=== PATIENT | male | born 1965 | race Caucasian/White ===

== ENCOUNTER → 2017-04-24 | Outpatient (CLI) | payer OTHER ==
--- NOTE | 2017-04-24 09:08 | XR ---
EXAMINATION TYPE: XR KUB DATE OF EXAM: 04/24/2017 9:03 AM CLINICAL HISTORY: History of kidney stone with right-sided pain. TECHNIQUE: 2 supine KUB images of the abdomen are obtained. COMPARISON: Prior abdominal x-ray June 05, 2016. CT abdomen and pelvis January 24, 2012. FINDINGS: There is marked interval improvement in right-sided calcific burden with 2 calculi measurin g up to 8 mm in size identified on current study. No definite left-sided nephrolithiasis. Coils from ventral wall hernia repair surgery are redemonstrated over the midline of the lower abdome n. Vascular calcification and pelvis is again seen. Osseous structures are intact. IMPRESSION: Two right-sided calculi measuring up to 8 mm on current study significantly improved from prior x-ray study.
== END | disposition home or self-care (01) ==
LOC: RADXRMAIN 08:41
PROVIDERS: ATTEND Urology
DX: N20.0 Calculus of kidney (principal)
CPT/HCPCS: 74000

== ENCOUNTER → 2018-01-27 | Outpatient (CLI) | payer OTHER ==
--- NOTE | 2018-01-27 09:56 | XR ---
EXAMINATION TYPE: XR KUB DATE OF EXAM: 01/27/2018 9:42 AM CLINICAL HISTORY: Right-sided kidney stones with increasing right-sided pain. TECHNIQUE: Two supine KUB images of the abdomen are obtained. COMPARISON: Abdominal x-ray April 24, 2017 FINDINGS: There is nonvisualization of 2 right-sided renal calculi measuring up to 6 mm long axis pro jecting over right 12th rib. The previously visualized larger calculus measuring 12 mm on current shanice dy is redemonstrated medial to these calculi but persists at level of L2 vertebra and likely is withi n collecting system at [facility]. No definite left-sided nephrolithiasis. Calcification of vas deferens mildred pected in the bilateral pelvis similar to prior. Lower central calcific foci may reflect tiny phlebol iths and are stable just above pubic symphysis. There is some multilevel spurring in the spine. There is overall nonobstructive bowel gas pattern. Th ere is mild to moderate degenerative change in both hips. IMPRESSION: Persistent right-sided nephrolithiasis, dominant calculus measures 12 mm on current study and is felt to be in collecting system or at [facility].
== END | disposition home or self-care (01) ==
LOC: RADXRMAIN 09:17
PROVIDERS: ATTEND Urology
DX: N20.0 Calculus of kidney (principal)
CPT/HCPCS: 74018

== ENCOUNTER → 2018-03-18 | Outpatient (CLI) | payer OTHER ==
--- NOTE | 2018-03-18 09:38 | XR ---
EXAMINATION TYPE: XR KUB DATE OF EXAM: 03/18/2018 HISTORY: Pain Comparison: None.Single KUB is submitted for interpretation. Findings: Right renal calculi: 7.1 mm mid pole right renal calculus. Right ureteral calculi: 9.1 mm calculus overlies the right renal pelvis. Left renal calculi: None Visualized. Left ureteral calculi: None Visualized. Pelvic calcifications: None Visualized. Bowel gas pattern is unremarkable. No free air. No mass effects. IMPRESSION: 1. 9.1 mm calculus overlies the right renal pelvis. 2. Right renal calculus.
== END | disposition home or self-care (01) ==
LOC: RADXRMAIN 08:48
PROVIDERS: ATTEND Urology
DX: N20.0 Calculus of kidney (principal)
CPT/HCPCS: 74018

== ENCOUNTER → 2018-04-16 | Outpatient (CLI) | payer OTHER ==
--- NOTE | 2018-04-16 10:47 | XR ---
EXAMINATION TYPE: XR abdomen 1V DATE OF EXAM: 04/16/2018 CLINICAL DATA: 52 year-old male right renal calculus, [facility] COMPARISON: 03/18/2018 FINDINGS: Cholecystectomy clips. Nonobstructive bowel gas pattern. Scattered mild stool on the right. There are 2 calculi in the right mid abdomen measuring 9 mm and 7 mm, somewhat medially located to th e right renal shadow. Coils in the mid abdomen from prior mesh repair. Vascular calcifications in the pelvis. Mild degenerative changes of hips. IMPRESSION: 2 calculi on the right measuring 9 mm and 7 mm. These is somewhat medially located relative to the ri ght renal shadow, possibly within the collecting system.
== END | disposition home or self-care (01) ==
LOC: RADXRMAIN 09:01
PROVIDERS: ATTEND Urology
DX: N20.0 Calculus of kidney (principal)
CPT/HCPCS: 74018

== ENCOUNTER 2019-09-12 19:36 | Inpatient (IN) | payer MEDICARE, OTHER ==
[2019-09-12] MEDS ORDERED: ONDANSETRON 4 MG/2 ML VIAL IVP STA (20:08)
[2019-09-12] MEDS ORDERED: SODIUM CHLORIDE 0.9% 1,000 ML IV STA ×2 (20:08)
[2019-09-12] MEDS ORDERED: MORPHINE SULFATE 4 MG/ML SYRINGE IVP STA (20:09)
[2019-09-12] MEDS ORDERED: LABETALOL 5 MG/ML VIAL MDV IVP STA (20:09)
--- NOTE | 2019-09-12 20:51 | ED ---
Back Pain HPI <David Mayen - Last Filed: 09/12/19 20:58> - General Source: patient, EMS, RN notes reviewed, old records reviewed Limitations: no limitations <Natasha Geller - Last Filed: 09/12/19 21:09> - General Chief Complaint: Back Pain/Injury Stated Complaint: Urogenital Time Seen by Provider: 09/12/19 19:50 - History of Present Illness Initial Comments: This patient's 53-year-old male, who presents emergency Department today from transfer form and come down so. That time he was diagnosed with dysuria, and a 4 mm right ureteral stone. Patient's urologist is Dr. Nolan. He reports that he has had some polyuria for the past day and complaining of right flank pain starting last night. Patient also complained of a significant headache with an elevated blood pressure at the emergency room. He had a CAT scan of his head which showed no acute changes. He also recommends emergency department quite hypertensive, with blood pressures of 190/111. He did have his blood pressure medications today as scheduled. Patient was transferred here for concerns for urinary tract infection associated with obstructing right ureteral stone. (Natasha Geller) - Related Data Home Medications Medication Instructions Recorded Confirmed Levothyroxine Sodium [Synthroid] 112 mcg PO DAILY 03/19/16 06/05/16 Lisinopril-Hctz 20-25 mg 2 tab PO QAM 03/19/16 06/05/16 [Zestoretic 20-25] Hydrocodone/Acetaminophen [[place] 1 tab PO Q4H PRN 04/01/16 06/05/16 10-325] Previous Rx's Medication Instructions Recorded Hydrocodone/Acetaminophen [[place] 1 each PO Q4HR PRN #30 tab 06/06/16 7.5-325] Allergies Allergy/AdvReac Type Severity Reaction Status Date / Time sulfamethoxazole Allergy Intermediate Rash/Hives Verified 09/12/19 19:50 [From Bactrim] trimethoprim [From Bactrim] Allergy Intermediate Rash/Hives Verified 09/12/19 19:50 Review of Systems ROS Other: All systems not noted in ROS Statement are negative. <David Mayen - Last Filed: 09/12/19 20:58> ROS Other: All systems not noted in ROS Statement are negative. <Natasha Geller - Last Filed: 09/12/19 21:09> ROS Statement: Those systems with pertinent positive or pertinent negative responses have been documented in the HPI. Past Medical History Past Medical History: Hypertension, Renal Disease Additional Past Medical History / Comment(s): Kidney stones, gout, UTI. History of Any Multi-Drug Resistant Organisms: None Reported Past Surgical History: Adenoidectomy, Ear Surgery, Hernia Repair, Orthopedic Surgery Additional Past Surgical History / Comment(s): lithotripsy, gall bladder removed. Past Anesthesia/Blood Transfusion Reactions: No Reported Reaction, Motion Sickness Past Psychological History: No Psychological Hx Reported Smoking Status: Never smoker Past Alcohol Use History: Rare Past Drug Use History: None Reported - Past Family History Father Family Medical History: Diabetes Mellitus Additional Family Medical History / Comment(s): LIVER &COLON CANCER. KIDNEY STONES Mother History Unknown: Yes Additional Family Medical History / Comment(s): MOM IS HEALTHY SHE STATES NO MEDICAL PROBLEMS <Tori Gellerily - Last Filed: 09/12/19 21:09> General Exam Limitations: no limitations General appearance: alert, in no apparent distress Head exam: Present: atraumatic, normocephalic, normal inspection Eye exam: Present: normal appearance, PERRL, EOMI. Absent: scleral icterus, conjunctival injection, periorbital swelling ENT exam: Present: normal exam, mucous membranes moist Neck exam: Present: normal inspection. Absent: tenderness, meningismus, lymphadenopathy Respiratory exam: Present: normal lung sounds bilaterally. Absent: respiratory distress, wheezes, rales, rhonchi, stridor Cardiovascular Exam: Present: regular rate, normal rhythm, normal heart sounds. Absent: systolic murmur, diastolic murmur, rubs, gallop, clicks GI/Abdominal exam: Present: soft, tenderness (Right-sided lower abdominal tenderness and right CVA tenderness.), normal bowel sounds. Absent: distended, guarding, rebound, rigid Extremities exam: Present: normal inspection, full ROM, normal capillary refill. Absent: tenderness, pedal edema, joint swelling, calf tenderness Back exam: Present: normal inspection Neurological exam: Present: alert, oriented X3, CN II-XII intact Psychiatric exam: Present: normal affect, normal mood <Tori Gellerily - Last Filed: 09/12/19 21:09> - General Exam Comments Initial Comments: 53-year-old male. Patient appears in moderate discomfort. (Natasha Geller) Course <David Mayen - Last Filed: 09/12/19 20:58> Vital Signs 09/12/19 19:42 Temperature 99.6 F Pulse Rate 90 Respiratory 18 Rate Blood Pressure 192/111 O2 Sat by Pulse 96 Oximetry - Reevaluation(s) Reevaluation #1: 09/12/19 20:53 PA supervision: I personally did evaluate the patient he did present with complaints of right flank pain is started around 11 AM today he did present to [facility] he complains worse than usual right flank pain it fevers chills sweats shakes he's been having intermittent episodes of hematuria. He also was noted have a markedly elevated blood pressure he did also have a headache that started in the back was head radiating around to the front. He did have a CAT scan done at the other facility which was negative. He presents here with evidence of hydroureter with a 4 mm stone at the [facility] on that side. He also demonstrates evidence of pyelonephritis. 09/12/19 20:58 The case was discussed with Dr. Phelps. Will be nothing by mouth after midnight. His blood pressure has improved. Due to blood pressure issues and other medical issues patient be admitted to Dr. Kenyon service (David Mayen) Medical Decision Making - Lab Data Result diagrams: 09/12/19 20:40 - Radiology Data Radiology results: report reviewed <YimiNatasha - Last Filed: 09/12/19 21:09> - Medical Decision Making [id number] male presents today for transfer for [facility] for concern for right sided 4 mm uteropelvic junction stone with associated urinary tract infection. Urine culture was completed there. He was given 1 g of Rocephin prior to arrival. He wants emergency Department hypertensive, was given pain medication and blood pressure had went down on its own. Patient at this time did have EKG performed another lab testing was completed. We discussed the case with medicine Dr. scott with a consult to Dr. Neil Quintana, the urologist she is adult education professional. Patient will be remaining nothing by mouth at midnight if a procedure such as stenting would need to be done. will receive 1 g of Rocephin every 24-hour hours at this time. Given 1 dose of Flomax and pain medicine and is much improved. (Natasha Geller) - Lab Data Lab Results 09/12/19 Range/Units 20:40 WBC 13.8 H (3.8-10.6) k/uL RBC 4.33 (4.30-5.90) m/uL Hgb 13.5 (13.0-17.5) gm/dL Hct 39.5 (39.0-53.0) % MCV 91.1 (80.0-100.0) fL MCH 31.1 (25.0-35.0) pg MCHC 34.1 (31.0-37.0) g/dL RDW 15.6 H (11.5-15.5) % Plt Count 185 (150-450) k/uL Neutrophils % 91 % Lymphocytes % 5 % Monocytes % 3 % Eosinophils % 1 % Basophils % 0 % Neutrophils # 12.5 H (1.3-7.7) k/uL Lymphocytes # 0.7 L (1.0-4.8) k/uL Monocytes # 0.4 (0-1.0) k/uL Eosinophils # 0.1 (0-0.7) k/uL Basophils # 0.0 (0-0.2) k/uL 09/12/19 21:05 EKG performed and 2019 shows normal sinus rhythm and axis. A complete right bundle branch block. Possible inferior infarct age undetermined. Ventricular rate of 88 beats were minute period. Intervals 158 ms. QR restriction is 160 no seconds. QT QTc is 36/460 70 seconds. (Natasha Geller) - Radiology Data CT of abdomen and pelvis shows obstructing Tikosyn the right uteropelvic junction with moderate right-sided hydronephrosis and. Effort edema. Numerous right renal colliculi. Stable left renal monitor to calculus. CT of the brain was negative for any acute abdomen or maladies, slight matter hypodensity sugge sted chronic small vessel ischemia. (Natasha Geller) Disposition <David Mayen - Last Filed: 09/12/19 20:58> Is patient prescribed a controlled substance at d/c from ED?: No Time of Disposition: 21:08 <Natasha Geller - Last Filed: 09/12/19 21:09> Clinical Impression: Right ureteral stone, Hypertension, UTI (urinary tract infection) Disposition: ADMITTED IP TO THIS HOSP Condition: Stable Referrals: Torrey Hand MD [Primary Care Provider] - 1-2 days
[2019-09-12 21:00] LABS: Basophils % (A) 0 %; Eosinophils # (A) 0.1 k/uL (0-0.7); Eosinophils % (A) 1 %; HCT 39.5 % (39.0-53.0); HGB 13.5 gm/dL (13.0-17.5); Lymphocytes # (A) 0.7 k/uL (1.0-4.8); Lymphocytes % (A) 5 %; MCH 31.1 pg (25.0-35.0); MCHC 34.1 g/dL (31.0-37.0); MCV 91.1 fL (80.0-100.0); Mean Platelet Volume 5.8; Monocytes # (A) 0.4 k/uL (0-1.0); Monocytes % (A) 3 %; Neutrophils # (A) 12.5 k/uL (1.3-7.7); Neutrophils % (A) 91 %; Platelet Count 185 k/uL (150-450); RBC 4.33 m/uL (4.30-5.90); RDW 15.6 % (11.5-15.5); WBC 13.8 k/uL (3.8-10.6)
[2019-09-12] MEDS ORDERED: TAMSULOSIN 0.4 MG CAP.ER.24H PO STA (21:03)
--- NOTE | 2019-09-12 21:06 | XR ---
EXAMINATION TYPE: XR chest 2V DATE OF EXAM: 09/12/2019 COMPARISON: NONE HISTORY: Hypertension. TECHNIQUE: Frontal and lateral views of the chest are obtained. FINDINGS: Heart and mediastinum are normal. Lungs are clear of infiltrate. There is no pleural effus ion. There are no hilar masses. IMPRESSION: No active cardiopulmonary disease.
[2019-09-12] MEDS ORDERED: ONDANSETRON 4 MG/2 ML VIAL IVP PRN (21:09)
[2019-09-12] MEDS ORDERED: KETOROLAC 30 MG/ML 1 ML VIAL IVP PRN (21:09)
[2019-09-12] MEDS ORDERED: IBUPROFEN 400 MG TAB PO PRN (21:09)
[2019-09-12] MEDS ORDERED: NALOXONE 0.4 MG/ML 1 ML VIAL IV PRN (21:09)
[2019-09-12] MEDS ORDERED: ACETAMINOPHEN TAB 325 MG TAB PO PRN (21:09)
[2019-09-12 21:17] LABS: Albumin 3.6 g/dL (3.5-5.0); Calcium 9.2 mg/dL (8.4-10.2); Magnesium 1.7 mg/dL (1.6-2.3); Potassium 3.6 mmol/L (3.5-5.1); Total Bilirubin 0.9 mg/dL (0.2-1.3); Total Protein 6.7 g/dL (6.3-8.2)
[2019-09-12] MEDS: SODIUM CHLORIDE 0.9% 1,000 ML IV SCH (22:33)
[2019-09-13 03:04] LABS: Appearance,Urine Cloudy (Clear); Bacteria,Urine Rare /hpf; Bilirubin,Urine Negative (Negative); Blood,Urine Small (Negative); Color,Urine Yellow; Glucose,Urine (UA) Negative (Negative); Hyaline Casts,Urine 4 /lpf (0-2); Ketones,Urine Negative (Negative); Leukocyte Esterase,Urine Large (Negative); Mucus,Urine Few /hpf; Nitrite,Urine Negative (Negative); PH, Urine 6.5 (5.0-8.0); Protein,Urine 2+ (Negative); RBC,Urine 19 /hpf (0-5); Specific Gravity,Urine 1.017 (1.001-1.035); Squamous Epithelial Cell,Urine 2 /hpf (0-4); Urobilinogen,Urine <2.0 mg/dL (<2.0)
[2019-09-13] MEDS: MORPHINE SULFATE 4 MG/ML SYRINGE IV PRN ×3 (04:32→23:53)
[2019-09-13] MEDS ORDERED: LEVOTHYROXINE 112 MCG TAB PO SCH (06:30)
[2019-09-13] MEDS: SODIUM CHLORIDE 0.9% 1,000 ML IV SCH ×3 (08:05→16:49)
[2019-09-13] MEDS ORDERED: PANTOPRAZOLE 40 MG/10 ML VIAL IV SCH (09:00)
[2019-09-13] MEDS ORDERED: LISINOPRIL-HCTZ 20-25 MG 1 EACH TAB PO SCH (09:00)
[2019-09-13] MEDS ORDERED: CYCLOBENZAPRINE 5 MG TAB PO PRN (11:06)
[2019-09-13] MEDS: ENOXAPARIN 40 MG/0.4 ML SYRINGE SQ SCH (11:14)
--- NOTE | 2019-09-13 13:47 | P.GSCN ---
History of Present Illness Consult date: 09/13/19 Reason for Consult: right ureteral calculi History of present illness: Mr. Mason is a 53-year-old male, who was transfered from an outside hospital for ureteral stone and UTI. He presented with dysuria, flank pain and a 4 mm right ureteral stone and was subsquently transfered to [facility] for managment of his UTI and stone. He has seen Dr Koroma in the past and he underwent PCNL in 2016. He has hx of recurrent stones, multiple surgeries before. He did complains of chills and subjective fever, but he was afebrile on presentation to the ED. This am he indicates he still has pain in right flank Review of Systems - Constitutional Reports chills, Reports fatigue - EENT Ears, nose, mouth and throat: Reports headache, Denies dysphagia - Cardiovascular Denies chest pain, Denies dyspnea on exertion - Respiratory Denies cough, Denies dyspnea - Gastrointestinal Reports nausea - Genitourinary Reports dysuria, Reports flank pain, Reports kidney stones - Neurological Denies confusion, Denies weakness Past Medical History Past Medical History: Hypertension, Renal Disease, Thyroid Disorder Additional Past Medical History / Comment(s): Kidney stones, gout, UTI. History of Any Multi-Drug Resistant Organisms: None Reported Past Surgical History: Adenoidectomy, Ear Surgery, Hernia Repair, Orthopedic S urgery Additional Past Surgical History / Comment(s): lithotripsy, gall bladder removed. Past Anesthesia/Blood Transfusion Reactions: No Reported Reaction, Motion Sickness Past Psychological History: No Psychological Hx Reported Smoking Status: Never smoker Past Alcohol Use History: Rare Past Drug Use History: None Reported - Past Family History Father Family Medical History: Diabetes Mellitus Additional Family Medical History / Comment(s): LIVER &COLON CANCER. KIDNEY STONES Mother History Unknown: Yes Additional Family Medical History / Comment(s): MOM IS HEALTHY SHE STATES NO MEDICAL PROBLEMS Medications and Allergies Home Medications Medication Instructions Recorded Confirmed Type Lisinopril-Hctz 20-25 mg 2 tab PO QAM PRN 03/19/16 09/13/19 History [Zestoretic 20-25] Cyclobenzaprine [Flexeril] 5 mg PO TID PRN 09/13/19 09/13/19 History Ibuprofen 800 mg PO Q6H PRN 09/13/19 09/13/19 History Levothyroxine Sodium [Synthroid] 75 mcg PO DAILY 09/13/19 09/13/19 History Lisinopril-Hctz 20-25 mg 1 tab PO BID PRN 09/13/19 09/13/19 History [Zestoretic 20-25] Allergies Allergy/AdvReac Type Severity Reaction Status Date / Time sulfamethoxazole Allergy Intermediate Rash/Hives Verified 09/13/19 11:37 [From Bactrim] trimethoprim [From Bactrim] Allergy Intermediate Rash/Hives Verified 09/13/19 11:37 Surgical - Exam Vital Signs Temp Pulse Resp BP Pulse Ox 99.6 F 90 18 192/111 96 09/12/19 19:42 09/12/19 19:42 09/12/19 19:42 09/12/19 19:42 09/12/19 19:42 - General well developed, well nourished, no distress - Eyes normal ocular movement, no pale - ENT normal mucosa, no hearing loss - Respiratory normal expansion, normal respiratory effort - Abdomen Abdomen: soft, non tender, no distended - Psychiatric oriented to time, oriented to person, oriented to place, speech is normal Results - Labs 09/12/19 20:40 09/12/19 20:40 Abnormal Lab Results - Last 24 Hours (Table) 09/12/19 09/12/19 Range/Units 20:40 20:40 WBC 13.8 H (3.8-10.6) k/uL RDW 15.6 H (11.5-15.5) % Neutrophils # 12.5 H (1.3-7.7) k/uL Lymphocytes # 0.7 L (1.0-4.8) k/uL Creatinine 1.80 H (0.66-1.25) mg/dL Glucose 125 H (74-99) mg/dL Diabetes panel 09/12/19 Range/Units 20:40 Sodium 139 (137-145) mmol/L Potassium 3.6 (3.5-5.1) mmol/L Chloride 103 (98-107) mmol/L Carbon Dioxide 28 (22-30) mmol/L BUN 19 (9-20) mg/dL Creatinine 1.80 H (0.66-1.25) mg/dL Glucose 125 H (74-99) mg/dL Calcium 9.2 (8.4-10.2) mg/dL AST 34 (17-59) U/L ALT 59 (21-72) U/L Alkaline Phosphatase 55 (38-126) U/L Total Protein 6.7 (6.3-8.2) g/dL Albumin 3.6 (3.5-5.0) g/dL Calcium panel 09/12/19 Range/Units 20:40 Calcium 9.2 (8.4-10.2) mg/dL Albumin 3.6 (3.5-5.0) g/dL Pituitary panel 09/12/19 Range/Units 20:40 Sodium 139 (137-145) mmol/L Potassium 3.6 (3.5-5.1) mmol/L Chloride 103 (98-107) mmol/L Carbon Dioxide 28 (22-30) mmol/L BUN 19 (9-20) mg/dL Creatinine 1.80 H (0.66-1.25) mg/dL Glucose 125 H (74-99) mg/dL Calcium 9.2 (8.4-10.2) mg/dL Adrenal panel 09/12/19 Range/Units 20:40 Sodium 139 (137-145) mmol/L Potassium 3.6 (3.5-5.1) mmol/L Chloride 103 (98-107) mmol/L Carbon Dioxide 28 (22-30) mmol/L BUN 19 (9-20) mg/dL Creatinine 1.80 H (0.66-1.25) mg/dL Glucose 125 H (74-99) mg/dL Calcium 9.2 (8.4-10.2) mg/dL Total Bilirubin 0.9 (0.2-1.3) mg/dL AST 34 (17-59) U/L ALT 59 (21-72) U/L Alkaline Phosphatase 55 (38-126) U/L Total Protein 6.7 (6.3-8.2) g/dL Albumin 3.6 (3.5-5.0) g/dL Assessment and Plan Assessment: 53 yo male with hx of 4 mm right distal ureteral stone and UTI. He has hx of recurrent stone. He was complaining of subjective fever and chills, of note he was afebrile on presentation Plan: -UA/Urine culture -Continue abx -OR for cysto and right ureteral stent placemnt
[2019-09-13] MEDS ORDERED: IV FLUID CONTINUATION 300 ML IV ONE (14:13)
[2019-09-13] MEDS ORDERED: MIDAZOLAM 2 MG/2 ML VIAL ONE (15:09)
[2019-09-13] MEDS ORDERED: PROPOFOL 10 MG/ML 20 ML VIAL IV ONE (15:09)
[2019-09-13] MEDS ORDERED: SUCCINYLCHOLINE CHLORIDE VIAL 200 MG/10 ML VIAL IV ONE (15:09)
[2019-09-13] MEDS ORDERED: LIDOCAINE 1% INJ 10MG/ML (20 ML MDV) ONE (15:09)
[2019-09-13] MEDS ORDERED: LABETALOL 5 MG/ML VIAL MDV ONE (15:09)
[2019-09-13] MEDS ORDERED: fentaNYL (PF) 50 MCG/ML 2 ML AMP ONE (15:09)
--- NOTE | 2019-09-13 15:48 | P.OP ---
Date of Procedure: 09/13/19 Preoperative Diagnosis: Right ureteral stone with obstruction, urinary tract infection Postoperative Diagnosis: Same Procedure(s) Performed: Cystoscopy, placement of double-J catheter right Anesthesia: JORGEA Surgeon: Raymundo Koroma Estimated Blood Loss (ml): 0 Pathology: none sent Condition: stable Disposition: PACU Indications for Procedure: The patient is a 53-year-old gentleman well known to me for recurrent urolithiasis. He presented recently after weeks history of right-sided flank pain. Seen in [place] and identified to have a 4-5 mm [facility] stone on the right causing obstruction. His urine was also infected. He is transferred to [facility] where he has been evaluated and admitted. He comes for cystoscopy stent replacement because of the urine infection
--- NOTE | 2019-09-13 15:59 | FL ---
EXAMINATION TYPE: FL guidance operating room DATE OF EXAM: 09/13/2019 CLINICAL HISTORY: Right kidney stone. TECHNIQUE: Fluoroscopy. COMPARISON: None. FINDINGS: Fluoroscopic guidance was provided during right ureter stent insertion procedure performed by Dr. Koroma. A total of 37 seconds of fluoroscopic time was utilized during the procedure and 1 sp ot fluoroscopic image is acquired. Single image acquired shows partial visualization of proximal righ t ureter stent. IMPRESSION: As Above.
[2019-09-13] MEDS ORDERED: amLODIPine 5 MG TAB PO SCH (19:45)
--- NOTE | 2019-09-13 19:46 | P.HPIM ---
History of Present Illness H&P Date: 09/13/19 Chief Complaint: Right flank pain History of presenting complaint: This is a pleasant 53-year-old patient of Dr. Hand. Chronic stable medical conditions include hypertension, hypothyroid and obesity. This is of multiple kidney stones in a different procedures done. He follows with Dr. Nolan from neurology. He believes he has calcium oxalate stones. On this occasion been having increasing pain on the right flank last 2 days. No nausea vomiting. Has had some chills. He was seen up at the outside hospital. Found to have a stone at the right UV junction. Sent down here. Has infected appearing urine. Started on IV ceftriaxone. Patient will resume itself. Saw the patient this morning. This outpatient patient's supposed to go down for a right-sided double-J stent catheter placement. Review of systems: GEN.: Chills, tired EYES: None HEENT: None NECK: None RESPIRATORY: None CARDIOVASCULAR: None GASTROINTESTINAL: As above GENITOURINARY: None MUSCULOSKELETAL: None LYMPHATICS: None HEMATOLOGICAL: None PSYCHIATRY: None NEUROLOGICAL: None Past medical history: Hypertension, chronic kidney disease, hypothyroid, kidney stones, history of gout Social history: Does not smoke. Alcohol occasionally. 16-year-old son lives with him. 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 Otherwise is on disability. Physical examination: VITAL SIGNS: 99.6, 18, 90, 166/98, 96% room air] GENERAL: BMI 42.8, laying in bed, awake. EYES: Pupils equal. Conjunctiva normal. HEENT: External appearance of nose and ears normal, oral cavity grossly normal. NECK: JVD not raised; masses not palpable. HEART: First and second heart sounds are normal; no edema. LUNGS: Respiratory rate normal; clear to auscultation. ABDOMEN: Soft, right flank tenderness, no guarding or rigidity, liver spleen not palpable, no masses palpable. PSYCH: Alert and oriented x3; mood and affect normal. NEUROLOGICAL: Cranial nerves grossly intact; no facial asymmetry, power and sensation grossly intact. LYMPHATICS: No lymph nodes palpable in the axilla and neck INVESTIGATIONS, reviewed in the clinical context: White count 10.8 hemoglobin 13.5 platelets 185 potassium 3.6 creatinine 1.0 UA protein 2+ leukoesterase positive WBC positive WBC close posterior Computed tomography scan of the outside hospital showed right UV junction stone Assessment: -Obstructive ureteral stones at the right UV junction causing some hydronephrosis -Acute pyelonephritis secondary to kidney stone -Chronic kidney disease stage III, patient is on an TESS inhibitor with diuretics and also takes Motrin -Morbid obesity BMI 42.8 -Hypothyroid -Essential hypertension, with chronic kidney disease Plan: -Patient is on IV ceftriaxone. Increase IV fluids. Will stop patient's combination pill of TESS inhibitor and hydrochlorothiazide, we'll also stop Motrin. Patient is this afternoon due to good a double-J stent catheter placement. For blood pressure. The patient on amlodipine. Lovenox for DVT prophylaxis. Care was discussed with the patient and the mother question were answered. Past Medical History Past Medical History: Hypertension, Renal Disease, Thyroid Disorder Additional Past Medical History / Comment(s): Kidney stones, gout, UTI. History of Any Multi-Drug Resistant Organisms: None Reported Past Surgical History: Adenoidectomy, Ear Surgery, Hernia Repair, Orthopedic Surgery Additional Past Surgical History / Comment(s): lithotripsy, gall bladder removed. Past Anesthesia/Blood Transfusion Reactions: No Reported Reaction, Motion Sickness Past Psychological History: No Psychological Hx Reported Smoking Status: Never smoker Past Alcohol Use History: Rare Past Drug Use History: None Reported - Past Family History Father Family Medical History: Diabetes Mellitus Additional Family Medical History / Comment(s): LIVER &COLON CANCER. KIDNEY STONES Mother History Unknown: Yes Additional Family Medical History / Comment(s): MOM IS HEALTHY SHE STATES NO MEDICAL PROBLEMS Medications and Allergies Home Medications Medication Instructions Recorded Confirmed Type Lisinopril-Hctz 20-25 mg 2 tab PO QAM PRN 03/19/16 09/13/19 History [Zestoretic 20-25] Cyclobenzaprine [Flexeril] 5 mg PO TID PRN 09/13/19 09/13/19 History Ibuprofen 800 mg PO Q6H PRN 09/13/19 09/13/19 History Levothyroxine Sodium [Synthroid] 75 mcg PO DAILY 09/13/19 09/13/19 History Lisinopril-Hctz 20-25 mg 1 tab PO BID PRN 09/13/19 09/13/19 History [Zestoretic 20-25] Allergies Allergy/AdvReac Type Severity Reaction Status Date / Time sulfamethoxazole Allergy Intermediate Rash/Hives Verified 09/13/19 14:04 [From Bactrim] trimethoprim [From Bactrim] Allergy Intermediate Rash/Hives Verified 09/13/19 14:04 Physical Exam Vitals: Vital Signs Temp Pulse Pulse Pulse Resp BP BP 09/13/19 06:00 99 193/100 09/13/19 04:25 98.2 F 95 18 182/98 09/13/19 00:30 168/98 09/12/19 23:11 87 169/84 09/12/19 23:00 98.0 F 93 22 181/127 09/12/19 22:00 120/86 09/12/19 21:30 166/98 09/12/19 21:00 166/98 09/12/19 20:48 166/98 09/12/19 19:42 99.6 F 90 18 192/111 Pulse Ox 09/13/19 06:00 09/13/19 04:25 95 09/13/19 00:30 09/12/19 23:11 09/12/19 23:00 99 09/12/19 22:00 91 L 09/12/19 21:30 91 L 09/12/19 21:00 09/12/19 20:48 94 L 09/12/19 19:42 96 Intake and Output 09/12/19 09/13/19 09/13/19 22:59 06:59 14:59 Other: Voiding Method Toilet Toilet Urinal Urinal # Voids 2 Weight 131.542 kg Results CBC & Chem 7: 09/12/19 20:40 09/12/19 20:40 Labs: Abnormal Lab Results - Last 24 Hours (Table) 09/12/19 09/12/19 09/13/19 Range/Units 20:40 20:40 02:33 WBC 13.8 H (3.8-10.6) k/uL RDW 15.6 H (11.5-15.5) % Neutrophils # 12.5 H (1.3-7.7) k/uL Lymphocytes # 0.7 L (1.0-4.8) k/uL Creatinine 1.80 H (0.66-1.25) mg/dL Glucose 125 H (74-99) mg/dL Urine Protein 2+ H (Negative) Urine Blood Small H (Negative) Ur Leukocyte Esterase Large H (Negative) Urine RBC 19 H (0-5) /hpf Urine WBC 87 H (0-5) /hpf Urine WBC Clumps Few H (None) /hpf Urine Bacteria Rare H (None) /hpf Hyaline Casts 4 H (0-2) /lpf Urine Mucus Few H (None) /hpf Thrombosis Risk Factor Assmnt - Choose All That Apply Each Factor Represents 1 point: Age 41-60 years Thrombosis Risk Factor Assessment Total Risk Factor Score: 1 Thrombosis Risk Factor Assessment Level: Low Risk
[2019-09-13] MEDS ORDERED: amLODIPine 5 MG TAB PO ONE (23:45)
[2019-09-14] MEDS: SODIUM CHLORIDE 0.9% 1,000 ML IV SCH ×4 (04:35→22:31)
[2019-09-14] MEDS: LEVOTHYROXINE 75 MCG TAB PO SCH (05:46)
[2019-09-14] MEDS: MORPHINE SULFATE 4 MG/ML SYRINGE IV PRN ×2 (05:46→19:58)
[2019-09-14] MEDS: amLODIPine 10 MG TAB PO SCH (05:46)
[2019-09-14] MEDS: ENOXAPARIN 40 MG/0.4 ML SYRINGE SQ SCH (08:54)
[2019-09-14 09:32] LABS: Calcium 8.4 mg/dL (8.4-10.2); Potassium 3.4 mmol/L (3.5-5.1)
[2019-09-14] MEDS: cloNIDine HCL 0.1 MG TAB PO SCH ×3 (09:35→22:29)
[2019-09-14] MEDS ORDERED: POTASSIUM CHLORIDE ER 20 MEQ TAB.ER PO STA (10:02)
--- NOTE | 2019-09-14 14:41 | P.PN ---
Subjective Progress Note Date: 09/14/19 The patient underwent cystoscopy with stent placement for an obstructing right ureteral stone and a urine infection yesterday. He feels better. His blood pressure is better. His vital signs are better. The urine culture was negative. From a urologic standpoint he can be sent home on Bactrim or Cipro twice a day for 10 days. I will set him up for surgical procedure in the near future. Objective - Vital Signs Vital signs: Vital Signs Temp 98.7 F 09/14/19 12:06 Pulse 90 09/14/19 12:06 Resp 20 09/14/19 12:06 BP 135/87 09/14/19 12:06 Pulse Ox 92 L 09/14/19 12:06 Intake & Output 09/13/19 09/14/19 09/14/19 18:59 06:59 18:59 Intake Total 560 Output Total 150 1425 750 Balance 410 -1425 -750 Intake: IV 320 Oral 240 Output: Urine 150 1425 750 Estimated Blood Loss 0 Other: Voiding Method Toilet Toilet Toilet Urinal Urinal Urinal # Voids 3 2 # Bowel Movements 0 - Labs CBC & Chem 7: 09/12/19 20:40 09/14/19 08:39 Labs: Abnormal Lab Results - Last 24 Hours (Table) 09/14/19 Range/Units 08:39 Potassium 3.4 L (3.5-5.1) mmol/L Creatinine 1.57 H (0.66-1.25) mg/dL Glucose 119 H (74-99) mg/dL Microbiology - Last 24 Hours (Table) 09/13/19 02:33 Urine Culture - Final Urine,Voided
--- NOTE | 2019-09-15 00:15 | P.PN ---
Progress Note - Text Progress Note Date: 09/14/19 Chief Complaint: Right flank pain History of presenting complaint: This is a pleasant 53-year-old patient of Dr. Hand. Chronic stable medical conditions include hypertension, hypothyroid and obesity. History of multiple kidney stones, different procedures done. He follows with Dr. Nolan from urology, He believes he has calcium oxalate stones. On this occasion been having increasing pain on the right flank last 2 days. No nausea vomiting. Has had some chills. He was seen up at the outside hospital. Found to have a stone at the right UV junction. Sent down here. Has infected appearing urine. Started on IV ceftriaxone. Right-sided double-J stent catheter replaced. Patient also felt to have chronic kidney disease. TESS inhibitor and Motrin were discontinued. IV fluids given. Blood pressures were running high. Medication being adjusted Today-. Was discussed with the patient. Questions were answered. No abdominal pain. Blood pressure medication being adjusted. IV fluids were restarted. Active Medications Acetaminophen (Tylenol Tab) 650 mg PO Q6HR PRN PRN Reason: Mild Pain or Fever > 100.5 Last Admin: 09/12/19 23:06 Dose: 650 mg Documented by: Amlodipine Besylate (Norvasc) 10 mg PO DAILY [facility] Last Admin: 09/14/19 05:46 Dose: 10 mg Documented by: Clonidine (Catapres) 0.1 mg PO TID [facility] Last Admin: 09/14/19 22:29 Dose: 0.1 mg Documented by: Cyclobenzaprine HCl (Flexeril) 5 mg PO TID PRN PRN Reason: MUSCLE SPASMS Enoxaparin Sodium (Lovenox) 40 mg SQ DAILY [facility] Last Admin: 09/14/19 08:54 Dose: 40 mg Documented by: Ceftriaxone Sodium 1 gm/ (Sodium Chloride) 50 mls @ 100 mls/hr IVPB Q24HR [facility] Last Admin: 09/14/19 08:54 Dose: 100 mls/hr Documented by: Sodium Chloride (Saline 0.9%) 1,000 mls @ 100 mls/hr IV .Q10H [facility] Last Admin: 09/14/19 22:31 Dose: 100 mls/hr Documented by: Levothyroxine Sodium (Synthroid) 75 mcg PO 0630 [facility] Last Admin: 09/14/19 05:46 Dose: 75 mcg Documented by: Morphine Sulfate (Morphine Sulfate (Inj)) 4 mg IV Q4HR PRN PRN Reason: Severe Pain Last Admin: 09/14/19 19:58 Dose: 4 mg Documented by: Naloxone HCl (Narcan) 0.2 mg IV Q2M PRN PRN Reason: Opioid Reversal Ondansetron HCl (Zofran) 4 mg IVP Q8HR PRN PRN Reason: Nausea And Vomiting Physical examination: VITAL SIGNS: 98.7, 90, 20, 1 81/97 GENERAL: Laying in bed, awake. EYES: Pupils equal. Conjunctiva normal. HEENT: External appearance of nose and ears normal, oral cavity grossly normal. NECK: JVD not raised; masses not palpable. HEART: First and second heart sounds are normal; no edema. LUNGS: Respiratory rate normal; clear to auscultation. ABDOMEN: Soft, right flank tenderness, no guarding or rigidity, liver spleen not palpable, no masses palpable. PSYCH: Alert and oriented x3; mood and affect normal. INVESTIGATIONS, reviewed in the clinical context: Creatinine 1.57 Urine culture negative Previous testing White count 10.8 hemoglobin 13.5 platelets 185 potassium 3.6 creatinine 1.8 UA protein 2+ leukoesterase positive WBC positive WBC close posterior Computed tomography scan of the outside hospital showed right UV junction stone Assessment: -Obstructive ureteral stones at the right UV junction causing some hydronephrosis -Acute pyelonephritis secondary to kidney stone -Chronic kidney disease stage III, patient is on an TESS inhibitor with diuretics and also takes Motrin -Morbid obesity BMI 42.8 -Hypothyroid -Essential hypertension, with chronic kidney disease, with urgency Plan: Continue with 24 hours of ceftriaxone. Amlodipine was added and Catapres was added. IV fluids resumed. Care discussed with the patient. Repeat labs in the morning. Hopefully can be discharged tomorrow.
[2019-09-15] MEDS: LEVOTHYROXINE 75 MCG TAB PO SCH (05:58)
[2019-09-15] MEDS: amLODIPine 10 MG TAB PO SCH (05:58)
[2019-09-15] MEDS: ENOXAPARIN 40 MG/0.4 ML SYRINGE SQ SCH (07:35)
[2019-09-15] MEDS: cloNIDine HCL 0.1 MG TAB PO SCH (07:38)
[2019-09-15 12:11] LABS: Calcium 8.6 mg/dL (8.4-10.2); Potassium 3.5 mmol/L (3.5-5.1)
[2019-09-15 13:29] VITALS: RESP 18; TEMP 99.2
[2019-09-15 14:17] VITALS: BP 142/85; PULSE 90
--- NOTE | 2019-09-17 12:40 | P.DS ---
Providers Date of admission: 09/12/19 20:48 Expected date of discharge: 09/15/19 Attending physician: Mukesh Kenyon Consults: 09/12/19 21:09 Consult Physician Stat Consulting Provider: Altaf Phelps Consult Reason/Comments: Right flank pain, 4mm upj stone Do you want consulting provider notified?: Yes Primary care physician: [facility] Course: Chief Complaint: Right flank pain History of presenting complaint: This is a pleasant 53-year-old patient of Dr. Hand. Chronic stable medical conditions include hypertension, hypothyroid and obesity. History of multiple kidney stones, different procedures done. He follows with Dr. Nolan from urology, He believes he has calcium oxalate stones. On this occasion been having increasing pain on the right flank last 2 days. No nausea vomiting. Has had some chills. He was seen up at the outside hospital. Found to have a stone at the right UV junction. Sent down here. Has infected appearing urine. Started on IV ceftriaxone. Right-sided double-J stent catheter placed. Patient also felt to have chronic kidney disease. TESS inhibitor and Motrin were discontinued-discuss with the patient. IV fluids given. Blood pressures were running high. Medication being adjusted. Creatinine on admission was 1.8 did come down to 1.48. Blood pressure better controlled down to 142/85. Today-. Care was discussed with the patient detail. Medications were discussed. Told not to have NSAIDs and he'll follow up with nephrology. Discussion and discharge planning more than 35 minutes Consultation: Dr. Nolan from urology Physical examination: VITAL SIGNS: 99.2, 88, 18, 142/85, 96% room air GENERAL: Laying in bed, comfortable EYES: Pupils equal. Conjunctiva normal. HEENT: External appearance of nose and ears normal, oral cavity grossly normal. NECK: JVD not raised; masses not palpable. HEART: First and second heart sounds are normal; no edema. LUNGS: Respiratory rate normal; clear to auscultation. ABDOMEN: Soft, right flank tenderness, no guarding or rigidity, liver spleen not palpable, no masses palpable. PSYCH: Alert and oriented x3; mood and affect normal. INVESTIGATIONS, reviewed in the clinical context: Creatinine 1.48 Urine culture negative Previous testing White count 10.8 hemoglobin 13.5 platelets 185 potassium 3.6 creatinine 1.8 UA protein 2+ leukoesterase positive WBC positive WBC close posterior Computed tomography scan of the outside hospital showed right UV junction stone Assessment: -Obstructive ureteral stones at the right UV junction causing some hydronephrosis, POA -Acute pyelonephritis secondary to kidney stone, POA -Chronic kidney disease stage III, patient is on an TESS inhibitor with diuretics and also takes Motrin -Morbid obesity BMI 42.8 -Hypothyroid -Essential hypertension, with chronic kidney disease, with urgency Disposition: Home Patient Condition at Discharge: Stable Plan - Discharge Summary Discharge Rx Participant: No New Discharge Prescriptions: New cloNIDine HCL [Catapres] 0.1 mg PO TID #90 tab Cefuroxime Axetil [Ceftin] 500 mg PO BID #10 tab amLODIPine [Norvasc] 10 mg PO DAILY #30 tab Acetaminophen Tab [Tylenol] 650 mg PO Q6HR PRN tab PRN Reason: Mild Pain Or Fever > 100.5 Continue Levothyroxine Sodium [Synthroid] 75 mcg PO DAILY Cyclobenzaprine [Flexeril] 5 mg PO TID PRN PRN Reason: MUSCLE SPASMS Discontinued Lisinopril-Hctz 20-25 mg [Zestoretic 20-25] 2 tab PO QAM PRN PRN Reason: Blood Pressure Lisinopril-Hctz 20-25 mg [Zestoretic 20-25] 1 tab PO BID PRN PRN Reason: Blood Pressure Ibuprofen 800 mg PO Q6H PRN PRN Reason: Pain Discharge Medication List Cyclobenzaprine [Flexeril] 5 mg PO TID PRN 09/13/19 [History] Levothyroxine Sodium [Synthroid] 75 mcg PO DAILY 09/13/19 [History] Acetaminophen Tab [Tylenol] 650 mg PO Q6HR PRN tab 09/15/19 [Rx] Cefuroxime Axetil [Ceftin] 500 mg PO BID #10 tab 09/15/19 [Rx] amLODIPine [Norvasc] 10 mg PO DAILY #30 tab 09/15/19 [Rx] cloNIDine HCL [Catapres] 0.1 mg PO TID #90 tab 09/15/19 [Rx] Follow up Appointment(s)/Referral(s): Torrey Hand MD [Primary Care Provider] - 09/22/19 11:00 am Raymundo Koroma MD [STAFF PHYSICIAN] - 09/20/19 11:20 am Activity/Diet/Wound Care/Special Instructions: appointment is with DAWSON Rapp at Dr. Hand office. Dr. Hand is out of town.
== END 2019-09-15 16:05 | disposition home or self-care (01) | DRG 660 ==
LOC: EC 19:36 → 4MS4W 20:48
PROVIDERS: ADMIT Hospitalist; ATTEND Hospitalist
PROC: 0T768DZ Dilation of Right Ureter with Intraluminal Device, Via Natural or Artificial Opening Endoscopic (ICD-10-PCS; principal; 2019-09-13 08:45)
DX: N13.2 Hydronephrosis with renal and ureteral calculous obstruction (principal); Z68.41 Body mass index [BMI] 40.0-44.9, adult; E03.9 Hypothyroidism, unspecified; E66.01 Morbid (severe) obesity due to excess calories; I12.9 Hypertensive chronic kidney disease with stage 1 through stage 4 chronic kidney disease, or unspecified chronic kidney disease; N18.3 Chronic kidney disease, stage 3 (moderate); Z79.890 Hormone replacement therapy; Z79.899 Other long term (current) drug therapy; Z83.3 Family history of diabetes mellitus; Z87.442 Personal history of urinary calculi; Z79.891 Long term (current) use of opiate analgesic
CPT/HCPCS: 36415; 71046; 80048; 80053; 81001; 82150; 83690; 83735; 84484; 85025; 87086; 93005; 96361; 96374; 96375; 99285

== ENCOUNTER 2019-09-24 12:39 | Day surgery (SDC) | payer MEDICARE ==
[2019-09-23 08:53] VITALS: BMI 43.7
--- NOTE | 2019-09-23 20:01 | P.GSHP ---
History of Present Illness H&P Date: 09/23/19 53 yo male with a history of stones He presented recently with an obstructing ureteral stone on the right with a urinary tract infection He was given ab and a double j catheter on the right He now comes for right ureteroscopy with laser lithotripsy - Constitutional Constitutional: Denies chills, Denies fever - EENT Eyes: denies blurred vision, denies pain Ears, nose, mouth and throat: Denies headache, Denies sore throat - Cardiovascular Cardiovascular: Denies chest pain, Denies shortness of breath - Respiratory Respiratory: Denies cough, Denies 7 - Gastrointestinal Gastrointestinal: Denies abdominal pain, Denies diarrhea, Denies nausea, Denies vomiting - Genitourinary (Female) Genitourinary: Denies dysuria, Denies hematuria - Genitourinary (Male) Genitourinary: Denies dysuria, Denies hematuria - Musculoskeletal Musculoskeletal: Denies myalgias - Integumentary Integumentary: Denies pruritus, Denies rash - Neurological Neurological: Denies numbness, Denies weakness - Psychiatric Psychiatric: Denies anxiety, Denies depression - Endocrine Endocrine: Denies fatigue, Denies weight change Past Medical History Past Medical History: Hypertension, Renal Disease, Thyroid Disorder Additional Past Medical History / Comment(s): Kidney stones, gout, UTI. History of Any Multi-Drug Resistant Organisms: None Reported Past Surgical History: Adenoidectomy, Ear Surgery, Hernia Repair, Orthopedic Surgery Additional Past Surgical History / Comment(s): lithotripsy,. recent cystoscopy with rt double j tube placement . BILAT LEG SURGERY CHILD AND STRETCHING OF ACHILLES TENDONS X 3 Past Anesthesia/Blood Transfusion Reactions: Motion Sickness Smoking Status: Never smoker - Past Family History Father Family Medical History: Cancer, Diabetes Mellitus Additional Family Medical History / Comment(s): LIVER &COLON CANCER. KIDNEY STONES Mother History Unknown: Yes Family Medical History: No Reported History Additional Family Medical History / Comment(s): MOM IS HEALTHY SHE STATES NO MEDICAL PROBLEMS Medications and Allergies Home Medications Medication Instructions Recorded Confirmed Type Cyclobenzaprine [Flexeril] 5 mg PO TID PRN 09/13/19 09/23/19 History Levothyroxine Sodium [Synthroid] 75 mcg PO DAILY 09/13/19 09/23/19 History Acetaminophen Tab [Tylenol] 650 mg PO Q6HR PRN tab 09/15/19 09/23/19 Rx amLODIPine [Norvasc] 10 mg PO DAILY #30 tab 09/15/19 09/23/19 Rx cloNIDine HCL [Catapres] 0.2 mg PO TID 09/23/19 09/23/19 History Allergies Allergy/AdvReac Type Severity Reaction Status Date / Time sulfamethoxazole Allergy Intermediate Rash/Hives Verified 09/23/19 08:42 [From Bactrim] trimethoprim [From Bactrim] Allergy Intermediate Rash/Hives Verified 09/23/19 08:42 Surgical - Exam - General well developed, well nourished, obese - Eyes PERRL - ENT no hearing loss - Neck trachea midline - Respiratory normal expansion, normal respiratory effort - Cardiovascular Rhythm: regular - Abdomen Abdomen: soft, non tender - Genitourinary normal penis with no external lesions, testicles present - Integumentary no rash, no growths - Neurologic normal coordination, normal sensation - Musculoskeletal normal gait, normal posture - Psychiatric oriented to time, oriented to person, oriented to place, speech is normal, memory intact Results - Imaging Abdominal x-ray: report reviewed, image reviewed CT scan - abdomen: report reviewed, image reviewed CT scan - pelvis: report reviewed, image reviewed Assessment and Plan Assessment: Impression: RIght ureteral calculous with stent Plan: RIght ureteroscopy with laser lithotripsy
[~2019-09-24 12:39] MED LIST: AMPICILLIN 1,000 MG in SODIUM CHLORIDE 0.9% 50 ML IVPB ONE; DEXAMETHASONE SOD PHOSPHATE 10 MG/ML 1 ML VIAL IV ONE; GENTAMICIN 140 MG in SODIUM CHLORIDE 0.9% 100 ML IVPB ONE; LACTATED RINGERS 1,000 ML IV SCH; LIDOCAINE 1% 20 ML VIAL (10MG/ML) FOR IV START INTRADERMA PRN; METOCLOPRAMIDE 5 MG/ML 2 ML VIAL IVP PRN
[2019-09-24] MEDS ORDERED: ePHEDrine SULFATE/0.9% NACL/PF 50 MG/5 ML SYRINGE IV ONE (13:56)
[2019-09-24] MEDS ORDERED: LIDOCAINE 1% INJ 10MG/ML (20 ML MDV) ONE (13:56)
[2019-09-24] MEDS ORDERED: fentaNYL (PF) 50 MCG/ML 2 ML AMP ONE (13:56)
[2019-09-24] MEDS ORDERED: SUCCINYLCHOLINE CHLORIDE 100 MG/5 ML SYR IV ONE (13:56)
[2019-09-24] MEDS ORDERED: PROPOFOL 10 MG/ML 20 ML VIAL IV ONE (13:56)
[2019-09-24] MEDS ORDERED: PHENYLEPHRINE-0.9% NACL SYG 1 MG/10 ML SYRINGE ONE (13:56)
[2019-09-24] MEDS ORDERED: MIDAZOLAM 2 MG/2 ML VIAL ONE (13:56)
--- NOTE | 2019-09-24 15:07 | XR ---
EXAMINATION TYPE: XR KUB DATE OF EXAM: 09/24/2019 COMPARISON: 03/18/2018 INDICATION: Kidney stones TECHNIQUE: Single view abdomen upright view. Images slightly overpenetrated. FINDINGS: There is a catheter present on the right. Adjacent renal stones likely present at the proximal porti on of the right measuring 0.4 cm. Additional calcification within the right mid kidney measuring 0.6 cm is present. There may be some motion artifact present on the second image. There is a normal bowel gas pattern. Psoas margins are normal. No organomegaly is present. IMPRESSION: 1. Right-sided renal stones and right renal pelvis stone adjacent to the proximal double pigtail uret eral stent present on the right.
--- NOTE | 2019-09-24 15:10 | P.OP ---
Date of Procedure: 09/24/19 Preoperative Diagnosis: Right ureteral renal stone Postoperative Diagnosis: Same Procedure(s) Performed: Cystoscopy, removal double-J catheter right, placement of reentry ureteral sheath, flexible ureteroscopy laser lithotripsy, replacement of 6 x 26 double-J catheter Anesthesia: AVI Surgeon: Raymundo Koroma Estimated Blood Loss (ml): 10 Pathology: none sent Condition: stable Disposition: PACU Indications for Procedure: The patient is 53. He has active urolithiasis. He recently had 6-7 mm proximal ureteral stone on the right than lodged in the UPJ. A double-J catheter was placed because of infection. He now comes for stone removal. Description of Procedure: The patient is brought to the operating suite. He is given a successful general endotracheal anesthesia. He's placed lithotomy position with sterile prep and drape. Cystoscopy Foroblique lens and 22-Greenlandic sheath identifies a high riding bladder neck. The bladder is entered. The right double-J catheters identified and pulled the urethral meatus with grasping forceps. Through the double-J catheter no 35 wires passed up into the renal pelvis. Over the wire is then passed a 57-43-Ujllob reentry sheath. The inner sheath is removed. I passed the flexible ureteroscope. 2 stones are seen one about 5 mm and about 8 mm. With the 200 laser probe the stone was fractured into tiny pieces. The fragments are too small to grasp. A look around the collecting system see no remaining stone. I this reintroduced the wire into the renal pelvis. The rigid sheath is removed. The wires then backloaded onto the cystoscope. Over the wires passed a 6 x 26 double-J catheter. This will remain until next week in which case I'll remove in the office. Impression successful ureteroscopy and laser lithotripsy
[2019-09-24 15:16] VITALS: TEMP 97.6
--- NOTE | 2019-09-24 15:41 | FL ---
EXAMINATION TYPE: FL guidance operating room DATE OF EXAM: 09/24/2019 CLINICAL HISTORY: Ureteral stent placement and stone removal. Fluoroscopy documentation. TECHNIQUE: Fluoroscopy. COMPARISON: None. FINDINGS: Fluoroscopic guidance was provided during pain relief procedure performed by Dr. Koroma. A total of 26 seconds of fluoroscopic time was utilized during the procedure and 1 spot image was acqu ired. Images acquired demonstrates a ureteral stent. IMPRESSION: As Above.
[2019-09-24] MEDS: HYDROmorphone 0.5 MG/0.5 ML SYRINGE IVP PRN ×2 (15:43→15:48)
[2019-09-24 16:10] VITALS: PULSE 88
[2019-09-24 16:27] VITALS: BP 135/88; RESP 18
== END 2019-09-24 16:57 | disposition home or self-care (01) ==
LOC: OR 12:39
PROVIDERS: ATTEND Urology
DX: N20.1 Calculus of ureter (principal); I10 Essential (primary) hypertension; E07.9 Disorder of thyroid, unspecified; N28.9 Disorder of kidney and ureter, unspecified; M10.9 Gout, unspecified; K08.89 Other specified disorders of teeth and supporting structures; E66.01 Morbid (severe) obesity due to excess calories; Z68.41 Body mass index [BMI] 40.0-44.9, adult; Z87.442 Personal history of urinary calculi; Z87.440 Personal history of urinary (tract) infections; Z90.89 Acquired absence of other organs; Z98.890 Other specified postprocedural states; Z87.898 Personal history of other specified conditions; Z79.899 Other long term (current) drug therapy; Z79.890 Hormone replacement therapy; Z88.2 Allergy status to sulfonamides; Z96.0 Presence of urogenital implants; Z97.2 Presence of dental prosthetic device (complete) (partial); Z83.3 Family history of diabetes mellitus; Z80.0 Family history of malignant neoplasm of digestive organs; Z84.1 Family history of disorders of kidney and ureter
CPT/HCPCS: 74018; 52356; C2625; C1769; J2250; J2001; J3010; J1580; J0290; J2370; J0330; J2704; J1170

== ENCOUNTER 2020-02-11 17:31 | Emergency (ER) | payer MEDICARE ==
[2020-02-11] MEDS ORDERED: SODIUM CHLORIDE 0.9% 1,000 ML IV STA (18:04)
[2020-02-11] MEDS ORDERED: KETOROLAC 30 MG/ML 1 ML VIAL IVP STA (18:04)
--- NOTE | 2020-02-11 18:26 | ED ---
General Adult HPI - General Chief complaint: Back Pain/Injury Stated complaint: LOWER BACK PAIN Time Seen by Provider: 02/11/20 17:44 Source: patient Mode of arrival: wheelchair Limitations: no limitations - History of Present Illness Initial comments: Patient is a 54-year-old male presenting to emergency Department with complaints of right-sided low back, flank pain that started suddenly today. Patient does see Dr. Koroma for frequent kidney stones, UTIs. Patient states he was diagnosed with a UTI yesterday and was started on Macrobid. Patient comes today he's been having sudden right-sided pain that has been intermittent. He also admits marshall nued dysuria, increase in frequency. Patient denies any falls or trauma to cause this pain. He denies any fever, chills, nausea, vomiting. He did not denies any urinary or bowel incontinence. Denies any numbness and tingling into his legs. He has no other complaints at this time. - Related Data Home Medications Medication Instructions Recorded Confirmed Cyclobenzaprine [Flexeril] 5 mg PO TID PRN 09/13/19 11/17/19 Levothyroxine Sodium [Synthroid] 75 mcg PO DAILY 09/13/19 11/17/19 cloNIDine HCL [Catapres] 0.2 mg PO TID 09/23/19 11/17/19 Metoprolol Tartrate 25 mg PO BID 11/12/19 11/17/19 Previous Rx's Medication Instructions Recorded Acetaminophen Tab [Tylenol] 650 mg PO Q6HR PRN tab 09/15/19 amLODIPine [Norvasc] 10 mg PO DAILY #30 tab 09/15/19 HYDROcodone/APAP 5-325MG [[place] 1 tab PO Q4HR PRN #10 tab 09/24/19 5-325] Ketorolac [Toradol] 10 mg PO Q8HR #10 tab 02/11/20 Allergies Allergy/AdvReac Type Severity Reaction Status Date / Time sulfamethoxazole Allergy Intermediate Rash/Hives Verified 02/11/20 17:43 [From Bactrim] trimethoprim [From Bactrim] Allergy Intermediate Rash/Hives Verified 02/11/20 17:43 ciprofloxacin [From Cipro] Allergy Unknown Verified 02/11/20 17:43 Review of Systems ROS Statement: Those systems with pertinent positive or pertinent negative responses have been documented in the HPI. ROS Other: All systems not noted in ROS Statement are negative. Past Medical History Past Medical History: Hypertension, Renal Disease, Thyroid Disorder Additional Past Medical History / Comment(s): Kidney stones, gout, UTI. History of Any Multi-Drug Resistant Organisms: ESBL Date of last positivie culture/infection: 11/02/19 MDRO Source:: Urine ESBL Past Surgical History: Adenoidectomy, Ear Surgery, Hernia Repair, Orthopedic Surgery Additional Past Surgical History / Comment(s): lithotripsy,. recent cystoscopy with rt double j tube placement . BILAT LEG SURGERY CHILD AND STRETCHING OF ACHILLES TENDONS X 3 Past Anesthesia/Blood Transfusion Reactions: Motion Sickness Past Psychological History: No Psychological Hx Reported Smoking Status: Never smoker Past Alcohol Use History: None Reported Past Drug Use History: None Reported - Past Family History Father Family Medical History: Cancer, Diabetes Mellitus Additional Family Medical History / Comment(s): LIVER &COLON CANCER. KIDNEY STONES Mother History Unknown: Yes Family Medical History: No Reported History Additional Family Medical History / Comment(s): MOM IS HEALTHY SHE STATES NO MEDICAL PROBLEMS General Exam - General Exam Comments Initial Comments: GENERAL: Well-appearing, well-nourished and in no acute distress. HEAD: Atraumatic, normocephalic. EYES: Pupils equal round and reactive to light, extraocular movements intact, sclera anicteric, conjunctiva are normal. ENT: TMs normal, nares patent, oropharynx clear without exudates. Moist mucous membranes. NECK: Normal range of motion, supple without lymphadenopathy or JVD. LUNGS: Breath sounds clear to auscultation bilaterally and equal. No wheezes rales or rhonchi. HEART: Regular rate and rhythm without murmurs, rubs or gallops. ABDOMEN: Mild right sided flank pain, right lower back. Increased pain with percussion. No abdominal pain Soft, normoactive bowel sounds. No guarding, no rebound. No masses appreciated. : Deferred EXTREMITIES: Normal range of motion, no pitting or edema. No clubbing or cyanosis. NEUROLOGICAL: Normal speech, normal gait. PSYCH: Normal mood, normal affect. SKIN: Warm, Dry, normal turgor, no rashes or lesions noted. Limitations: no limitations Course Vital Signs 02/11/20 02/11/20 17:40 20:10 Temperature 98.0 F 98 F Pulse Rate 86 82 Respiratory 20 17 Rate Blood Pressure 174/103 149/103 O2 Sat by Pulse 97 97 Oximetry Medical Decision Making - Medical Decision Making Patient 54-year-old male presenting with right-sided flank pain started suddenly this morning. He does see Dr. Koroma for frequent kidney stones and UTI. Is currently on Macrobid for UTI. Patient is afebrile, lab work is stable. Urine does show signs of a UTI, culture is pending. CT of the abdomen shows a cluster of stones and the dilated right renal pelvis region from size 1.1 cm down to 4 mm. These do not appear to be obstructed at this time. There is some urethral thickening of the right renal pelvis, correlate for cystitis. Patient was given fluids, pain control. He has been sleeping in the exam room during stay. I discussed with patient the findings. Patient will be given 1 g Rocephin in the ER. He is stable for discharge. He will follow up with Dr. Koroma. Patient is in agreement with this plan of care. He will be discharged with Toradol for pain control. Return parameters were discussed with the patient he verbalizes understanding. Case discussed with Dr. Dobson. - Lab Data Result diagrams: 02/11/20 18:25 02/11/20 18:25 Lab Results 02/11/20 02/11/20 02/11/20 Range/Units 18:25 18:25 18:25 WBC 9.8 (3.8-10.6) k/uL RBC 5.08 (4.30-5.90) m/uL Hgb 15.1 (13.0-17.5) gm/dL Hct 45.3 (39.0-53.0) % MCV 89.2 (80.0-100.0) fL MCH 29.7 (25.0-35.0) pg MCHC 33.3 (31.0-37.0) g/dL RDW 15.4 (11.5-15.5) % Plt Count 193 (150-450) k/uL Neutrophils % 82 % Lymphocytes % 11 % Monocytes % 3 % Eosinophils % 3 % Basophils % 0 % Neutrophils # 8.1 H (1.3-7.7) k/uL Lymphocytes # 1.1 (1.0-4.8) k/uL Monocytes # 0.3 (0-1.0) k/uL Eosinophils # 0.3 (0-0.7) k/uL Basophils # 0.0 (0-0.2) k/uL Sodium 138 (137-145) mmol/L Potassium 3.8 (3.5-5.1) mmol/L Chloride 100 (98-107) mmol/L Carbon Dioxide 30 (22-30) mmol/L Anion Gap 8 mmol/L BUN 13 (9-20) mg/dL Creatinine 1.35 H (0.66-1.25) mg/dL Est GFR (CKD-EPI)AfAm 69 (>60 ml/min/1.73 sqM) Est GFR (CKD-EPI)NonAf 60 (>60 ml/min/1.73 sqM) Glucose 118 H (74-99) mg/dL Calcium 8.8 (8.4-10.2) mg/dL Total Bilirubin 0.6 (0.2-1.3) mg/dL AST 33 (17-59) U/L ALT 49 (4-49) U/L Alkaline Phosphatase 68 (38-126) U/L Total Protein 7.4 (6.3-8.2) g/dL Albumin 4.1 (3.5-5.0) g/dL Urine Color Yellow Urine Appearance Cloudy (Clear) Urine pH 5.5 (5.0-8.0) Ur Specific [place] 1.018 (1.001-1.035) Urine Protein 1+ H (Negative) Urine Glucose (UA) Negative (Negative) Urine Ketones Negative (Negative) Urine Blood Negative (Negative) Urine Nitrite Negative (Negative) Urine Bilirubin Negative (Negative) Urine Urobilinogen <2.0 (<2.0) mg/dL Ur Leukocyte Esterase Large H (Negative) Urine RBC 29 H (0-5) /hpf Urine WBC 180 H (0-5) /hpf Urine WBC Clumps Few H (None) /hpf Ur Squamous Epith Cells 1 (0-4) /hpf Urine Bacteria Occasional H (None) /hpf Urine Mucus Occasional H (None) /hpf Disposition Clinical Impression: Right flank pain, UTI (urinary tract infection), Renal calculus, right Disposition: HOME SELF-CARE Condition: Stable Instructions (If sedation given, give patient instructions): Urinary Tract Infection in Men (ED) Additional Instructions: Please return to the Emergency Department if symptoms worsen or any other concerns. Continue with already prescribed Macrobid. Follow up with Dr. Koroma as discussed. Prescriptions: Ketorolac [Toradol] 10 mg PO Q8HR #10 tab Is patient prescribed a controlled substance at d/c from ED?: No Referrals: Torrey Hand MD [Primary Care Provider] - 1-2 days Raymundo Koroma MD [STAFF PHYSICIAN] - 1-2 days
[2020-02-11 18:40] LABS: Basophils % (A) 0 %; Eosinophils # (A) 0.3 k/uL (0-0.7); Eosinophils % (A) 3 %; HCT 45.3 % (39.0-53.0); HGB 15.1 gm/dL (13.0-17.5); Lymphocytes # (A) 1.1 k/uL (1.0-4.8); Lymphocytes % (A) 11 %; MCH 29.7 pg (25.0-35.0); MCHC 33.3 g/dL (31.0-37.0); MCV 89.2 fL (80.0-100.0); Mean Platelet Volume 7.7; Monocytes # (A) 0.3 k/uL (0-1.0); Monocytes % (A) 3 %; Neutrophils # (A) 8.1 k/uL (1.3-7.7); Neutrophils % (A) 82 %; Platelet Count 193 k/uL (150-450); RBC 5.08 m/uL (4.30-5.90); RDW 15.4 % (11.5-15.5); WBC 9.8 k/uL (3.8-10.6)
[2020-02-11 18:47] LABS: Appearance,Urine Cloudy (Clear); Bacteria,Urine Occasional /hpf; Bilirubin,Urine Negative (Negative); Blood,Urine Negative (Negative); Color,Urine Yellow; Glucose,Urine (UA) Negative (Negative); Ketones,Urine Negative (Negative); Leukocyte Esterase,Urine Large (Negative); Mucus,Urine Occasional /hpf; Nitrite,Urine Negative (Negative); PH, Urine 5.5 (5.0-8.0); Protein,Urine 1+ (Negative); RBC,Urine 29 /hpf (0-5); Specific Gravity,Urine 1.018 (1.001-1.035); Squamous Epithelial Cell,Urine 1 /hpf (0-4); Urobilinogen,Urine <2.0 mg/dL (<2.0); WBC,Urine 180 /hpf (0-5)
[2020-02-11 18:56] LABS: Albumin 4.1 g/dL (3.5-5.0); Calcium 8.8 mg/dL (8.4-10.2); Potassium 3.8 mmol/L (3.5-5.1); Total Bilirubin 0.6 mg/dL (0.2-1.3); Total Protein 7.4 g/dL (6.3-8.2)
--- NOTE | 2020-02-11 19:07 | CT ---
EXAMINATION TYPE: CT abdomen pelvis wo con DATE OF EXAM: 02/11/2020 COMPARISON: None HISTORY: . 4 year-old male right flank pain, hx of stones CT DLP: 2034 mGycm. Automated exposure control for dose reduction was used. TECHNIQUE: Contiguous axial scanning of the abdomen and pelvis without IV contrast. Coronal and sagit cam reconstructions performed. FINDINGS: LUNG BASES: No significant abnormality is appreciated. LIVER/GB: Mild hepatomegaly of 18.7 cm with marked low attenuation. Some geographic fatty sparing kye ng the anterior aspect of the liver. Gallbladder surgically absent. PANCREAS: No significant abnormality is seen by noncontrast CT. SPLEEN: No significant abnormality is seen by noncontrast CT. ADRENALS: No significant abnormality is seen by noncontrast CT. KIDNEYS: Right-sided pelviectasis/extrarenal pelvis. There seems to be a reticular thickening here an d for clustered calcifications ranging in size from 1.1 cm down to 4 mm. Additional nonobstructive 5 mm right renal calculus. There is a 1.4 cm hypodensity at the upper pole of the right kidney, too small for accurate CT characterization, probable cyst. 6 mm nonobstructive left lower pole renal calculus. BOWEL: No dilated small bowel, free fluid, or free air. Normal appendix. Mild burden. No pericolonic inflammatory change. LYMPH NODES: No mesenteric or retroperitoneal lymphadenopathy. Prior ventral abdominal wall mesh rep air. PELVIS: Moderate circumferential bladder wall thickening. Some central prostatic calcifications with the prostate gland measuring 4.4 cm wide. No abnormal fluid collection in the pelvis. Prominent exter nal iliac chain lymph nodes measuring up to 9 mm, probably reactive/post inflammatory. BONES: Advanced degenerative disc disease L5-S1. Also, advanced degenerative disc disease visualized lower thoracic spine. IMPRESSION: 1. Cluster of 4 calculi within a dilated right renal pelvis ranging in size from 1.1 cm down to 4 mm . These do not appear to be clearly obstructive at this time but could easily pass into the ureter. 2. However, there is urothelial thickening of the right renal pelvis. Given additional moderate circ umferential bladder wall thickening, correlate for possible cystitis and ascending urinary tract infe ction. 3. Additional nonobstructive renal calculus, one on each side measuring up to 6 cm. 4. Mild hepatomegaly (18.7 cm) with severe hepatic steatosis.
[2020-02-11] MEDS ORDERED: cefTRIAXone IN SWFI 1,000 MG/10 ML SYRINGE IVP STA (19:49)
[2020-02-11 20:10] VITALS: BP 149/103; PULSE 82; RESP 17; TEMP 98
== END 2020-02-11 20:16 | disposition home or self-care (01) ==
LOC: EC 17:31
DX: N20.0 Calculus of kidney (principal); N39.0 Urinary tract infection, site not specified; I10 Essential (primary) hypertension; E07.9 Disorder of thyroid, unspecified; Z79.890 Hormone replacement therapy; Z88.2 Allergy status to sulfonamides; Z88.1 Allergy status to other antibiotic agents; Z79.899 Other long term (current) drug therapy; Z98.890 Other specified postprocedural states
CPT/HCPCS: 99284; 96374; 96375; 96361 ×2; 36415; 80053; 85025; 81001; 87086; 87077; 87186; 74176; J0696; J1885

== ENCOUNTER 2020-02-14 00:02 | Inpatient (IN) | payer MEDICARE ==
[2020-02-14] MEDS ORDERED: PIPERACILLIN-TAZOBACTAM 3.375 GM in SODIUM CHLORIDE 0.9% 100 ML IVPB STA (00:35)
[2020-02-14] MEDS ORDERED: LISINOPRIL 10 MG TAB PO STA (00:55)
[2020-02-14 01:24] LABS: Basophils # (A) 0.1 k/uL (0-0.2); Basophils % (A) 1 %; Eosinophils # (A) 0.4 k/uL (0-0.7); Eosinophils % (A) 5 %; HGB 15.7 gm/dL (13.0-17.5); Lymphocytes # (A) 1.4 k/uL (1.0-4.8); Lymphocytes % (A) 18 %; MCH 29.6 pg (25.0-35.0); MCHC 33.3 g/dL (31.0-37.0); MCV 88.9 fL (80.0-100.0); Mean Platelet Volume 7.7; Monocytes # (A) 0.3 k/uL (0-1.0); Monocytes % (A) 4 %; Neutrophils # (A) 5.5 k/uL (1.3-7.7); Neutrophils % (A) 71 %; Platelet Count 192 k/uL (150-450); RBC 5.29 m/uL (4.30-5.90); RDW 15.3 % (11.5-15.5); WBC 7.7 k/uL (3.8-10.6)
[2020-02-14 01:31] LABS: Appearance,Urine Clear (Clear); Bilirubin,Urine Negative (Negative); Blood,Urine Moderate (Negative); Color,Urine Yellow; Glucose,Urine (UA) Negative (Negative); Ketones,Urine Negative (Negative); Leukocyte Esterase,Urine Large (Negative); Mucus,Urine Occasional /hpf; Nitrite,Urine Negative (Negative); Protein,Urine 1+ (Negative); RBC,Urine 38 /hpf (0-5); Specific Gravity,Urine 1.016 (1.001-1.035); Squamous Epithelial Cell,Urine <1 /hpf (0-4); Urobilinogen,Urine <2.0 mg/dL (<2.0); WBC,Urine 99 /hpf (0-5)
[2020-02-14 01:33] LABS: Albumin 4.4 g/dL (3.5-5.0); Calcium 9.1 mg/dL (8.4-10.2); Potassium 3.3 mmol/L (3.5-5.1); Total Bilirubin 0.6 mg/dL (0.2-1.3); Total Protein 7.9 g/dL (6.3-8.2)
[2020-02-14] MEDS ORDERED: NALOXONE 0.4 MG/ML 1 ML VIAL IV PRN (01:54)
[2020-02-14] MEDS ORDERED: ACETAMINOPHEN TAB 325 MG TAB PO PRN (01:54)
[2020-02-14] MEDS ORDERED: HYDROcodone/APAP 5-325MG 1 EACH TAB PO PRN (01:56)
[2020-02-14] MEDS ORDERED: LABETALOL 5 MG/ML VIAL MDV IVP STA (01:57)
[2020-02-14] MEDS ORDERED: SODIUM CHLORIDE 0.9% 1,000 ML IV SCH (02:00)
--- NOTE | 2020-02-14 02:08 | ED ---
General Adult HPI - General Chief complaint: Recheck/Abnormal Lab/Rx Stated complaint: Abnormal labs Time Seen by Provider: 02/14/20 00:23 Source: patient Mode of arrival: ambulatory Limitations: no limitations - History of Present Illness Initial comments: This patient is a 54-year-old man with history of frequent kidney stones and history of urinary tract infections. The patient comes back to the emergency department tonight after he was called regarding a urine culture that showed resistance to the antibiotic he was taking. The patient's symptoms started last week with right flank and lower abdominal pain as well as frequent urination and some hematuria. He had gone to see Dr. Koroma in the clinic and had been started on Macrobid. He was seen here the following day, February 10 for pain, he had computed tomography scan and also urine culture which subsequently showed resistance to medication. The patient states he is continuing to have frequent irregular urination and a little bit of low abdominal pain. He has not had fever or chills. -: days(s) Location: abdomen Radiation: non-radiation Quality: dull Consistency: intermittent Improves with: none Associated Symptoms: denies other symptoms - Related Data Home Medications Medication Instructions Recorded Confirmed Cyclobenzaprine [Flexeril] 5 mg PO TID PRN 09/13/19 11/17/19 Levothyroxine Sodium [Synthroid] 75 mcg PO DAILY 09/13/19 11/17/19 cloNIDine HCL [Catapres] 0.2 mg PO TID 09/23/19 11/17/19 Metoprolol Tartrate 25 mg PO BID 11/12/19 11/17/19 Previous Rx's Medication Instructions Recorded Acetaminophen Tab [Tylenol] 650 mg PO Q6HR PRN tab 09/15/19 amLODIPine [Norvasc] 10 mg PO DAILY #30 tab 09/15/19 HYDROcodone/APAP 5-325MG [[place] 1 tab PO Q4HR PRN #10 tab 09/24/19 5-325] Ketorolac [Toradol] 10 mg PO Q8HR #10 tab 02/11/20 Allergies Allergy/AdvReac Type Severity Reaction Status Date / Time sulfamethoxazole Allergy Intermediate Rash/Hives Verified 02/11/20 17:43 [From Bactrim] trimethoprim [From Bactrim] Allergy Intermediate Rash/Hives Verified 02/11/20 17:43 ciprofloxacin [From Cipro] Allergy Unknown Verified 02/11/20 17:43 Review of Systems ROS Statement: Those systems with pertinent positive or pertinent negative responses have been documented in the HPI. ROS Other: All systems not noted in ROS Statement are negative. Constitutional: Denies: fever, chills Respiratory: Denies: cough, dyspnea Cardiovascular: Denies: chest pain, palpitations, edema Gastrointestinal: Reports: as per HPI, abdominal pain. Denies: nausea, vomiting, diarrhea, constipation Genitourinary: Reports: dysuria, frequency, hematuria. Denies: discharge, testicular pain, testicular mass Musculoskeletal: Denies: back pain Skin: Denies: rash Neurological: Denies: headache, weakness, numbness Past Medical History Past Medical History: Hypertension, Renal Disease, Thyroid Disorder Additional Past Medical History / Comment(s): Kidney stones, gout, UTI. History of Any Multi-Drug Resistant Organisms: ESBL Date of last positivie culture/infection: 11/02/19 MDRO Source:: Urine ESBL Past Surgical History: Adenoidectomy, Ear Surgery, Hernia Repair, Orthopedic Surgery Additional Past Surgical History / Comment(s): lithotripsy,. recent cystoscopy with rt double j tube placement . BILAT LEG SURGERY CHILD AND S TRETCHING OF ACHILLES TENDONS X 3 Past Anesthesia/Blood Transfusion Reactions: Motion Sickness Past Psychological History: No Psychological Hx Reported Smoking Status: Never smoker Past Alcohol Use History: None Reported Past Drug Use History: None Reported - Past Family History Father Family Medical History: Cancer, Diabetes Mellitus Additional Family Medical History / Comment(s): LIVER &COLON CANCER. KIDNEY STONES Mother History Unknown: Yes Family Medical History: No Reported History Additional Family Medical History / Comment(s): MOM IS HEALTHY SHE STATES NO MEDICAL PROBLEMS General Exam Limitations: no limitations General appearance: alert, in no apparent distress Head exam: Present: atraumatic, normocephalic Eye exam: Present: normal appearance. Absent: scleral icterus, conjunctival injection ENT exam: Present: normal oropharynx Respiratory exam: Present: normal lung sounds bilaterally. Absent: respiratory distress, wheezes, rales, rhonchi, stridor Cardiovascular Exam: Present: regular rate, normal rhythm, normal heart sounds. Absent: systolic murmur, diastolic murmur, rubs, gallop GI/Abdominal exam: Present: soft. Absent: distended, tenderness, guarding, rebound, rigid, mass Extremities exam: Present: normal inspection Back exam: Absent: CVA tenderness (R), CVA tenderness (L) Neurological exam: Present: alert Skin exam: Present: warm, dry, intact, normal color. Absent: rash Course Vital Signs 02/14/20 02/14/20 02/14/20 00:15 01:10 01:45 Temperature 98.3 F Pulse Rate 88 Respiratory 18 Rate Blood Pressure 188/114 204/146 176/140 O2 Sat by Pulse 98 Oximetry Medical Decision Making - Medical Decision Making Patient's 54-year-old man with urinary tract infection who is found to have resistance to multiple medications. Based on the sensitivities it appears he will require IV medication, we will start this with possible PICC line placement to continue as outpatient. - Lab Data Result diagrams: 02/14/20 01:10 02/14/20 01:10 Lab Results 02/14/20 02/14/20 02/14/20 Range/Units 01:00 01:10 01:10 WBC 7.7 (3.8-10.6) k/uL RBC 5.29 (4.30-5.90) m/uL Hgb 15.7 (13.0-17.5) gm/dL Hct 47.0 (39.0-53.0) % MCV 88.9 (80.0-100.0) fL MCH 29.6 (25.0-35.0) pg MCHC 33.3 (31.0-37.0) g/dL RDW 15.3 (11.5-15.5) % Plt Count 192 (150-450) k/uL Neutrophils % 71 % Lymphocytes % 18 % Monocytes % 4 % Eosinophils % 5 % Basophils % 1 % Neutrophils # 5.5 (1.3-7.7) k/uL Lymphocytes # 1.4 (1.0-4.8) k/uL Monocytes # 0.3 (0-1.0) k/uL Eosinophils # 0.4 (0-0.7) k/uL Basophils # 0.1 (0-0.2) k/uL Sodium 138 (137-145) mmol/L Potassium 3.3 L (3.5-5.1) mmol/L Chloride 102 (98-107) mmol/L Carbon Dioxide 27 (22-30) mmol/L Anion Gap 9 mmol/L BUN 12 (9-20) mg/dL Creatinine 1.29 H (0.66-1.25) mg/dL Est GFR (CKD-EPI)AfAm 73 (>60 ml/min/1.73 sqM) Est GFR (CKD-EPI)NonAf 63 (>60 ml/min/1.73 sqM) Glucose 122 H (74-99) mg/dL Calcium 9.1 (8.4-10.2) mg/dL Total Bilirubin 0.6 (0.2-1.3) mg/dL AST 32 (17-59) U/L ALT 47 (4-49) U/L Alkaline Phosphatase 78 (38-126) U/L Total Protein 7.9 (6.3-8.2) g/dL Albumin 4.4 (3.5-5.0) g/dL Urine Color Yellow Urine Appearance Clear (Clear) Urine pH 6.0 (5.0-8.0) Ur Specific [place] 1.016 (1.001-1.035) Urine Protein 1+ H (Negative) Urine Glucose (UA) Negative (Negative) Urine Ketones Negative (Negative) Urine Blood Moderate H (Negative) Urine Nitrite Negative (Negative) Urine Bilirubin Negative (Negative) Urine Urobilinogen <2.0 (<2.0) mg/dL Ur Leukocyte Esterase Large H (Negative) Urine RBC 38 H (0-5) /hpf Urine WBC 99 H (0-5) /hpf Ur Squamous Epith Cells <1 (0-4) /hpf Urine Mucus Occasional H (None) /hpf Disposition Clinical Impression: UTI (urinary tract infection), Hypertension Disposition: ADMITTED IP TO THIS HOSP Condition: Good Referrals: Torrey Hand MD [Primary Care Provider] - 1-2 days
[2020-02-14] MEDS ORDERED: cloNIDine HCL 0.1 MG TAB PO STA (03:22)
[2020-02-14] MEDS ORDERED: LORazepam 2 MG/ML INJ IV STA (03:22)
[2020-02-14] MEDS ORDERED: LEVOTHYROXINE 75 MCG TAB PO SCH (06:30)
[2020-02-14] MEDS: ETODOLAC 300 MG CAPSULE PO SCH ×2 (07:23→17:28)
[2020-02-14] MEDS: cloNIDine HCL 0.2 MG TAB PO SCH ×2 (07:23→17:28)
[2020-02-14] MEDS: LEVOTHYROXINE 137 MCG TAB PO SCH (07:24)
[2020-02-14] MEDS: PIPERACILLIN-TAZOBACTAM 3.375 GM in SODIUM CHLORIDE 0.9% 100 ML IVPB SCH ×2 (07:24→17:30)
[2020-02-14] MEDS: amLODIPine 10 MG TAB PO SCH (07:24)
[2020-02-14] MEDS: METOPROLOL TARTRATE 25 MG TAB PO SCH ×2 (07:24→21:05)
[2020-02-14] MEDS ORDERED: CYCLOBENZAPRINE 5 MG TAB PO PRN (09:00)
--- NOTE | 2020-02-14 11:12 | P.GSCN ---
History of Present Illness Consult date: 02/14/20 History of present illness: This is a 54-year-old gentleman known to me for recurrent kidney stone disease, active urolithiasis as well as recurrent prostatitis. He recently was in the office late last week with symptoms of urine infection and infected looking urine. He grew an E. coli that was moderately resistant to. Apparently he had another urine culture done in the emergency room on 51 that showed the same E. coli but much more resistant. He is brought in the hospital for IV antibiotics and probable PICC line placement. I I cannot explain the difference and cultures 48 hours apart. He is feeling better at this point in time. He had a computed tomography scan that did not show any obstructing stones. He has bilateral small renal calculi. Review of Systems All systems: negative - Constitutional Denies fever, Denies weight loss - EENT Eyes: denies blurred vision Ears, nose, mouth and throat: Denies dysphagia - Cardiovascular Denies chest pain, Denies shortness of breath - Respiratory Denies cough, Denies 7 - Gastrointestinal Reports as per HPI - Genitourinary Denies dysuria, Denies hematuria - Integumentary Denies rash, Denies unusual bruising - Neurological Denies headaches, Denies syncope - Hematologic/Lymphatic Denies easy bleeding, Denies easy bruising Past Medical History Past Medical History: Hypertension, Renal Disease, Thyroid Disorder Additional Past Medical History / Comment(s): Kidney stones, gout, UTI. History of Any Multi-Drug Resistant Organisms: ESBL Year Discovered:: 11/02/19 MDRO Source:: Urine ESBL Past Surgical History: Adenoidectomy, Ear Surgery, Hernia Repair, Orthopedic Surgery Additional Past Surgical History / Comment(s): lithotripsy,. recent cystoscopy with rt double j tube placement . BILAT LEG SURGERY CHILD AND STRETCHING OF ACHILLES TENDONS X 3 Past Anesthesia/Blood Transfusion Reactions: Motion Sickness Past Psychological History: No Psychological Hx Reported Smoking Status: Never smoker Past Alcohol Use History: None Reported Past Drug Use History: None Reported - Past Family History Father Family Medical History: Cancer, Diabetes Mellitus Additional Family Medical History / Comment(s): LIVER &COLON CANCER. KIDNEY STONES Mother History Unknown: Yes Family Medical History: No Reported History Additional Family Medical History / Comment(s): MOM IS HEALTHY SHE STATES NO MEDICAL PROBLEMS Medications and Allergies Home Medications Medication Instructions Recorded Confirmed Type amLODIPine [Norvasc] 10 mg PO DAILY #30 tab 09/15/19 02/14/20 Rx Metoprolol Tartrate 25 mg PO BID 11/12/19 02/14/20 History HYDROcodone/APAP 5-325MG [[place] 1 - 2 tab PO Q4HR PRN 02/14/20 02/14/20 History 5-325] Levothyroxine Sodium 137 mcg PO DAILY 02/14/20 02/14/20 History Lisinopril [Zestril] 10 mg PO HS 02/14/20 02/14/20 History Nitrofurantoin Monohyd/M-Cryst 100 mg PO BID 02/14/20 02/14/20 History [Macrobid] Potassium Citrate [Urocit-K] 15 meq PO BID 02/14/20 02/14/20 History cloNIDine HCL [Catapres] 0.1 mg PO TID 02/14/20 02/14/20 History Allergies Allergy/AdvReac Type Severity Reaction Status Date / Time sulfamethoxazole Allergy Intermediate Rash/Hives Verified 02/14/20 07:54 [From Bactrim] trimethoprim [From Bactrim] Allergy Intermediate Rash/Hives Verified 02/14/20 07:54 ciprofloxacin [From Cipro] Allergy Unknown Verified 02/14/20 07:54 Surgical - Exam Vital Signs Temp Pulse Resp BP Pulse Ox 98.3 F 88 18 188/114 98 02/14/20 00:15 02/14/20 00:15 02/14/20 00:15 02/14/20 00:15 02/14/20 00:15 - General well developed, well nourished, obese - Eyes PERRL - ENT no hearing loss - Respiratory normal expansion, normal respiratory effort - Abdomen Abdomen: non tender - Neurologic normal coordination, normal sensation - Musculoskeletal normal posture - Psychiatric oriented to time, oriented to person, oriented to place, speech is normal, memory intact Results - Labs 02/14/20 01:10 02/14/20 01:10 Abnormal Lab Results - Last 24 Hours (Table) 02/14/20 02/14/20 Range/Units 01:00 01:10 Potassium 3.3 L (3.5-5.1) mmol/L Creatinine 1.29 H (0.66-1.25) mg/dL Glucose 122 H (74-99) mg/dL Urine Protein 1+ H (Negative) Urine Blood Moderate H (Negative) Ur Leukocyte Esterase Large H (Negative) Urine RBC 38 H (0-5) /hpf Urine WBC 99 H (0-5) /hpf Urine Mucus Occasional H (None) /hpf Diabetes panel 02/14/20 Range/Units 01:10 Sodium 138 (137-145) mmol/L Potassium 3.3 L (3.5-5.1) mmol/L Chloride 102 (98-107) mmol/L Carbon Dioxide 27 (22-30) mmol/L BUN 12 (9-20) mg/dL Creatinine 1.29 H (0.66-1.25) mg/dL Glucose 122 H (74-99) mg/dL Calcium 9.1 (8.4-10.2) mg/dL AST 32 (17-59) U/L ALT 47 (4-49) U/L Alkaline Phosphatase 78 (38-126) U/L Total Protein 7.9 (6.3-8.2) g/dL Albumin 4.4 (3.5-5.0) g/dL Calcium panel 02/14/20 Range/Units 01:10 Calcium 9.1 (8.4-10.2) mg/dL Albumin 4.4 (3.5-5.0) g/dL Pituitary panel 02/14/20 Range/Units 01:10 Sodium 138 (137-145) mmol/L Potassium 3.3 L (3.5-5.1) mmol/L Chloride 102 (98-107) mmol/L Carbon Dioxide 27 (22-30) mmol/L BUN 12 (9-20) mg/dL Creatinine 1.29 H (0.66-1.25) mg/dL Glucose 122 H (74-99) mg/dL Calcium 9.1 (8.4-10.2) mg/dL Adrenal panel 02/14/20 Range/Units 01:10 Sodium 138 (137-145) mmol/L Potassium 3.3 L (3.5-5.1) mmol/L Chloride 102 (98-107) mmol/L Carbon Dioxide 27 (22-30) mmol/L BUN 12 (9-20) mg/dL Creatinine 1.29 H (0.66-1.25) mg/dL Glucose 122 H (74-99) mg/dL Calcium 9.1 (8.4-10.2) mg/dL Total Bilirubin 0.6 (0.2-1.3) mg/dL AST 32 (17-59) U/L ALT 47 (4-49) U/L Alkaline Phosphatase 78 (38-126) U/L Total Protein 7.9 (6.3-8.2) g/dL Albumin 4.4 (3.5-5.0) g/dL - Imaging CT scan - abdomen: report reviewed, image reviewed CT scan - pelvis: report reviewed, image reviewed Assessment and Plan Assessment: Impression: Urinary tract infection, E. coli, resistant. Kidney stone disease. Multiple medical issues. Recommendations: Antibiotics as you are given. Nothing further urologic needs to be done at this point in time.
[2020-02-14] MEDS: SODIUM CHLORIDE 0.9% 1,000 ML IV SCH ×2 (12:09→17:30)
--- NOTE | 2020-02-14 17:39 | P.HPIM ---
History of Present Illness H&P Date: 02/14/20 Chief Complaint: Right flank pain History of presenting complaint: This is a pleasant 54-year-old patient of Dr. Hand. Chronic stable medical conditions include hypertension, hypothyroid and obesity, chronic kidney disease. Also multiple kidney stones-different procedures done. He follows with Dr. Koroma from urology. He believes he has calcium oxalate stones. Patient was here in the hospital in September 2019. The stone in the right UV junction. Also it infected appearing urine Court IV ceftriaxone. Right-sided double-J stent catheter was placed. Patient about a week ago was found to be infected appearing urine. Seen by Dr. Nolan from urology. Started on Macrobid 5 days ago. She's been having right flank pain. Urine cultures came back showing organisms that was not sensitive to Macrobid. Denies any fever and chills. Having Flank pain. Started on IV Z osyn in the ER. Flank pain does not radiate to the groin area. No nausea vomiting. Able to tolerate his diet. Review of systems: GEN.:, tired EYES: None HEENT: None NECK: None RESPIRATORY: None CARDIOVASCULAR: None GASTROINTESTINAL: As above GENITOURINARY: None MUSCULOSKELETAL: None LYMPHATICS: None HEMATOLOGICAL: None PSYCHIATRY: None NEUROLOGICAL: None Past medical history: Hypertension, chronic kidney disease, hypothyroid, kidney stones, history of gout Social history: Does not smoke. Alcohol occasionally. 16-year-old son lives with him. 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 Physical examination: VITAL SIGNS:] 97.6, 74, 18, 173/120, 96% on room air GENERAL: BMI 48.5, sitting up, not in distress EYES: Pupils equal. Conjunctiva normal. HEENT: External appearance of nose and ears normal, oral cavity grossly normal. NECK: JVD not raised; masses not palpable. HEART: First and second heart sounds are normal; no edema. LUNGS: Respiratory rate normal; clear to auscultation. ABDOMEN: Soft, slight right flank tenderness, no guarding or rigidity, liver spleen not palpable, no masses palpable. PSYCH: Alert and oriented x3; mood and affect normal. NEUROLOGICAL: Cranial nerves grossly intact; no facial asymmetry, power and sensation grossly intact. LYMPHATICS: No lymph nodes palpable in the axilla and neck INVESTIGATIONS, reviewed in the clinical context: White count 7.7 hemoglobin 15.7 platelets 192 potassium 3.3 creatinine 1.29 Patient's creatinine was 1.48 on September 15 UA positive for blood, leukoesterase, WBC Urine culture from February 10 shows E. coli/ESBL Computed tomography scan of the abdomen and pelvis--reticular thickening with clustered calcifications of variable size, including right renal calculi and left renal calculi, severe hepatic steatosis Assessment: -Acute pyelonephritis secondary to kidney stones recurrent with cultures positive for E. coli/ESBL, having failed outpatient treatment -Bilateral nephrolithiasis -Chronic kidney disease stage III, patient is on an TESS inhibitor with diuretics and also takes Motrin and from kidney stones -Morbid obesity BMI 48.5 -Hypothyroid -Essential hypertension, with chronic kidney disease-accelerated -Nonalcoholic fatty liver disease Plan: Patient be started on IV fluids. Auditory and IV Zosyn. Home medications resumed. We will DC patient's Lodine and Zestril.. Repeat labs in the morning. Past Medical History Past Medical History: Hypertension, Renal Disease, Thyroid Disorder Additional Past Medical History / Comment(s): Kidney stones, gout, UTI. History of Any Multi-Drug Resistant Organisms: ESBL Date of last positivie culture/infection: 11/02/19 MDRO Source:: Urine ESBL Past Surgical History: Adenoidectomy, Ear Surgery, Hernia Repair, Orthopedic Surgery Additional Past Surgical History / Comment(s): lithotripsy,. recent cystoscopy with rt double j tube placement . BILAT LEG SURGERY CHILD AND STRETCHING OF ACHILLES TENDONS X 3 Past Anesthesia/Blood Transfusion Reactions: Motion Sickness Past Psychological History: No Psychological Hx Reported Smoking Status: Never smoker Past Alcohol Use History: None Reported Past Drug Use History: None Reported - Past Family History Father Family Medical History: Cancer, Diabetes Mellitus Additional Family Medical History / Comment(s): LIVER &COLON CANCER. KIDNEY STONES Mother History Unknown: Yes Family Medical History: No Reported History Additional Family Medical History / Comment(s): MOM IS HEALTHY SHE STATES NO MEDICAL PROBLEMS Medications and Allergies Home Medications Medication Instructions Recorded Confirmed Type amLODIPine [Norvasc] 10 mg PO DAILY #30 tab 09/15/19 02/14/20 Rx Metoprolol Tartrate 25 mg PO BID 11/12/19 02/14/20 History HYDROcodone/APAP 5-325MG [[place] 1 - 2 tab PO Q4HR PRN 02/14/20 02/14/20 History 5-325] Levothyroxine Sodium 137 mcg PO DAILY 02/14/20 02/14/20 History Lisinopril [Zestril] 10 mg PO HS 02/14/20 02/14/20 History Nitrofurantoin Monohyd/M-Cryst 100 mg PO BID 02/14/20 02/14/20 History [Macrobid] Potassium Citrate [Urocit-K] 15 meq PO BID 02/14/20 02/14/20 History cloNIDine HCL [Catapres] 0.1 mg PO TID 02/14/20 02/14/20 History Allergies Allergy/AdvReac Type Severity Reaction Status Date / Time sulfamethoxazole Allergy Intermediate Rash/Hives Verified 02/14/20 07:54 [From Bactrim] trimethoprim [From Bactrim] Allergy Intermediate Rash/Hives Verified 02/14/20 07:54 ciprofloxacin [From Cipro] Allergy Unknown Verified 02/14/20 07:54 Physical Exam Vitals: Vital Signs Temp Pulse Pulse Resp BP BP Pulse Ox 02/14/20 07:00 97.9 F 66 20 166/101 95 02/14/20 04:17 97.9 F 69 20 141/96 95 02/14/20 03:48 72 14 168/125 94 L 02/14/20 03:32 176/121 02/14/20 03:26 97.6 F 74 18 173/146 96 02/14/20 03:05 170/120 02/14/20 02:23 87 18 202/149 97 02/14/20 01:45 176/140 02/14/20 01:10 204/146 02/14/20 00:15 98.3 F 88 18 188/114 98 Intake and Output 02/13/20 02/14/20 02/14/20 22:59 06:59 14:59 Intake Total 100 680 Balance 100 680 Intake: Intake, IV Titration 100 Amount Piperacillin-Tazobactam 3 100 .375 gm In Sodium Chloride 0.9% 100 ml @ 25 mls/hr IVPB Q8H [facility] Rx#: [id number] Oral 100 580 Other: Voiding Method Toilet # Voids 2 Weight 149 kg Results CBC & Chem 7: 02/14/20 01:10 02/14/20 01:10 Labs: Abnormal Lab Results - Last 24 Hours (Table) 02/14/20 02/14/20 Range/Units 01:00 01:10 Potassium 3.3 L (3.5-5.1) mmol/L Creatinine 1.29 H (0.66-1.25) mg/dL Glucose 122 H (74-99) mg/dL Urine Protein 1+ H (Negative) Urine Blood Moderate H (Negative) Ur Leukocyte Esterase Large H (Negative) Urine RBC 38 H (0-5) /hpf Urine WBC 99 H (0-5) /hpf Urine Mucus Occasional H (None) /hpf Thrombosis Risk Factor Assmnt - Choose All That Apply Any of the Below Risk Factors Present?: Yes Each Factor Represents 1 point: Age 41-60 years, Obesity (BMI >25) Other Risk Factors: No Other congenital or acquired thrombophilia - If yes, enter type in comment: No Thrombosis Risk Factor Assessment Total Risk Factor Score: 2 Thrombosis Risk Factor Assessment Level: Low Risk
[2020-02-14] MEDS: cloNIDine HCL 0.1 MG TAB PO SCH (21:05)
[2020-02-15] MEDS: PIPERACILLIN-TAZOBACTAM 3.375 GM in SODIUM CHLORIDE 0.9% 100 ML IVPB SCH ×2 (00:54→09:11)
[2020-02-15] MEDS: SODIUM CHLORIDE 0.9% 1,000 ML IV SCH ×3 (04:21→20:17)
[2020-02-15] MEDS: LEVOTHYROXINE 137 MCG TAB PO SCH (05:33)
[2020-02-15] MEDS: METOPROLOL TARTRATE 25 MG TAB PO SCH ×2 (09:12→20:16)
[2020-02-15] MEDS: amLODIPine 10 MG TAB PO SCH (09:12)
[2020-02-15] MEDS: cloNIDine HCL 0.1 MG TAB PO SCH ×3 (09:12→20:15)
[2020-02-15 13:18] LABS: Potassium 4.1 mmol/L (3.5-5.1)
[2020-02-15] MEDS: ERTAPENEM 1 GM in SODIUM CHLORIDE 0.9% 50 ML IVPB SCH (14:33)
--- NOTE | 2020-02-15 21:34 | P.PN ---
Progress Note - Text Progress Note Date: 02/15/20 Chief Complaint: Right flank pain History of presenting complaint: This is a pleasant 54-year-old patient of Dr. Hand. Chronic stable medical conditions include hypertension, hypothyroid and obesity, chronic kidney disease. Also multiple kidney stones-different procedures done. He follows with Dr. Koroma from urology. He believes he has calcium oxalate stones. Patient was here in the hospital in September 2019. The stone in the right UV junction. Also it infected appearing urine Court IV ceftriaxone. Right-sided double-J stent catheter was placed. Patient about a week ago was found to be infected appearing urine. Seen by Dr. Nolan from urology. Started on Macrobid 5 days ago. She's been having right flank pain. Urine cultures came back showing organisms that was not sensitive to Macrobid. Denies any fever and chills. Having Flank pain. Started on IV Zosyn in the ER. Flank pain does not radiate to the groin area. No nausea vomiting. Able to tolerate his diet. Admitted with acute pyelonephritis secondary to kidney stones with cultures positive for E. coli/ESBL. Today-feeling better. Very minimal pain. Eating better. No fever. Getting IV antibiotics and IV fluids. Review of systems: Was done for constitutional, cardiovascular, GI, pulmonary. relevant finding as above Active Medications Acetaminophen (Tylenol Tab) 650 mg PO Q6HR PRN PRN Reason: Mild Pain or Fever > 100.5 Hydrocodone Bitart/Acetaminophen ([place] 5-325) 1 each PO Q4HR PRN PRN Reason: Pain Amlodipine Besylate (Norvasc) 10 mg PO DAILY [facility] Last Admin: 02/15/20 09:12 Dose: 10 mg Documented by: Clonidine (Catapres) 0.1 mg PO TID [facility] Last Admin: 02/15/20 20:15 Dose: 0.1 mg Documented by: Cyclobenzaprine HCl (Flexeril) 5 mg PO TID PRN PRN Reason: MUSCLE SPASMS Sodium Chloride (Saline 0.9%) 1,000 mls @ 130 mls/hr IV .Q7H42M [facility] Last Admin: 02/15/20 20:17 Dose: 130 mls/hr Documented by: Ertapenem 1 gm/ Sodium (Chloride) 50 mls @ 100 mls/hr IVPB DAILY [facility]; Protocol Last Admin: 02/15/20 14:33 Dose: 100 mls/hr Documented by: Levothyroxine Sodium (Synthroid) 137 mcg PO DAILY@0630 [facility] Last Admin: 02/15/20 05:33 Dose: 137 mcg Documented by: Metoprolol Tartrate (Lopressor) 25 mg PO BID [facility] Last Admin: 02/15/20 20:16 Dose: 25 mg Documented by: Naloxone HCl (Narcan) 0.2 mg IV Q2M PRN PRN Reason: Opioid Reversal Physical examination: VITAL SIGNS: 98, 62, 16, 147/98, 97% on room air GENERAL: BMI 48.5, sitting up, comfortable EYES: Pupils equal. Conjunctiva normal. HEENT: External appearance of nose and ears normal, oral cavity grossly normal. NECK: JVD not raised; masses not palpable. HEART: First and second heart sounds are normal; no edema. LUNGS: Respiratory rate normal; clear to auscultation. ABDOMEN: Soft, no right flank tenderness, no guarding or rigidity, liver spleen not palpable, no masses palpable. PSYCH: Alert and oriented x3; mood and affect normal. INVESTIGATIONS, reviewed in the clinical context: Creatinine 1.40 Previous testing White count 7.7 hemoglobin 15.7 platelets 192 potassium 3.3 creatinine 1.29 Patient's creatinine was 1.48 on September 15 UA positive for blood, leukoesterase, WBC Urine culture from February 10 shows E. coli/ESBL Computed tomography scan of the abdomen and pelvis--reticular thickening with clustered calcifications of variable size, including right renal calculi and left renal calculi, severe hepatic steatosis Assessment: -Acute pyelonephritis secondary to kidney stones recurrent with cultures positive for E. coli/ESBL, having failed outpatient treatment -Bilateral nephrolithiasis -Chronic kidney disease stage III, patient is on an TESS inhibitor with diuretics and also takes Motrin and from kidney stones -Morbid obesity BMI 48.5 -Hypothyroid -Essential hypertension, with chronic kidney disease-accelerated -Nonalcoholic fatty liver disease Plan: Patient be started on IV fluids. On IV ertapenem.. Repeat labs in the morning. ID consulted. Discussed with the patient.
--- NOTE | 2020-02-15 23:23 | CONS ---
CONSULTATION DATE OF SERVICE: 02/15/2020 REASON FOR CONSULTATION: ESBL E coli urinary tract infection. HISTORY OF PRESENT ILLNESS: The patient is a 54-year-old male with a past medical history significant for recurrent kidney stones and UTI. The patient apparently started having symptoms of urinary burning and right flank pain last week. The patient describes the pain to the right flank to be dull aching at times sharp almost 5 to 6 out of 10 and no radiation with associated burning of urine. The patient said he went to see his urologist who did a UA which was positive. The patient was started on Macrobid. The patient said he felt better taking Macrobid for about 2 days however the patient started having more pain to the right flank area and subsequently presented to [facility] ER on 02/11/2020. The patient at that time was evaluated. He did have a CT of the abdomen and pelvis which did show right renal pelvis stones but no evidence of any hydronephrosis and the stone may pass easily. The patient did have urine cultures obtained on 02/11/2020, which came back positive the ESBL E coli. Subsequently the patient was advised to come back to the hospital. Cultures on 02/08 done by Urology was also ESBL E coli. The patient presented to the hospital early yesterday morning. The patient was evaluated by the ER physician and was started on Zosyn. I was asked to see the patient today for further management of antibiotic therapy. REVIEW OF SYSTEMS: Positive points have been mentioned in HPI. Rest of systems are negative. PAST MEDICAL HISTORY: Hypertension, recurrent urinary stone, recurrent UTIs, hypothyroidism, and gout. Previous history of ESBL infection. PAST SURGICAL HISTORY: Adenoidectomy, hernia repair, lithotripsy, cystoscopy, right double-J catheter placement, bilateral leg surgery. SOCIAL HISTORY: Denies smoking, drinking or drug use. FAMILY HISTORY: Father with history of diabetes, liver and colon cancer. ALLERGIES: Allergies to BACTRIM and CIPRO. MEDICATIONS: Medications include the patient is currently on Tylenol, [place], Norvasc, Catapres, Flexeril, Zosyn, Synthroid, Lopressor, Narcan, and IV fluid. PHYSICAL EXAMINATION: On examination, blood pressure 135/89 with a pulse of 70, temperature 98.5. He is 97% on room air. General description is a middle-aged male lying in bed in no distress. No tachypnea or accessory muscle of respiration use. HEENT: Examination shows no pallor or scleral icterus. Oral mucous membrane is dry. No pharyngeal erythema or thrush. NECK: Trachea central. No thyromegaly. LUNGS: Unlabored breathing, clear to auscultation anteriorly. No wheeze or crackle. HEART: S1, S2. Regular rate and rhythm. No added sound. ABDOMEN: Soft, no tenderness. No guarding or rigidity. EXTREMITIES: No edema of the feet. SKIN EXAMINATION: No rash or mass palpable. NEUROLOGICAL: Patient is awake, alert, oriented x3. Mood and affect normal. LABS: Hemoglobin is 15.7, white count 7.7, BUN of 16, creatinine 1.40. Electrolytes have been normal. UA did show moderate blood, large leukocyte esterase and 99 WBCs. Marcelo PCR was negative. Urine culture from 02/08 and 02/10 has been ESBL E. Coli. A CT of abdomen and pelvis on 02/10 report as mentioned above. DIAGNOSTIC IMPRESSION AND PLAN: Patient admitted to hospital with complicated urinary tract infection and this patient's urine has been positive for ESBL Escherichia coli on two different occasions in this patient who did have right-sided renal stones with concern for possible complicated urinary tract infection, but patient does not have any signs of sepsis. PLAN: 1. Discontinue Zosyn. 2. Start patient Ertapenem 1 gram daily. 3. We will obtain a Midline for outpatient IV antibiotic therapy. Thank you for this consultation. Will follow this patient along with you. MMODL / IJN: [id number] /
[2020-02-16] MEDS: SODIUM CHLORIDE 0.9% 1,000 ML IV SCH ×2 (03:36→10:14)
[2020-02-16] MEDS: LEVOTHYROXINE 137 MCG TAB PO SCH (05:41)
[2020-02-16 07:22] LABS: Calcium 8.4 mg/dL (8.4-10.2); Potassium 3.7 mmol/L (3.5-5.1)
[2020-02-16 07:44] VITALS: TEMP 97.6
[2020-02-16] MEDS: ERTAPENEM 1 GM in SODIUM CHLORIDE 0.9% 50 ML IVPB SCH (08:32)
[2020-02-16] MEDS: cloNIDine HCL 0.1 MG TAB PO SCH (08:32)
[2020-02-16] MEDS: amLODIPine 10 MG TAB PO SCH (08:32)
[2020-02-16] MEDS: METOPROLOL TARTRATE 25 MG TAB PO SCH (08:33)
[2020-02-16 14:15] VITALS: BP 168/102; PULSE 68; RESP 17
--- NOTE | 2020-02-16 15:25 | PN ---
PROGRESS NOTE DATE OF SERVICE: 02/16/2020 REASON FOR FOLLOWUP: ESBL E coli urinary tract infection. INTERVAL HISTORY: The patient is currently afebrile. The patient is feeling better. The patient's pain in the right leg has improved. No chest pain or cough. No abdominal pain or diarrhea. PHYSICAL EXAMINATION: Blood pressure 136/90 with a pulse of 57, temperature 97.6, 94% on room air. General description is a middle-aged male lying in bed in no distress respiratory system: Unlabored breathing clear to auscultation anteriorly heart S1, S2. Regular rate and rhythm no tenderness. LABS: BUN of 13, creatinine 1.06. Blood culture has been negative. DIAGNOSTIC IMPRESSION AND PLAN: Patient with complicated urinary tract infection and this patient did have a fall finalized with ESBL E coli. The patient on Invanz, received about 2 doses. We will get a midline to continue with Invanz for another 12 days to finish a 2-week course and monitor clinical course closely. MMODL / IJN: [id number] /
--- NOTE | 2020-02-17 21:37 | P.DS ---
Providers Date of admission: 02/14/20 01:56 Expected date of discharge: 02/17/20 Attending physician: Mukesh Kenyon Consults: 02/14/20 01:55 Consult Physician Routine Consulting Provider: Raymundo Koroma Consult Reason/Comments: Patient known to you. Urinary tract infection. Do you want consulting provider notified?: Yes 02/15/20 11:47 Consult Physician Routine Consulting Provider: César Austin Consult Reason/Comments: esbl/e.coli Do you want consulting provider notified?: Yes Primary care physician: [facility] Course: Chief Complaint: Right flank pain History of presenting complaint: This is a pleasant 54-year-old patient of Dr. Hand. Chronic stable medical conditions include hypertension, hypothyroid and obesity, chronic kidney disease. Also multiple kidney stones-different procedures done. He follows with Dr. Koroma from urology. He believes he has calcium oxalate stones. Patient was here in the hospital in September 2019. The stone in the right UV junction. Also it infected appearing urine Court IV ceftriaxone. Right-sided double-J stent catheter was placed. Patient about a week ago was found to be infected appearing urine. Seen by Dr. Nolan from urology. Started on Macrobid 5 days ago. She's been having right flank pain. Urine cultures came back showing organisms that was not sensitive to Macrobid. Denies any fever and chills. Having Flank pain. Started on IV Zosyn in the ER. Flank pain does not radiate to the groin area. No nausea vomiting. Able to tolerate his diet. Admitted with acute pyelonephritis secondary to kidney stones with cultures positive for E. coli/ESBL. Started on IV ertapenem. Today-patient can of midline. Cleared by ID. Discussed with the patient. Feeling well. Because of renal function patient's Zestril was discontinued. Patient also not to take any NSAIDs. Patient get Invanz for another 12 days Discussion discharge planning more than 35 minutes Consultation: Dr. Dougherty from ID Dr. Nolan from urology Physical examination: VITAL SIGNS: 97.6, 68, 17, 160-102, 98% room air GENERAL: Sitting up, comfortable EYES: Pupils equal. Conjunctiva normal. HEENT: External appearance of nose and ears normal, oral cavity grossly normal. NECK: JVD not raised; masses not palpable. HEART: First and second heart sounds are normal; no edema. LUNGS: Respiratory rate normal; clear to auscultation. ABDOMEN: Soft, no right flank tenderness, no guarding or rigidity, liver spleen not palpable, no masses palpable. PSYCH: Alert and oriented x3; mood and affect normal. INVESTIGATIONS, reviewed in the clinical context: Creatinine 1.26 Previous testing White count 7.7 hemoglobin 15.7 platelets 192 potassium 3.3 creatinine 1.29 Patient's creatinine was 1.48 on September 15 UA positive for blood, leukoesterase, WBC Urine culture from February 10 shows E. coli/ESBL Computed tomography scan of the abdomen and pelvis--reticular thickening with clustered calcifications of variable size, including right renal calculi and left renal calculi, severe hepatic steatosis Assessment: -Acute pyelonephritis secondary to kidney stones recurrent with cultures positive for E. coli/ESBL, having failed outpatient treatment -Bilateral nephrolithiasis -Chronic kidney disease stage III, patient is on an TESS inhibitor with diuretics and also takes Motrin and from kidney stones -Morbid obesity BMI 48.5 -Hypothyroid -Essential hypertension, with chronic kidney disease-accelerated -Nonalcoholic fatty liver disease Disposition: Home. Patient Condition at Discharge: Stable Plan - Discharge Summary Discharge Rx Participant: Yes New Discharge Prescriptions: New Ertapenem [INVanz] 1 gm IVPB DAILY vial Acetaminophen Tab [Tylenol] 650 mg PO Q6HR PRN tab PRN Reason: Mild Pain Or Fever > 100.5 Ertapenem [INVanz] 1 gm IVPB Q24H 12 Days bag Continue amLODIPine [Norvasc] 10 mg PO DAILY #30 tab Metoprolol Tartrate 25 mg PO BID Levothyroxine Sodium 137 mcg PO DAILY cloNIDine HCL [Catapres] 0.1 mg PO TID HYDROcodone/APAP 5-325MG [[place] 5-325] 1 - 2 tab PO Q4HR PRN PRN Reason: Pain Discontinued Lisinopril [Zestril] 10 mg PO HS Nitrofurantoin Monohyd/M-Cryst [Macrobid] 100 mg PO BID Potassium Citrate [Urocit-K] 15 meq PO BID Discharge Medication List amLODIPine [Norvasc] 10 mg PO DAILY #30 tab 09/15/19 [Rx] Metoprolol Tartrate 25 mg PO BID 11/12/19 [History] HYDROcodone/APAP 5-325MG [[place] 5-325] 1 - 2 tab PO Q4HR PRN 02/14/20 [History] Levothyroxine Sodium 137 mcg PO DAILY 02/14/20 [History] cloNIDine HCL [Catapres] 0.1 mg PO TID 02/14/20 [History] Acetaminophen Tab [Tylenol] 650 mg PO Q6HR PRN tab 02/16/20 [Rx] Ertapenem [INVanz] 1 gm IVPB DAILY vial 02/16/20 [Rx] Ertapenem [INVanz] 1 gm IVPB Q24H 12 Days bag 02/16/20 [Rx] Follow up Appointment(s)/Referral(s): Torrey Hand MD [Primary Care Provider] - 1-2 days [facility], [NON-STAFF] - [facility], [REFERRING] - César Austin MD [STAFF PHYSICIAN] - 2 Weeks Patient Instructions/Handouts: Urinary Tract Infection in Men (DC), Extended Spectrum Beta Lactamase (GEN) Activity/Diet/Wound Care/Special Instructions: no NSAIDS
== END 2020-02-16 15:18 | disposition home health service (06) | DRG 690 ==
LOC: EC 00:02 → 4SSUR 01:56
PROVIDERS: ADMIT Hospitalist; ATTEND Hospitalist
PROC: 05HD33Z Insertion of Infusion Device into Right Cephalic Vein, Percutaneous Approach (ICD-10-PCS; principal; 2020-02-16 10:00)
DX: N10 Acute pyelonephritis (principal); Z16.12 Extended spectrum beta lactamase (ESBL) resistance; Z68.42 Body mass index [BMI] 45.0-49.9, adult; B96.20 Unspecified Escherichia coli [E. coli] as the cause of diseases classified elsewhere; E03.9 Hypothyroidism, unspecified; E66.01 Morbid (severe) obesity due to excess calories; I12.9 Hypertensive chronic kidney disease with stage 1 through stage 4 chronic kidney disease, or unspecified chronic kidney disease; K76.0 Fatty (change of) liver, not elsewhere classified; N18.3 Chronic kidney disease, stage 3 (moderate); N20.0 Calculus of kidney; N41.9 Inflammatory disease of prostate, unspecified; Z79.890 Hormone replacement therapy; Z79.899 Other long term (current) drug therapy; Z80.0 Family history of malignant neoplasm of digestive organs; Z83.3 Family history of diabetes mellitus; Z86.19 Personal history of other infectious and parasitic diseases; Z87.440 Personal history of urinary (tract) infections; Z87.442 Personal history of urinary calculi; Z88.1 Allergy status to other antibiotic agents; Z88.2 Allergy status to sulfonamides; Z11.59 Encounter for screening for other viral diseases
CPT/HCPCS: 36410; 36415; 74176; 76937; 80048; 80053; 81001; 85025; 87040; 87077; 87086; 87186; 87635; 96361; 96365; 96374; 96375; 99284

== ENCOUNTER → 2020-08-03 | Outpatient (CLI) | payer MEDICARE ==
--- NOTE | 2020-08-03 16:02 | CONS ---
CONSULTATION DATE OF SERVICE: 08/03/2020 This is a 54-year-old gentleman who has been evaluated in the sleep center for possible obstructive sleep apnea-hypopnea syndrome. HISTORY OF PRESENT ILLNESS/SLEEP-WAKE EVALUATION: Patient's usual sleep schedule is from 10 p.m. until about 7 a.m. He does have problems with falling asleep. He has a TV set in the bedroom. He sleeps in different positions. He snores and wakes up from sleep 4 times with nocturia. During the day he feels sleepy. He may take 2 naps in the morning and afternoon. [place] Sleepiness Scale is significantly increased to 15. He has problems with concentration and irritability. No history of hypnagogic hallucinations, sleep paralysis or cataplexy. PAST MEDICAL HISTORY: Positive for hypertension, gout, hypothyroidism, multiple kidney stones with multiple episodes of lithotripsy on both sides. PAST SURGICAL HISTORY: Cholecystectomy, umbilical hernia, leg surgeries x3. MEDICATIONS: 1. Catapres 2 mg twice a day. 2. Allopurinol 10 mg once a day. 3. Synthroid 175 mcg once a day. 4. Metoprolol 10 mg once a day. 5. Potassium citrate ER 15 mEq twice a day. 6. Amlodipine 10 mg once a day. SOCIAL HISTORY: Negative for smoking or using alcohol. FAMILY HISTORY: Positive for hypertension, snoring, cancer, thyroid problems. REVIEW OF SYSTEMS: Multiple awakenings from sleep, sleepiness during the day. PHYSICAL EXAMINATION: GENERAL: A pleasant gentleman without distress. VITAL SIGNS: BP on the right hand 216/132, on the left 206/122. Respiratory rate 16, height 5 feet 10 inches, weight 328, body mass index 47.0. Oxygen saturation at room air 98%. HEENT: PERRLA, EOMI. Evaluation of oropharynx showed tongue protrudes midline. Wide pillars. Big uvula. Soft palate: Mallampati II to III. NECK: Supple. No JVD. Thyroid is not palpable. Wide neck measuring 19-1/2 inches in circumference. LUNGS: Clear to percussion and to auscultation. Good air exchange. No wheezing or rhonchi. HEART: S1, S2 regular. No murmurs, gallops or rubs. ABDOMEN: Obese. EXTREMITIES: No clubbing or cyanosis. RESEARCH AFFILIATE: Awake, alert, and oriented X3. Cranial nerves 2 to 7 intact. There is no fasciculation or atrophy. noted. No focal deficits observed. IMPRESSION: 1. Snoring, multiple awakenings from sleep with nocturia, small oropharyngeal air space, big neck, sleepiness, [place] Sleepiness Scale 15; obstructive sleep apnea- hypopnea syndrome. 2. Morbid obesity. BMI 47.0. 3. Hypertension. High blood pressure in the office. The patient forgot to take his medications today in the morning. No chest pain, headache or shortness of breath. 4. Hypothyroidism. 5. Gout. 6. History of multiple kidney stones, treated with lithotripsy. 7. Status post cholecystectomy. 8. Umbilical hernia. 9. Status post leg surgery multiple times. PLAN: 1. The patient should take his medications as soon as possible. 2. If any symptoms of headache, shortness of breath or chest pain, patient is recommended to go to emergency room. 3. Polysomnography for evaluation of patient's breathing during sleep. 4. CPAP/BiPAP titration if sleep study confirms obstructive sleep apnea-hypopnea syndrome. 5. Preferable position during sleep on the side. 6. No driving if patient feels any sleepiness. 7. I will see patient for follow up visit to explain results of testing and following plan. 8. Consider using hydrochlorothiazide, which may decrease concentration of calcium in the urine in some patients and could be useful for prevention of kidney stones. Thank you very much for referring this patient for consultation. Sincerely, Jordi Campa MD, PhD, FAASM Diplomat of [employer] Carbonation Tester of [facility] [place] MMODL / ESTELLAN: [id number] /
== END | disposition home or self-care (01) ==
LOC: SLEEP 14:44
PROVIDERS: ATTEND Internal Medicine
DX: G47.33 Obstructive sleep apnea (adult) (pediatric) (principal); E66.01 Morbid (severe) obesity due to excess calories; Z68.42 Body mass index [BMI] 45.0-49.9, adult; I10 Essential (primary) hypertension; E03.9 Hypothyroidism, unspecified; M10.9 Gout, unspecified; K42.9 Umbilical hernia without obstruction or gangrene; Z90.49 Acquired absence of other specified parts of digestive tract; Z87.448 Personal history of other diseases of urinary system; Z98.890 Other specified postprocedural states; Z79.899 Other long term (current) drug therapy; Z87.442 Personal history of urinary calculi
CPT/HCPCS: 99211

== ENCOUNTER → 2020-12-06 | Outpatient (CLI) | payer MEDICARE, OTHER ==
--- NOTE | 2020-12-06 17:39 | SFUN ---
SLEEP CENTER FOLLOW UP NOTE DATE OF SERVICE: 12/06/2020 This is a 55-year-old gentleman who has been followed in Sleep Center for treatment of obstructive sleep apnea-hypopnea syndrome. Recently the patient had sleep studies, and I discussed with him results of sleep studies in detail. He has extremely severe sleep apnea with apnea-hypopnea index of 93 and significant oxygen desaturation, which was normalized with CPAP. Today is his first visit while he is on treatment with CPAP. He feels better with the CPAP. He sleeps better and feels better during the day. [place] Sleepiness Scale today is 12. I checked his CPAP unit. Usage is 27/30 nights for more than 4 hours with average usage 5.5 hours per night. CPAP pressure is 13 cm of water. Apnea-hypopnea index is only 2.1, which is totally normal, but it looks like possibly the patient has some leak from his mask. MEDICATIONS: Catapres, allopurinol, Synthroid, metoprolol, amlodipine. PHYSICAL EXAMINATION: GENERAL: A pleasant patient in no distress. VITAL SIGNS: BP 178/110, HR 89, RR 18, weight 342 pounds, temperature 96.8, oxygen saturation at room air 97%. HEENT: PERRLA, EOMI. Evaluation of oropharynx showed tongue protrudes midline. Low position of soft palate. NECK: Supple. No JVD. Thyroid is not palpable. LUNGS: Clear to percussion and to auscultation. Good air exchange. No wheezing or rhonchi. HEART: S1, S2 regular. No murmurs, gallops or rubs. ABDOMEN: Obese. EXTREMITIES: No clubbing or cyanosis. GOLD PROSPECTOR: Awake, alert, and oriented X3. Cranial nerves 2 to 7 intact. There is no fasciculation or atrophy. noted. No focal deficits observed. IMPRESSION: 1. Extremely severe obstructive sleep apnea-hypopnea syndrome; apnea-hypopnea index 93, under full control with CPAP. The patient demonstrated good compliance with treatment, benefitting from treatment. 2. Obesity. 3. Hypertension. 4. Hypothyroidism. 5. Gout. 6. History of kidney stone. 7. Status post cholecystectomy. 8. Status post umbilical hernia. 9. Status post several leg surgeries. PLAN: 1. Patient will continue to use PAP equipment every night for the whole night. 2. Sleep hygiene with regular time in bed for at least 7-1/2 to 8 hours. 3. Precautions related to driving. No driving if feeling sleepiness. 4. I will maintain all necessary prescription for PAP supplies including mask, tube, filters. 5. Watching weight. 6. No driving if feeling sleepiness. 7. Follow-up visit in 6 months or earlier if patient has any problems. Thank you very much for allowing me to participate in the management of your patient. Sincerely, Jordi Campa MD, PhD, FAASM Diplomat of [place] [employer] Computer Systems Security Analyst of [facility] [place] MMODL / IJN: [id number] /
== END | disposition home or self-care (01) ==
LOC: SLEEP 09:55
PROVIDERS: ATTEND Internal Medicine
DX: G47.33 Obstructive sleep apnea (adult) (pediatric) (principal); I10 Essential (primary) hypertension; E03.9 Hypothyroidism, unspecified; E66.9 Obesity, unspecified; Z87.442 Personal history of urinary calculi; M10.9 Gout, unspecified; Z90.49 Acquired absence of other specified parts of digestive tract; Z98.890 Other specified postprocedural states; Z79.899 Other long term (current) drug therapy; Z99.89 Dependence on other enabling machines and devices

== ENCOUNTER 2021-04-29 06:26 | Inpatient (IN) | payer MEDICARE, OTHER ==
[2021-04-29] MEDS ORDERED: ONDANSETRON 4 MG/2 ML VIAL IVP STA (06:45)
[2021-04-29] MEDS ORDERED: SODIUM CHLORIDE 0.9% 500 ML 500 ML IV STA (06:45)
[2021-04-29] MEDS ORDERED: HYDROmorphone 1 MG/ML 1 ML SYRINGE IVP STA (06:45)
[2021-04-29] MEDS ORDERED: SODIUM CHLORIDE 0.9% 1,000 ML IV STA (06:45)
[2021-04-29] MEDS ORDERED: KETOROLAC 15 MG/ML 1 ML VIAL IVP STA (06:45)
--- NOTE | 2021-04-29 06:59 | ED ---
General Adult HPI - General Chief complaint: Urogenital Stated complaint: Abd Pain Time Seen by Provider: 04/29/21 06:40 Source: patient, RN notes reviewed Mode of arrival: wheelchair Limitations: no limitations - History of Present Illness Initial comments: 55-year-old male presents to the emergency Department with chief complaint of right flank pain. Patient states started last night is worsen. Patient has a history kidney stones states this is exactly same. Patient has slight nausea states that he took some [place] with no relief of symptoms. That he dysuria hematuria no diarrhea no constipation. Patient does see Dr. Koroma currently. Patient denies any fevers or chills no chest pain no other complaints. - Related Data Home Medications Medication Instructions Recorded Confirmed Metoprolol Tartrate 25 mg PO BID 11/12/19 02/14/20 HYDROcodone/APAP 5-325MG [[place] 1 - 2 tab PO Q4HR PRN 02/14/20 02/14/20 5-325] Levothyroxine Sodium 137 mcg PO DAILY 02/14/20 02/14/20 cloNIDine HCL [Catapres] 0.1 mg PO TID 02/14/20 02/14/20 Previous Rx's Medication Instructions Recorded amLODIPine [Norvasc] 10 mg PO DAILY #30 tab 09/15/19 Acetaminophen Tab [Tylenol] 650 mg PO Q6HR PRN tab 02/16/20 Ertapenem [INVanz] 1 gm IVPB DAILY vial 02/16/20 Ertapenem [INVanz] 1 gm IVPB Q24H 12 Days bag 02/16/20 Allergies Allergy/AdvReac Type Severity Reaction Status Date / Time sulfamethoxazole Allergy Intermediate Rash/Hives Verified 04/29/21 06:37 [From Bactrim] trimethoprim [From Bactrim] Allergy Intermediate Rash/Hives Verified 04/29/21 06:37 ciprofloxacin [From Cipro] Allergy Unknown Verified 04/29/21 06:37 Review of Systems ROS Statement: Those systems with pertinent positive or pertinent negative responses have been documented in the HPI. ROS Other: All systems not noted in ROS Statement are negative. Past Medical History Past Medical History: Hypertension, Renal Disease, Thyroid Disorder Additional Past Medical History / Comment(s): Kidney stones, gout, UTI. History of Any Multi-Drug Resistant Organisms: ESBL Date of last positivie culture/infection: 02/11/20 MDRO Source:: Urine ESBL Past Surgical History: Adenoidectomy, Ear Surgery, Hernia Repair, Orthopedic Surgery Additional Past Surgical History / Comment(s): lithotripsy,. recent cystoscopy with rt double j tube placement . BILAT LEG SURGERY CHILD AND STRETCHING OF ACHILLES TENDONS X 3 Past Anesthesia/Blood Transfusion Reactions: Motion Sickness Past Psychological History: No Psychological Hx Reported Smoking Status: Never smoker Past Alcohol Use History: None Reported Past Drug Use History: None Reported - Past Family History Father Family Medical History: Cancer, Diabetes Mellitus Additional Family Medical History / Comment(s): LIVER &COLON CANCER. KIDNEY STONES Mother History Unknown: Yes Family Medical History: No Reported History Additional Family Medical History / Comment(s): MOM IS HEALTHY SHE STATES NO MEDICAL PROBLEMS General Exam Limitations: no limitations General appearance: alert, in no apparent distress Head exam: Present: atraumatic, normocephalic, normal inspection Neck exam: Present: normal inspection, full ROM. Absent: tenderness, meningism us, lymphadenopathy Respiratory exam: Present: normal lung sounds bilaterally. Absent: respiratory distress, wheezes, rales, rhonchi, stridor Cardiovascular Exam: Present: regular rate, normal rhythm, normal heart sounds. Absent: systolic murmur, diastolic murmur, rubs, gallop, clicks GI/Abdominal exam: Present: soft, tenderness, normal bowel sounds. Absent: distended, guarding, rebound, rigid Back exam: Present: CVA tenderness (R). Absent: CVA tenderness (L) Neurological exam: Present: alert Skin exam: Present: warm, dry, intact, normal color. Absent: rash Course Vital Signs 04/29/21 06:33 Temperature 98.1 F Pulse Rate 102 H Respiratory 18 Rate Blood Pressure 142/87 O2 Sat by Pulse 94 L Oximetry Medical Decision Making - Medical Decision Making 55-year-old presented for flank pain. Patient's found to have UTI, probable pyelonephritis. Patient had recurrent infections which have been ESBL, multidrug resistant. Patient CT did reveal evidence of ascites with no clear reason, no evidence of stone within the ureter. Patient also has acute kidney injury limited for IV fluid hydration, antibiotic therapy. - Lab Data Result diagrams: 04/29/21 07:01 04/29/21 07:01 Lab Results 04/29/21 04/29/21 04/29/21 Range/Units 07:01 07:01 07:01 WBC 12.5 H (3.8-10.6) k/uL RBC 5.62 (4.30-5.90) m/uL Hgb 16.9 (13.0-17.5) gm/dL Hct 49.7 (39.0-53.0) % MCV 88.5 (80.0-100.0) fL MCH 30.1 (25.0-35.0) pg MCHC 34.0 (31.0-37.0) g/dL RDW 15.0 (11.5-15.5) % Plt Count 228 (150-450) k/uL MPV 7.8 Neutrophils % 84 % Lymphocytes % 12 % Monocytes % 3 % Eosinophils % 0 % Basophils % 0 % Neutrophils # 10.5 H (1.3-7.7) k/uL Lymphocytes # 1.4 (1.0-4.8) k/uL Monocytes # 0.4 (0-1.0) k/uL Eosinophils # 0.0 (0-0.7) k/uL Basophils # 0.0 (0-0.2) k/uL Sodium 139 (137-145) mmol/L Potassium 4.0 (3.5-5.1) mmol/L Chloride 103 (98-107) mmol/L Carbon Dioxide 26 (22-30) mmol/L Anion Gap 10 mmol/L BUN 19 (9-20) mg/dL Creatinine 2.05 H (0.66-1.25) mg/dL Est GFR (CKD-EPI)AfAm 41 (>60 ml/min/1.73 sqM) Est GFR (CKD-EPI)NonAf 36 (>60 ml/min/1.73 sqM) Glucose 133 H (74-99) mg/dL Calcium 9.1 (8.4-10.2) mg/dL Total Bilirubin 0.8 (0.2-1.3) mg/dL AST 24 (17-59) U/L ALT 31 (4-49) U/L Alkaline Phosphatase 73 (38-126) U/L Total Protein 7.1 (6.3-8.2) g/dL Albumin 4.0 (3.5-5.0) g/dL Lipase 75 (23-300) U/L Urine Color Yellow Urine Appearance Turbid (Clear) Urine pH 5.5 (5.0-8.0) Ur Specific [place] 1.020 (1.001-1.035) Urine Protein 2+ H (Negative) Urine Glucose (UA) Negative (Negative) Urine Ketones Trace H (Negative) Urine Blood Small H (Negative) Urine Nitrite Negative (Negative) Urine Bilirubin Negative (Negative) Urine Urobilinogen <2.0 (<2.0) mg/dL Ur Leukocyte Esterase Large H (Negative) Urine RBC 58 H (0-5) /hpf Urine WBC >182 H (0-5) /hpf Urine WBC Clumps Many H (None) /hpf Ur Squamous Epith Cells 8 H (0-4) /hpf Urine Bacteria Many H (None) /hpf Urine Mucus Many H (None) /hpf Disposition Clinical Impression: Pyelonephritis, UTI (urinary tract infection), Acute kidney injury, Ascites Disposition: ADMITTED IP TO THIS [facility] Condition: Fair Referrals: Torrey Hand MD [Primary Care Provider] - 1-2 days
[2021-04-29 07:17] LABS: Basophils % (A) 0 %; Eosinophils % (A) 0 %; HCT 49.7 % (39.0-53.0); HGB 16.9 gm/dL (13.0-17.5); Lymphocytes # (A) 1.4 k/uL (1.0-4.8); Lymphocytes % (A) 12 %; MCH 30.1 pg (25.0-35.0); MCV 88.5 fL (80.0-100.0); Mean Platelet Volume 7.8; Monocytes # (A) 0.4 k/uL (0-1.0); Monocytes % (A) 3 %; Neutrophils # (A) 10.5 k/uL (1.3-7.7); Neutrophils % (A) 84 %; Platelet Count 228 k/uL (150-450); RBC 5.62 m/uL (4.30-5.90); WBC 12.5 k/uL (3.8-10.6)
[2021-04-29 07:27] LABS: Calcium 9.1 mg/dL (8.4-10.2); Total Bilirubin 0.8 mg/dL (0.2-1.3); Total Protein 7.1 g/dL (6.3-8.2)
[2021-04-29 07:37] LABS: Appearance,Urine Turbid (Clear); Bacteria,Urine Many /hpf; Bilirubin,Urine Negative (Negative); Blood,Urine Small (Negative); Color,Urine Yellow; Glucose,Urine (UA) Negative (Negative); Ketones,Urine Trace (Negative); Leukocyte Esterase,Urine Large (Negative); Mucus,Urine Many /hpf; Nitrite,Urine Negative (Negative); PH, Urine 5.5 (5.0-8.0); Protein,Urine 2+ (Negative); RBC,Urine 58 /hpf (0-5); Squamous Epithelial Cell,Urine 8 /hpf (0-4); Urobilinogen,Urine <2.0 mg/dL (<2.0); WBC,Urine >182 /hpf (0-5)
--- NOTE | 2021-04-29 08:01 | XR ---
EXAMINATION TYPE: XR KUB DATE OF EXAM: 04/29/2021 COMPARISON: 09/24/2019 HISTORY: History of renal stones TECHNIQUE: AP abdomen FINDINGS: No free air is evident. Nonspecific bowel gas is present. Psoas margins are not well visual ized. No mass effect is evident. There is a 1.4 cm long calcification which may lie within the proximal right ureter at the ureteropel brina junction. A 1.6 cm long calcification is within the inferior pole right kidney. IMPRESSION: 1. Enlarged calcifications from comparison in the inferior pole right kidney and suspected at the [facility] ureteropelvic junction
--- NOTE | 2021-04-29 08:56 | CT ---
EXAMINATION TYPE: CT abdomen pelvis wo con DATE OF EXAM: 04/29/2021 COMPARISON: 02/11/2020 INDICATION: Rt flank pain DLP: 2426 mGycm, Automated exposure control for dose reduction was used. CONTRAST: 0 mL of Isovue 300. Study performed without Oral Contrast TECHNIQUE: Axial images were obtained from above the diaphragm to the pubic rami in the axial plane a t 5 mm thick sections. Reconstructed images are reviewed on the computer in the coronal plane. FINDINGS: Limited CT sections are obtained the lung bases. The lung bases are essentially clear. Mild atelecta sis at the right lung base medially present. Minimal coronary artery calcification is noted. CT ABDOMEN: Liver: There is moderate fatty infiltration through the liver. Some minimal ascites adjacent. Spleen: Normal. Ascites is adjacent to the spleen. Pancreas: Normal Adrenal glands: The adrenal glands are normal. Gallbladder: Surgically absent Kidneys: No masses are evident. No hydronephrosis is present. No cysts are present. 0.8 cm calcifi cations are within the mid right kidney. There is a 1.3 x 0.7 cm calcification in the right renal pel vis. Obstruction does not appear to be present. There is a 0.7 mm calcification inferior pole left ki dney. Aorta: Vascular calcification is within the aorta. Inferior vena cava: Normal. CT PELVIS: Free fluid is within the pelvis. There is prominent small bowel loops within the midabdomen. Note the zone of transition is identified . Colon is decompressed and contains air. The studies without oral contrast limiting bowel evaluation . Appendix: Normal as visualized. Urinary bladder: Decompressed limiting evaluation. Genitourinary structures: Prostate is prominent and contains calcification. Osseous structures: No suspicious lytic or sclerotic lesions. Degenerative disc changes are present L 5-S1. IMPRESSIONS: 1. Ascites within the abdomen and pelvis. 2. Nonobstructing bilateral renal stones. The renal stone without obstruction is in the dependent por tion of the right renal pelvis.
[2021-04-29] MEDS ORDERED: PIPERACILLIN-TAZOBACTAM 3.375 GM in SODIUM CHLORIDE 0.9% 100 ML IVPB STA (09:14)
[2021-04-29] MEDS ORDERED: HYDROcodone/APAP 5-325MG 1 EACH TAB PO PRN (09:16)
[2021-04-29] MEDS ORDERED: HYDROmorphone 0.5 MG/0.5 ML SYRINGE IVP PRN (09:16)
[2021-04-29] MEDS ORDERED: NALOXONE 0.4 MG/ML 1 ML VIAL IV PRN (09:16)
[2021-04-29] MEDS ORDERED: ONDANSETRON 4 MG/2 ML VIAL IVP PRN (09:16)
[2021-04-29] MEDS ORDERED: HYDROmorphone 1 MG/ML 1 ML SYRINGE IVP PRN (09:16)
[2021-04-29] MEDS: SODIUM CHLORIDE 0.9% 1,000 ML IV SCH ×2 (09:22→20:48)
[2021-04-29] MEDS ORDERED: CYCLOBENZAPRINE 10 MG TAB PO PRN (11:24)
[2021-04-29] MEDS ORDERED: amLODIPine 10 MG TAB PO SCH (11:30)
[2021-04-29] MEDS: LEVOTHYROXINE 75 MCG TAB PO SCH (12:39)
[2021-04-29] MEDS: cloNIDine HCL 0.2 MG TAB PO SCH ×3 (12:46→20:49)
[2021-04-29] MEDS: allopurinoL 100 MG TAB PO SCH (12:46)
[2021-04-29] MEDS: METOPROLOL TARTRATE 50 MG TAB PO SCH ×2 (12:47→20:48)
--- NOTE | 2021-04-29 16:59 | P.HPIM ---
History of Present Illness H&P Date: 04/29/21 Chief Complaint: Right lower abdominal pain Chief Complaint: Right flank pain History of presenting complaint: This is a pleasant 55-year-old patient of Dr. Hand. Chronic stable medical conditions include hypertension, hypothyroid and obesity, chronic kidney disease. Also multiple kidney stones-different procedures done. He follows with Dr. Koroma from urology. He believes he has calcium oxalate stones. Patient now presents with right lower quadrant pain starting 2 days ago. Denies any fever and chills. Has had some nausea and vomiting. Patient has urinary urgency. Very slight dysuria. Feels tired and rundown. Urine is orange color ed. Urology consulted. Review of systems: GEN.:, tired EYES: None HEENT: None NECK: None RESPIRATORY: None CARDIOVASCULAR: None GASTROINTESTINAL: Nausea vomiting GENITOURINARY: As above MUSCULOSKELETAL: None LYMPHATICS: None HEMATOLOGICAL: None PSYCHIATRY: None NEUROLOGICAL: None Past medical history: Hypertension, chronic kidney disease, hypothyroid, kidney stones, history of gout Social history: Does not smoke. Alcohol occasionally. 17-year-old son lives with him. on disability. Physical examination: VITAL SIGNS: 98.1, 1 or 2, 18, 142/87, 94% room air GENERAL: BMI 45.8, laying in bed, tired EYES: Pupils equal. Conjunctiva normal. HEENT: External appearance of nose and ears normal, oral cavity grossly normal. NECK: JVD not raised; masses not palpable. HEART: First and second heart sounds are normal; no edema. LUNGS: Respiratory rate normal; clear to auscultation. ABDOMEN: Soft, right lower quadrant tenderness, no guarding rigidity, no guarding or rigidity, liver spleen not palpable, no masses palpable. PSYCH: Alert and oriented x3; mood and affect tired NEUROLOGICAL: Cranial nerves grossly intact; no facial asymmetry, power and sensation grossly intact. LYMPHATICS: No lymph nodes palpable in the axilla and neck INVESTIGATIONS, reviewed in the clinical context: WBC 12.5 hemoglobin 16.9 platelets 228 potassium 4 creatinine 2.05 UA positive for leukoesterase, WBC Computed tomography scan of the abdomen pelvis without contrast: Moderate fatty infiltration through the liver. Some ascites adjacent to the spleen. Gallbladder absent. Renal calcification. No obvious obstruction. Prominent small bowel loops within the mid abdomen. Previous labs: Creatinine 1.26 on [February 2020] Assessment and plan: -Acute UTI with cystitis, with multiple prior episodes of pyelonephritis IV fluids. IV Zosyn. Urine culture pending. -Bilateral nephrolithiasis, with a history of possible oxalate stones Laboratory Analyst urology -Chronic kidney disease stage III, possibly a combination of obstructive uropathy and from kidney stones We'll rule out acute component. Creatinine has gone up from 1.26 up to 2.05 over the course of the year -Morbid obesity BMI 45.8 Weight loss measures -Hypothyroid Synthroid -Essential hypertension, with chronic kidney disease , Lopressor, Catapres. Hold amlodipine for now -Nonalcoholic fatty liver disease Care was discussed with the patient. IV Zosyn. IV fluids. Repeat BMP in the morning. Consult urology. Nephrology. Urine culture pending. Given the complexity and severity of patient's condition expect the patient to be in the hospital at least for 2 overnights Past Medical History Past Medical History: Hypertension, Renal Disease, Thyroid Disorder Additional Past Medical History / Comment(s): Kidney stones, gout, UTI. History of Any Multi-Drug Resistant Organisms: ESBL Date of last positivie culture/infection: 02/11/20 MDRO Source:: Urine ESBL Past Surgical History: Adenoidectomy, Ear Surgery, Hernia Repair, Orthopedic Surgery Additional Past Surgical History / Comment(s): lithotripsy,. recent cystoscopy with rt double j tube placement . BILAT LEG SURGERY CHILD AND STRETCHING OF ACHILLES TENDONS X 3 Past Anesthesia/Blood Transfusion Reactions: Motion Sickness Past Psychological History: No Psychological Hx Reported Smoking Status: Never smoker Past Alcohol Use History: None Reported Past Drug Use History: None Reported - Past Family History Father Family Medical History: Cancer, Diabetes Mellitus Additional Family Medical History / Comment(s): LIVER &COLON CANCER. KIDNEY STONES Mother History Unknown: Yes Family Medical History: No Reported History Additional Family Medical History / Comment(s): MOM IS HEALTHY SHE STATES NO MEDICAL PROBLEMS Medications and Allergies Home Medications Medication Instructions Recorded Confirmed Type amLODIPine [Norvasc] 10 mg PO DAILY #30 tab 09/15/19 04/29/21 Rx HYDROcodone/APAP 5-325MG [[place] 1 - 2 tab PO Q4HR PRN 02/14/20 04/29/21 History 5-325] cloNIDine HCL [Catapres] 0.2 mg PO TID 02/14/20 04/29/21 History Allopurinol [Zyloprim] 100 mg PO DAILY 04/29/21 04/29/21 History Cyclobenzaprine [Flexeril] 10 mg PO TID PRN 04/29/21 04/29/21 History Levothyroxine Sodium [Synthroid] 150 mcg PO DAILY 04/29/21 04/29/21 History Metoprolol Tartrate [Lopressor] 50 mg PO BID 04/29/21 04/29/21 History Allergies Allergy/AdvReac Type Severity Reaction Status Date / Time sulfamethoxazole Allergy Intermediate Rash/Hives Verified 04/29/21 10:35 [From Bactrim] trimethoprim [From Bactrim] Allergy Intermediate Rash/Hives Verified 04/29/21 10:35 ciprofloxacin [From Cipro] Allergy Unknown Verified 04/29/21 10:35 Physical Exam Vitals: Vital Signs Temp Pulse Pulse Resp BP BP Pulse Ox 04/29/21 10:20 98.0 F 63 18 116/84 94 L 04/29/21 10:05 98.2 F 04/29/21 09:25 81 18 131/83 96 04/29/21 06:33 98.1 F 102 H 18 142/87 94 L Intake and Output 04/28/21 04/29/21 04/29/21 22:59 06:59 14:59 Other: Weight 140.614 kg Results CBC & Chem 7: 04/29/21 07:01 04/29/21 07:01 Labs: Abnormal Lab Results - Last 24 Hours (Table) 04/29/21 04/29/21 04/29/21 Range/Units 07:01 07:01 07:01 WBC 12.5 H (3.8-10.6) k/uL Neutrophils # 10.5 H (1.3-7.7) k/uL Creatinine 2.05 H (0.66-1.25) mg/dL Glucose 133 H (74-99) mg/dL Urine Protein 2+ H (Negative) Urine Ketones Trace H (Negative) Urine Blood Small H (Negative) Ur Leukocyte Esterase Large H (Negative) Urine RBC 58 H (0-5) /hpf Urine WBC >182 H (0-5) /hpf Urine WBC Clumps Many H (None) /hpf Ur Squamous Epith Cells 8 H (0-4) /hpf Urine Bacteria Many H (None) /hpf Urine Mucus Many H (None) /hpf
[2021-04-29] MEDS: PIPERACILLIN-TAZOBACTAM 3.375 GM in SODIUM CHLORIDE 0.9% 100 ML IVPB SCH (17:29)
--- NOTE | 2021-04-29 17:29 | P.GSCN ---
History of Present Illness Consult date: 04/29/21 History of present illness: 55-year-old male admitted to the hospital with abdominal pain fatigue frequency and urgency. He came to the emergency room after a couple of days of these problems. He has a known history kidney stones as well as recurrent prostatitis. His urinalysis identified what appeared to be infected looking urine. His white count was mildly elevated at 12.5. A computed tomography scan identified a 14 cm right renal pelvic stone and another 14 mm right upper pole calyceal stone. There is no obstruction in the ureter. His creatinine was 2 bu t he has not been eating or drinking much in the last 48 hours. The patient has multiple medical illnesses chronically. He is morbidly obese. He has had stones for years requiring multiple different urologic procedures. At present he is more comfortable since he has had some antibiotics and IV fluids. Review of Systems All systems: negative - Constitutional Denies fever, Denies weight loss - EENT Eyes: denies blurred vision Ears, nose, mouth and throat: Denies dysphagia - Cardiovascular Denies chest pain, Denies shortness of breath - Respiratory Denies cough, Denies 7 - Gastrointestinal Reports as per HPI - Genitourinary Denies dysuria, Denies hematuria - Integumentary Denies rash, Denies unusual bruising - Neurological Denies headaches, Denies syncope - Hematologic/Lymphatic Denies easy bleeding, Denies easy bruising Past Medical History Past Medical History: Hypertension, Renal Disease, Thyroid Disorder Additional Past Medical History / Comment(s): Kidney stones, gout, UTI. History of Any Multi-Drug Resistant Organisms: ESBL Year Discovered:: 02/11/20 MDRO Source:: Urine ESBL Past Surgical History: Adenoidectomy, Ear Surgery, Hernia Repair, Orthopedic Surgery Additional Past Surgical History / Comment(s): lithotripsy,. recent cystoscopy with rt double j tube placement . BILAT LEG SURGERY CHILD AND STRETCHING OF ACHILLES TENDONS X 3 Past Anesthesia/Blood Transfusion Reactions: Motion Sickness Past Psychological History: No Psychological Hx Reported Smoking Status: Never smoker Past Alcohol Use History: None Reported Past Drug Use History: None Reported - Past Family History Father Family Medical History: Cancer, Diabetes Mellitus Additional Family Medical History / Comment(s): LIVER &COLON CANCER. KIDNEY STONES Mother History Unknown: Yes Family Medical History: No Reported History Additional Family Medical History / Comment(s): MOM IS HEALTHY SHE STATES NO MEDICAL PROBLEMS Medications and Allergies Home Medications Medication Instructions Recorded Confirmed Type amLODIPine [Norvasc] 10 mg PO DAILY #30 tab 09/15/19 04/29/21 Rx HYDROcodone/APAP 5-325MG [[place] 1 - 2 tab PO Q4HR PRN 02/14/20 04/29/21 History 5-325] cloNIDine HCL [Catapres] 0.2 mg PO TID 02/14/20 04/29/21 History Allopurinol [Zyloprim] 100 mg PO DAILY 04/29/21 04/29/21 History Cyclobenzaprine [Flexeril] 10 mg PO TID PRN 04/29/21 04/29/21 History Levothyroxine Sodium [Synthroid] 150 mcg PO DAILY 04/29/21 04/29/21 History Metoprolol Tartrate [Lopressor] 50 mg PO BID 04/29/21 04/29/21 History Allergies Allergy/AdvReac Type Severity Reaction Status Date / Time sulfamethoxazole Allergy Intermediate Rash/Hives Verified 04/29/21 10:35 [From Bactrim] trimethoprim [From Bactrim] Allergy Intermediate Rash/Hives Verified 04/29/21 10:35 ciprofloxacin [From Cipro] Allergy Unknown Verified 04/29/21 10:35 Surgical - Exam Vital Signs Temp Pulse Resp BP Pulse Ox 98.1 F 102 H 18 142/87 94 L 04/29/21 06:33 04/29/21 06:33 04/29/21 06:33 04/29/21 06:33 04/29/21 06:33 - General well developed, well nourished, obese - Eyes PERRL - ENT no hearing loss - Neck trachea midline - Respiratory normal expansion, normal respiratory effort - Cardiovascular Rhythm: regular - Abdomen Abdomen: soft, non tender - Genitourinary normal penis with no external lesions - Integumentary no rash, no growths - Neurologic normal coordination, normal sensation - Musculoskeletal normal posture - Psychiatric oriented to time, oriented to person, oriented to place, speech is normal, memory intact Results - Labs 04/29/21 07:01 04/29/21 07:01 Abnormal Lab Results - Last 24 Hours (Table) 04/29/21 04/29/21 04/29/21 Range/Units 07:01 07:01 07:01 WBC 12.5 H (3.8-10.6) k/uL Neutrophils # 10.5 H (1.3-7.7) k/uL Creatinine 2.05 H (0.66-1.25) mg/dL Glucose 133 H (74-99) mg/dL Urine Protein 2+ H (Negative) Urine Ketones Trace H (Negative) Urine Blood Small H (Negative) Ur Leukocyte Esterase Large H (Negative) Urine RBC 58 H (0-5) /hpf Urine WBC >182 H (0-5) /hpf Urine WBC Clumps Many H (None) /hpf Ur Squamous Epith Cells 8 H (0-4) /hpf Urine Bacteria Many H (None) /hpf Urine Mucus Many H (None) /hpf Microbiology - Last 24 Hours (Table) 04/29/21 07:01 Urine Culture - Preliminary Urine,Voided Diabetes panel 04/29/21 Range/Units 07:01 Sodium 139 (137-145) mmol/L Potassium 4.0 (3.5-5.1) mmol/L Chloride 103 (98-107) mmol/L Carbon Dioxide 26 (22-30) mmol/L BUN 19 (9-20) mg/dL Creatinine 2.05 H (0.66-1.25) mg/dL Glucose 133 H (74-99) mg/dL Calcium 9.1 (8.4-10.2) mg/dL AST 24 (17-59) U/L ALT 31 (4-49) U/L Alkaline Phosphatase 73 (38-126) U/L Total Protein 7.1 (6.3-8.2) g/dL Albumin 4.0 (3.5-5.0) g/dL Calcium panel 04/29/21 Range/Units 07:01 Calcium 9.1 (8.4-10.2) mg/dL Albumin 4.0 (3.5-5.0) g/dL Pituitary panel 04/29/21 Range/Units 07:01 Sodium 139 (137-145) mmol/L Potassium 4.0 (3.5-5.1) mmol/L Chloride 103 (98-107) mmol/L Carbon Dioxide 26 (22-30) mmol/L BUN 19 (9-20) mg/dL Creatinine 2.05 H (0.66-1.25) mg/dL Glucose 133 H (74-99) mg/dL Calcium 9.1 (8.4-10.2) mg/dL Adrenal panel 04/29/21 Range/Units 07:01 Sodium 139 (137-145) mmol/L Potassium 4.0 (3.5-5.1) mmol/L Chloride 103 (98-107) mmol/L Carbon Dioxide 26 (22-30) mmol/L BUN 19 (9-20) mg/dL Creatinine 2.05 H (0.66-1.25) mg/dL Glucose 133 H (74-99) mg/dL Calcium 9.1 (8.4-10.2) mg/dL Total Bilirubin 0.8 (0.2-1.3) mg/dL AST 24 (17-59) U/L ALT 31 (4-49) U/L Alkaline Phosphatase 73 (38-126) U/L Total Protein 7.1 (6.3-8.2) g/dL Albumin 4.0 (3.5-5.0) g/dL - Imaging CT scan - abdomen: report reviewed, image reviewed CT scan - pelvis: report reviewed, image reviewed Assessment and Plan Assessment: Impression: Urinary tract infection probable acute prostatitis. History of chronic prostatitis. Right renal pelvic stone with discomfort. Right renal stone. She has stone disease. History of hypertension and obesity. Recommendations: Cultures have been obtained. Antibiotics have been administered. Recommend treating the prostatitis first. Secondarily he'll need treatment for his right kidney stones. There is no obstruction at this point in time noted. The mild elevation of the creatinine is probably due to dehydration. He has chronic renal insufficiency probably due to poorly controlled blood pressure. The patient will need urologic follow-up for treatment of these right renal stones.
[2021-04-30] MEDS: PIPERACILLIN-TAZOBACTAM 3.375 GM in SODIUM CHLORIDE 0.9% 100 ML IVPB SCH ×3 (01:34→17:55)
[2021-04-30] MEDS: SODIUM CHLORIDE 0.9% 1,000 ML IV SCH ×3 (05:14→22:39)
[2021-04-30] MEDS: LEVOTHYROXINE 75 MCG TAB PO SCH (05:15)
[2021-04-30 05:47] LABS: African American GFR (CKD) 27 (>60 ml/min/1.73 sqM); Anion Gap 10 mmol/L; Blood Urea Nitrogen 28 mg/dL (9-20); Calcium 7.9 mg/dL (8.4-10.2); Carbon Dioxide 19 mmol/L (22-30); Chloride 108 mmol/L (98-107); Glucose 107 mg/dL (74-99); Non-African American GFR(CKD) 23 (>60 ml/min/1.73 sqM); Potassium 4.6 mmol/L (3.5-5.1); Sodium 137 mmol/L (137-145)
[2021-04-30] MEDS: cloNIDine HCL 0.2 MG TAB PO SCH ×3 (08:42→21:31)
[2021-04-30] MEDS: allopurinoL 100 MG TAB PO SCH (08:42)
[2021-04-30] MEDS: METOPROLOL TARTRATE 50 MG TAB PO SCH ×2 (08:42→21:29)
--- NOTE | 2021-04-30 09:07 | P.NPCON ---
History of Present Illness - Reason for Consult acute renal failure, chronic renal failure - History of Present Illness Reason for consultation: Acute kidney injury on chronic kidney disease History of present illness: Patient is a 55-year-old male seen in renal consultation for acute kidney injury on chronic kidney disease. Patient has chronic kidney disease stage IIIB with baseline creatinine in the range of 1.3-1.5. Etiology is nephrosclerosis. Patient presented to the hospital with right flank pain. He is currently on antibiotics for UTI and acute prostatitis. He has been evaluated by urology. Patient also has history of kidney stones and has required multiple surgical interventions in the past. He did receive Toradol this admission and has now been stopped. He is maintained on IV fluids. Has been voiding. No hematuria or dysuria. Denies regular use of nonsteroidals at home. No history of diabetes. Denies family history of renal disease. He has long-standing history of high blood pressure. No chest pain or shortness of breath. No edema. Creatinine was 2.05 on admission and is up to 2.93 today. Blood pressure not low. Vital signs are stable. General: The patient appeared well nourished and normally developed. HEENT: Head exam is unremarkable. Neck is without jugular venous distension. LUNGS: Breath sounds decreased. HEART: Rate and Rhythm are regular. ABDOMEN: Soft, no distention. EXTREMITITES: No edema. Past Medical History Past Medical History: Hypertension, Renal Disease, Thyroid Disorder Additional Past Medical History / Comment(s): Kidney stones, gout, UTI. History of Any Multi-Drug Resistant Organisms: ESBL Date of last positivie culture/infection: 02/11/20 MDRO Source:: Urine ESBL Past Surgical History: Adenoidectomy, Ear Surgery, Hernia Repair, Orthopedic Surgery Additional Past Surgical History / Comment(s): lithotripsy,. recent cystoscopy with rt double j tube placement . BILAT LEG SURGERY CHILD AND STRETCHING OF ACHILLES TENDONS X 3 Past Anesthesia/Blood Transfusion Reactions: Motion Sickness Past Psychological History: No Psychological Hx Reported Smoking Status: Never smoker Past Alcohol Use History: None Reported Past Drug Use History: None Reported - Past Family History Father Family Medical History: Cancer, Diabetes Mellitus Additional Family Medical History / Comment(s): LIVER &COLON CANCER. KIDNEY STONES Mother History Unknown: Yes Family Medical History: No Reported History Additional Family Medical History / Comment(s): MOM IS HEALTHY SHE STATES NO MEDICAL PROBLEMS Medications and Allergies Home Medications Medication Instructions Recorded Confirmed Type amLODIPine [Norvasc] 10 mg PO DAILY #30 tab 09/15/19 04/29/21 Rx HYDROcodone/APAP 5-325MG [[place] 1 - 2 tab PO Q4HR PRN 02/14/20 04/29/21 History 5-325] cloNIDine HCL [Catapres] 0.2 mg PO TID 02/14/20 04/29/21 History Allopurinol [Zyloprim] 100 mg PO DAILY 04/29/21 04/29/21 History Cyclobenzaprine [Flexeril] 10 mg PO TID PRN 04/29/21 04/29/21 History Levothyroxine Sodium [Synthroid] 150 mcg PO DAILY 04/29/21 04/29/21 History Metoprolol Tartrate [Lopressor] 50 mg PO BID 04/29/21 04/29/21 History Allergies Allergy/AdvReac Type Severity Reaction Status Date / Time sulfamethoxazole Allergy Intermediate Rash/Hives Verified 04/29/21 10:35 [From Bactrim] trimethoprim [From Bactrim] Allergy Intermediate Rash/Hives Verified 04/29/21 10:35 ciprofloxacin [From Cipro] Allergy Unknown Verified 04/29/21 10:35 Physical Exam Vitals: Vital Signs Temp Pulse Pulse Resp BP BP Pulse Ox 04/30/21 05:00 97.5 F L 55 L 16 166/98 98 04/29/21 20:09 97.8 F 61 16 131/83 97 04/29/21 12:47 97.7 F 77 18 104/76 94 L 04/29/21 10:20 98.0 F 63 18 116/84 94 L 04/29/21 10:05 98.2 F 04/29/21 09:25 81 18 131/83 96 Intake and Output 04/29/21 04/30/21 04/30/21 22:59 06:59 14:59 Intake Total 360 2170 Balance 360 2170 Intake: Intake, IV Titration 1580 Amount Piperacillin-Tazobactam 3 200 .375 gm In Sodium Chloride 0.9% 100 ml @ 25 mls/hr IVPB Q8H [facility] Rx#: [id number] Sodium Chloride 0.9% 1, 1380 000 ml @ 130 mls/hr IV . [id number] [facility] Rx#:[id number] Oral 360 590 Other: # Voids 1 3 Results - Lab Results Most recent lab results Calcium 7.9 mg/dL (8.4-10.2) L 04/30/21 05:18 04/29/21 07:01 04/30/21 05:18 Assessment and Plan Plan: Assessment: 1. Acute kidney injury secondary to ATN secondary to infection. Creatinine was 2.05 on admission and is 2.93 today. No hydronephrosis noted on CAT scan. 2. Chronic kidney disease stage IIIB with baseline creatinine in the range of 1.3-1.5 secondary to nephrosclerosis. 3. UTI and acute prostatitis maintained on antibiotics. 4. Nephrolithiasis. 5. Hypertension with chronic kidney disease. 6. Metabolic acidosis secondary to acute kidney injury and IV fluids. Plan: Decrease rate of normal saline to 75 mL an hour. Add oral sodium bicarbonate. Encouraged oral intake. Avoid nephrotoxins. Follow-up cultures. Continue to monitor renal function and urine output. Hold clonidine for systolic blood pressure less than 120. Thank you for the consultation. I will continue to follow the patient with you during his hospital stay.
--- NOTE | 2021-04-30 12:04 | P.PN ---
Progress Note - Text Progress Note Date: 04/30/21 The patient states that he is feeling much better today. He continues to report mild right lower back pain radiating to the right groin. He is afebrile. Blood cultures are negative. A urine culture is pending. The serum creatinine level has increased to 2.93 today. He will continue to receive Zosyn, pending the urine culture results. He has a long history of kidney stones and is very adamant regarding his desire not to undergo stent placement, and this will be reserved only if he develops intractable symptoms.
--- NOTE | 2021-04-30 14:28 | P.PN ---
Progress Note - Text Progress Note Date: 04/30/21 Chief Complaint: Right lower abdominal pain History of presenting complaint: This is a pleasant 55-year-old patient of Dr. Hand. Chronic stable medical conditions include hypertension, hypothyroid and obesity, chronic kidney disease. Also multiple kidney stones-different procedures done. He follows with Dr. Koroma from urology. He believes he has calcium oxalate stones. Patient now presents with right lower quadrant pain starting 2 days ago. Denies any fever and chills. Has had some nausea and vomiting. Patient has urinary urgency. Very slight dysuria. Feels tired and rundown. Urine is orange colored. Urology consulted. Admitted with acute UTI with cystitis. Acute on chronic kidney disease.. Started on IV fluids. IV Zosyn. April 30: Getting IV antibiotics. Normal saline. Tired. Sitting up in a chair. Eating well. Worsening renal function Review of systems: Was done for constitutional, cardiovascular, GI, pulmonary. relevant finding as above Active Medications Hydrocodone Bitart/Acetaminophen (Hydrocodone/Apap 5-325mg 1 Each Tab) 1 each PO Q4HR PRN PRN Reason: Moderate Pain Allopurinol (Allopurinol 100 Mg Tab) 100 mg PO DAILY [facility] Last Admin: 04/30/21 08:42 Dose: 100 mg Documented by: Clonidine (Clonidine Hcl 0.2 Mg Tab) 0.2 mg PO TID [facility] Last Admin: 04/30/21 08:42 Dose: 0.2 mg Documented by: Cyclobenzaprine HCl (Cyclobenzaprine 10 Mg Tab) 10 mg PO TID PRN PRN Reason: Muscle Spasm Hydromorphone HCl (Hydromorphone 1 Mg/Ml 1 Ml Syringe) 1 mg IVP Q3HR PRN PRN Reason: Severe Pain Hydromorphone HCl (Hydromorphone 0.5 Mg/0.5 Ml Syringe) 0.5 mg IVP Q3HR PRN PRN Reason: Moderate Pain Last Admin: 04/29/21 13:41 Dose: 0.5 mg Documented by: Piperacillin Sod/Tazobactam (Sod 3.375 gm/ Sodium Chloride) 100 mls @ 25 mls/hr IVPB Q8H [facility] Last Admin: 04/30/21 08:43 Dose: 25 mls/hr Documented by: Sodium Chloride (Saline 0.9%) 1,000 mls @ 75 mls/hr IV .[id number] [facility] Last Admin: 04/30/21 05:14 Dose: 130 mls/hr Documented by: Levothyroxine Sodium (Levothyroxine 137 Mcg Tab) 137 mcg PO DAILY@0630 [facility] Metoprolol Tartrate (Metoprolol Tartrate 50 Mg Tab) 50 mg PO BID [facility] Last Admin: 04/30/21 08:42 Dose: 50 mg Documented by: Naloxone HCl (Naloxone 0.4 Mg/Ml 1 Ml Vial) 0.2 mg IV Q2M PRN PRN Reason: Opioid Reversal Ondansetron HCl (Ondansetron 4 Mg/2 Ml Vial) 4 mg IVP Q8HR PRN PRN Reason: Nausea And Vomiting Sodium Bicarbonate (Sodium Bicarbonate Tab 650 Mg Tab) 650 mg PO BID [facility] Past medical history: Hypertension, chronic kidney disease, hypothyroid, kidney stones, history of gout Social history: Does not smoke. Alcohol occasionally. 17-year-old son lives with him. on disability. Physical examination: VITAL SIGNS: 97.9, 55, 17, 112/68, 97% room air GENERAL: Sitting up in a chair, awake, tired EYES: Pupils equal. Conjunctiva normal. HEENT: External appearance of nose and ears normal, oral cavity grossly normal. NECK: JVD not raised; masses not palpable. HEART: First and second heart sounds are normal; no edema. LUNGS: Respiratory rate normal; clear to auscultation. ABDOMEN: Soft, right lower quadrant tenderness, no guarding rigidity, no guarding or rigidity, liver spleen not palpable, no masses palpable. PSYCH: Alert and oriented x3; mood and affect tired INVESTIGATIONS, reviewed in the clinical context: April 30: Potassium 4.6 bicarb 19 BUN 28 creatinine 2.93 WBC 12.5 hemoglobin 16.9 platelets 228 potassium 4 creatinine 2.05 UA positive for leukoesterase, WBC Computed tomography scan of the abdomen pelvis without contrast: Moderate fatty infiltration through the liver. Some ascites adjacent to the spleen. Gallbladder absent. Renal calcification. No obvious obstruction. Prominent small bowel loops within the mid abdomen. Previous labs: Creatinine 1.26 on [February 2020] Assessment and plan: -Acute UTI with cystitis, with multiple prior episodes of pyelonephritis IV fluids. IV Zosyn. Urine culture pending. -Bilateral nephrolithiasis, with a history of possible oxalate stones [facility] -Acute kidney injury, likely ATN from infection: Worsening Creatinine is going up. Continue with IV fluids antibiotics. -Chronic kidney disease stage III, possibly a combination of obstructive uropathy and from kidney stones Baseline creatinine 1.26 -Morbid obesity BMI 45.8 Weight loss measures -Hypothyroid Synthroid -Essential hypertension, with chronic kidney disease , Lopressor, Catapres. Hold amlodipine for now -Nonalcoholic fatty liver disease Care was discussed with the patient. IV Zosyn. IV fluids. Repeat BMP in the morning. Activity as tolerated.
[2021-04-30] MEDS: SODIUM BICARBONATE TAB 650 MG TAB PO SCH ×2 (17:56→21:30)
[2021-05-01] MEDS: PIPERACILLIN-TAZOBACTAM 3.375 GM in SODIUM CHLORIDE 0.9% 100 ML IVPB SCH ×3 (01:00→16:37)
[2021-05-01] MEDS: cloNIDine HCL 0.2 MG TAB PO SCH ×3 (05:11→21:17)
[2021-05-01] MEDS: LEVOTHYROXINE 137 MCG TAB PO SCH (05:11)
[2021-05-01 06:15] LABS: African American GFR (CKD) 42 (>60 ml/min/1.73 sqM); Anion Gap 7 mmol/L; Blood Urea Nitrogen 25 mg/dL (9-20); Calcium 8.6 mg/dL (8.4-10.2); Carbon Dioxide 26 mmol/L (22-30); Chloride 106 mmol/L (98-107); Glucose 102 mg/dL (74-99); Magnesium 1.9 mg/dL (1.6-2.3); Non-African American GFR(CKD) 37 (>60 ml/min/1.73 sqM); Potassium 3.9 mmol/L (3.5-5.1); Sodium 139 mmol/L (137-145)
[2021-05-01] MEDS: METOPROLOL TARTRATE 50 MG TAB PO SCH ×2 (07:53→21:17)
[2021-05-01] MEDS: allopurinoL 100 MG TAB PO SCH (07:53)
[2021-05-01] MEDS: SODIUM BICARBONATE TAB 650 MG TAB PO SCH (07:54)
--- NOTE | 2021-05-01 08:15 | P.PN ---
Progress Note - Text Progress Note Date: 05/01/21 Mr. Mason states that he continues to feel better. He denies dysuria and hematuria. He reports occasional sharp right flank pain. The preliminary urine culture shows gram-negative bacilli. Blood cultures are negative. He remains afebrile. The serum creatinine level has decreased to 2.01 today. From a urologic standpoint, he may be discharged home on oral antibiotics once the urine culture is complete and follow-up with Dr. Koroma in 1 week. Please notify us if we can be of any further assistance.
--- NOTE | 2021-05-01 09:07 | P.PN ---
Subjective Patient is seen in follow-up for acute kidney injury. Renal function better today. Receiving IV fluids. Oral intake is good. Good urine output. No vomiting or diarrhea. Denies any pain at this time. Vital signs are stable. General: The patient appeared well nourished and normally developed. HEENT: Head exam is unremarkable. Neck is without jugular venous distension. LUNGS: Breath sounds decreased. HEART: Rate and Rhythm are regular. ABDOMEN: Soft, no distention. EXTREMITITES: Trace edema. Objective - Vital Signs Vital signs: Vital Signs Temp 97.7 F 05/01/21 05:00 Pulse 57 L 05/01/21 07:53 Resp 18 05/01/21 05:00 BP 147/97 05/01/21 07:53 Pulse Ox 99 05/01/21 05:00 Intake & Output 04/30/21 05/01/21 05/01/21 18:59 06:59 18:59 Intake Total 2200 Output Total 700 Balance 2200 -700 Intake: Intake, IV Titration 1000 Amount Piperacillin-Tazobactam 3 100 .375 gm In Sodium Chloride 0.9% 100 ml @ 25 mls/hr IVPB Q8H [facility] Rx#: [id number] Sodium Chloride 0.9% 1, 900 000 ml @ 75 mls/hr IV . [id number] [facility] Rx#:[id number] Oral 1200 Output: Urine 700 Other: Voiding Method Urinal # Voids 3 - Labs CBC & Chem 7: 04/29/21 07:01 05/01/21 05:35 Labs: Abnormal Lab Results - Last 24 Hours (Table) 05/01/21 Range/Units 05:35 BUN 25 H (9-20) mg/dL Creatinine 2.01 H (0.66-1.25) mg/dL Glucose 102 H (74-99) mg/dL Microbiology - Last 24 Hours (Table) 04/29/21 07:01 Urine Culture - Preliminary Urine,Voided Gram Neg Bacilli 04/29/21 09:26 Blood Culture - Preliminary Blood No Growth after 24 hours 04/29/21 09:26 Blood Culture - Preliminary Blood No Growth after 24 hours Assessment and Plan Plan: Assessment: 1. Acute kidney injury secondary to ATN secondary to infection. Creatinine was 2.05 on admission peaked at 2.93 this admission - 2.01 today. No hydronephrosis noted on CAT scan. 2. Chronic kidney disease stage IIIB with baseline creatinine in the range of 1.3-1.5 secondary to nephrosclerosis. 3. UTI and acute prostatitis maintained on antibiotics. 4. Nephrolithiasis. Urology following. 5. Hypertension with chronic kidney disease. 6. Metabolic acidosis secondary to acute kidney injury and IV fluids. Maintained on oral bicarb. Plan: Hep-Lock IV fluids. Decrease dose of oral bicarb. Encouraged oral intake. Avoid nephrotoxins. Follow-up cultures. Continue to monitor renal function and urine output.
--- NOTE | 2021-05-01 23:14 | P.PN ---
Progress Note - Text Progress Note Date: 05/01/21 Chief Complaint: Right lower abdominal pain History of presenting complaint: This is a pleasant 55-year-old patient of Dr. Hand. Chronic stable medical conditions include hypertension, hypothyroid and obesity, chronic kidney disease. Also multiple kidney stones-different procedures done. He follows with Dr. Koroma from urology. He believes he has calcium oxalate stones. Patient now presents with right lower quadrant pain starting 2 days ago. Denies any fever and chills. Has had some nausea and vomiting. Patient has urinary urgency. Very slight dysuria. Feels tired and rundown. Urine is orange colored. Urology consulted. Admitted with acute UTI with cystitis. Acute on chronic kidney disease.. Started on IV fluids. IV Zosyn. April 30: Getting IV antibiotics. Normal saline. Tired. Sitting up in a chair. Eating well. Worsening renal function May 01: Abdominal pain better. Feeling better. On IV antibiotics. Oral intake better. Has been out of bed Review of systems: Was done for constitutional, cardiovascular, GI, pulmonary. relevant finding as above Active Medications Hydrocodone Bitart/Acetaminophen (Hydrocodone/Apap 5-325mg 1 Each Tab) 1 each PO Q4HR PRN PRN Reason: Moderate Pain Allopurinol (Allopurinol 100 Mg Tab) 100 mg PO DAILY [facility] Last Admin: 05/01/21 07:53 Dose: 100 mg Documented by: Clonidine (Clonidine Hcl 0.2 Mg Tab) 0.2 mg PO TID [facility] Last Admin: 05/01/21 21:17 Dose: 0.2 mg Documented by: Cyclobenzaprine HCl (Cyclobenzaprine 10 Mg Tab) 10 mg PO TID PRN PRN Reason: Muscle Spasm Hydromorphone HCl (Hydromorphone 1 Mg/Ml 1 Ml Syringe) 1 mg IVP Q3HR PRN PRN Reason: Severe Pain Hydromorphone HCl (Hydromorphone 0.5 Mg/0.5 Ml Syringe) 0.5 mg IVP Q3HR PRN PRN Reason: Moderate Pain Last Admin: 04/29/21 13:41 Dose: 0.5 mg Documented by: Piperacillin Sod/Tazobactam (Sod 3.375 gm/ Sodium Chloride) 100 mls @ 25 mls/hr IVPB Q8H [facility] Last Admin: 05/01/21 16:37 Dose: 25 mls/hr Documented by: Levothyroxine Sodium (Levothyroxine 137 Mcg Tab) 137 mcg PO DAILY@0630 [facility] Last Admin: 05/01/21 05:11 Dose: 137 mcg Documented by: Metoprolol Tartrate (Metoprolol Tartrate 50 Mg Tab) 50 mg PO BID [facility] Last Admin: 05/01/21 21:17 Dose: 50 mg Documented by: Naloxone HCl (Naloxone 0.4 Mg/Ml 1 Ml Vial) 0.2 mg IV Q2M PRN PRN Reason: Opioid Reversal Ondansetron HCl (Ondansetron 4 Mg/2 Ml Vial) 4 mg IVP Q8HR PRN PRN Reason: Nausea And Vomiting Sodium Bicarbonate (Sodium Bicarbonate Tab 650 Mg Tab) 650 mg PO DAILY [facility] Past medical history: Hypertension, chronic kidney disease, hypothyroid, kidney stones, history of gout Social history: Does not smoke. Alcohol occasionally. 17-year-old son lives with him. on disability. Physical examination: VITAL SIGNS: 98.2, 2, 18, 153/93, 99% room air GENERAL: A declining in bed, awake, EYES: Pupils equal. Conjunctiva normal. HEENT: External appearance of nose and ears normal, oral cavity grossly normal. NECK: JVD not raised; masses not palpable. HEART: First and second heart sounds are normal; no edema. LUNGS: Respiratory rate normal; clear to auscultation. ABDOMEN: Soft, no tenderness, no guarding rigidity, no guarding or rigidity, liver spleen not palpable, no masses palpable. PSYCH: Alert and oriented x3; mood and affect tired INVESTIGATIONS, reviewed in the clinical context: May 01: Potassium 3.9 creatinine 2.01 April 30: Potassium 4.6 bicarb 19 BUN 28 creatinine 2.93 WBC 12.5 hemoglobin 16.9 platelets 228 potassium 4 creatinine 2.05 UA positive for leukoesterase, WBC Urine culture: E. coli/esbl Computed tomography scan of the abdomen pelvis without contrast: Moderate fatty infiltration through the liver. Some ascites adjacent to the spleen. Gallbladder absent. Renal calcification. No obvious obstruction. Prominent small bowel loops within the mid abdomen. Previous labs: Creatinine 1.26 on [February 2020] Assessment and plan: -Acute UTI with cystitis, with multiple prior episodes of pyelonephritis. Culture positive for E. coli/ESBL IV fluids. IV Zosyn. Consult ID -Bilateral nephrolithiasis, with a history of possible oxalate stones [employer] urology -Acute kidney injury, likely ATN from infection: Improving Creatinine is going up. Continue with IV fluids antibiotics. -Chronic kidney disease stage III, possibly a combination of obstructive uropathy and from kidney stones Baseline creatinine 1.26 -Morbid obesity BMI 45.8 Weight loss measures -Hypothyroid Synthroid -Essential hypertension, with chronic kidney disease , Lopressor, Catapres. Hold amlodipine for now -Nonalcoholic fatty liver disease Care was discussed with the patient. IV Zosyn. IV fluids. Follow BMP. Increase activity. Consult ID.
[2021-05-02] MEDS: PIPERACILLIN-TAZOBACTAM 3.375 GM in SODIUM CHLORIDE 0.9% 100 ML IVPB SCH ×2 (01:35→09:49)
[2021-05-02] MEDS: LEVOTHYROXINE 137 MCG TAB PO SCH (05:55)
[2021-05-02] MEDS: cloNIDine HCL 0.2 MG TAB PO SCH ×3 (05:55→20:25)
[2021-05-02] MEDS: allopurinoL 100 MG TAB PO SCH (09:55)
[2021-05-02] MEDS: SODIUM BICARBONATE TAB 650 MG TAB PO SCH (09:55)
[2021-05-02] MEDS: METOPROLOL TARTRATE 50 MG TAB PO SCH ×2 (11:53→20:25)
[2021-05-02] MEDS: ERTAPENEM 1 GM in SODIUM CHLORIDE 0.9% 50 ML IVPB SCH (11:53)
[2021-05-02 13:07] LABS: African American GFR (CKD) 48.4 (60.0-200.0); Anion Gap 9.4 mmol/L (4.00-12.00); BUN/Creat Ratio 11.67 Ratio (12.00-20.00); Calcium 8.7 mg/dL (8.7-10.3); Carbon Dioxide 24.6 mmol/L (21.6-31.8); Magnesium 1.9 mg/dL (1.5-2.4); Non-African American GFR(CKD) 41.7 (60.0-200.0); Potassium 4.3 mmol/L (3.5-5.5)
--- NOTE | 2021-05-02 13:07 | P.PN ---
Subjective Patient is seen in follow-up for acute kidney injury. Renal function better - creatinine 2.01 yesterday. Oral intake is good. Good urine output. No vomiting or diarrhea. Blood pressure has been high. Vital signs are stable. General: The patient appeared well nourished and normally developed. HEENT: Head exam is unremarkable. Neck is without jugular venous distension. LUNGS: Breath sounds decreased. HEART: Rate and Rhythm are regular. ABDOMEN: Soft, no distention. EXTREMITITES: Trace edema. Objective - Vital Signs Vital signs: Vital Signs Temp 98.1 F 05/02/21 11:34 Pulse 63 05/02/21 11:34 Resp 17 05/02/21 11:34 BP 194/91 05/02/21 11:34 Pulse Ox 95 05/02/21 11:34 Intake & Output 05/01/21 05/02/21 05/02/21 18:59 06:59 18:59 Intake Total 640 690 Output Total 2200 600 Balance -1560 90 Intake: Intake, IV Titration 100 Amount Piperacillin-Tazobactam 3 100 .375 gm In Sodium Chloride 0.9% 100 ml @ 25 mls/hr IVPB Q8H [facility] Rx#: [id number] Oral 640 590 Output: Urine 2200 600 Other: Voiding Method Urinal Urinal Urinal - Labs CBC & Chem 7: 04/29/21 07:01 05/01/21 05:35 Labs: Microbiology - Last 24 Hours (Table) 04/29/21 09:26 Blood Culture - Preliminary Blood No Growth after 72 hours 04/29/21 09:26 Blood Culture - Preliminary Blood No Growth after 72 hours 04/29/21 07:01 Urine Culture - Final Urine,Voided Escherichia coli Assessment and Plan Plan: Assessment: 1. Acute kidney injury secondary to ATN secondary to infection. Creatinine was 2.05 on admission peaked at 2.93 this admission - 2.01 yesterday. No hydronephrosis noted on CAT scan. 2. Chronic kidney disease stage IIIB with baseline creatinine in the range of 1.3-1.5 secondary to nephrosclerosis. 3. UTI and acute prostatitis maintained on antibiotics. Urine culture positive for E. coli. 4. Nephrolithiasis. Urology following. 5. Hypertension with chronic kidney disease. 6. Metabolic acidosis secondary to acute kidney injury and IV fluids. Maintained on oral bicarb. Improved. Plan: Remains off IV fluids. Encouraged oral intake. Avoid nephrotoxins. Continue to monitor renal function and urine output. Add hydralazine 25 mg 3 times daily. To be held for systolic blood pressure less than 120.
[2021-05-02] MEDS: amLODIPine 10 MG TAB PO SCH (13:47)
[2021-05-02] MEDS: hydrALAZINE HCL 25 MG TAB PO SCH ×2 (16:42→20:25)
--- NOTE | 2021-05-02 17:42 | P.PN ---
Progress Note - Text Progress Note Date: 05/02/21 Chief Complaint: Right lower abdominal pain History of presenting complaint: This is a pleasant 55-year-old patient of Dr. Hand. Chronic stable medical conditions include hypertension, hypothyroid and obesity, chronic kidney disease. Also multiple kidney stones-different procedures done. He follows with Dr. Koroma from urology. He believes he has calcium oxalate stones. Patient now presents with right lower quadrant pain starting 2 days ago. Denies any fever and chills. Has had some nausea and vomiting. Patient has urinary urgency. Very slight dysuria. Feels tired and rundown. Urine is orange colored. Urology consulted. Admitted with acute UTI with cystitis. Acute on chronic kidney disease.. Started on IV fluids. IV Zosyn. April 30: Getting IV antibiotics. Normal saline. Tired. Sitting up in a chair. Eating well. Worsening renal function May 01: Abdominal pain better. Feeling better. On IV antibiotics. Oral intake better. Has been out of bed May 02: Eating well. No abdominal pain. Making good urine. No fever. Creatinine coming down. Amlodipine 10 mg home dose being resumed Review of systems: Was done for constitutional, cardiovascular, GI, pulmonary. relevant finding as above Active Medications Hydrocodone Bitart/Acetaminophen (Hydrocodone/Apap 5-325mg 1 Each Tab) 1 each PO Q4HR PRN PRN Reason: Moderate Pain Allopurinol (Allopurinol 100 Mg Tab) 100 mg PO DAILY [facility] Last Admin: 05/02/21 09:55 Dose: 100 mg Documented by: Amlodipine Besylate (Amlodipine 10 Mg Tab) 10 mg PO DAILY [facility] Last Admin: 05/02/21 13:47 Dose: 10 mg Documented by: Clonidine (Clonidine Hcl 0.2 Mg Tab) 0.2 mg PO TID [facility] Last Admin: 05/02/21 16:42 Dose: 0.2 mg Documented by: Cyclobenzaprine HCl (Cyclobenzaprine 10 Mg Tab) 10 mg PO TID PRN PRN Reason: Muscle Spasm Hydralazine HCl (Hydralazine Hcl 25 Mg Tab) 25 mg PO TID [facility] Last Admin: 05/02/21 16:42 Dose: 25 mg Documented by: Hydromorphone HCl (Hydromorphone 1 Mg/Ml 1 Ml Syringe) 1 mg IVP Q3HR PRN PRN Reason: Severe Pain Hydromorphone HCl (Hydromorphone 0.5 Mg/0.5 Ml Syringe) 0.5 mg IVP Q3HR PRN PRN Reason: Moderate Pain Last Admin: 04/29/21 13:41 Dose: 0.5 mg Documented by: Ertapenem 1 gm/ Sodium (Chloride) 50 mls @ 100 mls/hr IVPB DAILY [facility]; Protocol Last Admin: 05/02/21 11:53 Dose: 100 mls/hr Documented by: Levothyroxine Sodium (Levothyroxine 137 Mcg Tab) 137 mcg PO DAILY@0630 [facility] Last Admin: 05/02/21 05:55 Dose: 137 mcg Documented by: Metoprolol Tartrate (Metoprolol Tartrate 50 Mg Tab) 50 mg PO BID [facility] Last Admin: 05/02/21 11:53 Dose: 50 mg Documented by: Naloxone HCl (Naloxone 0.4 Mg/Ml 1 Ml Vial) 0.2 mg IV Q2M PRN PRN Reason: Opioid Reversal Ondansetron HCl (Ondansetron 4 Mg/2 Ml Vial) 4 mg IVP Q8HR PRN PRN Reason: Nausea And Vomiting Sodium Bicarbonate (Sodium Bicarbonate Tab 650 Mg Tab) 650 mg PO DAILY [facility] Last Admin: 05/02/21 09:55 Dose: 650 mg Documented by: Past medical history: Hypertension, chronic kidney disease, hypothyroid, kidney stones, history of gout Social history: Does not smoke. Alcohol occasionally. 17-year-old son lives with him. on disability. Physical examination: VITAL SIGNS: 98.1, 63, 17, 166/102, 95% room air GENERAL: Sitting up in a chair, awake, comfortable EYES: Pupils equal. Conjunctiva normal. HEENT: External appearance of nose and ears normal, oral cavity grossly normal. NECK: JVD not raised; masses not palpable. HEART: First and second heart sounds are normal; no edema. LUNGS: Respiratory rate normal; clear to auscultation. ABDOMEN: Soft, no tenderness, no guarding rigidity, no guarding or rigidity, liver spleen not palpable, no masses palpable. PSYCH: Alert and oriented x3; mood and affect tired INVESTIGATIONS, reviewed in the clinical context: May 02: Potassium 4.3 creatinine 1.8 May 01: Potassium 3.9 creatinine 2.01 April 30: Potassium 4.6 bicarb 19 BUN 28 creatinine 2.93 WBC 12.5 hemoglobin 16.9 platelets 228 potassium 4 creatinine 2.05 UA positive for leukoesterase, WBC Urine culture: E. coli/esbl Computed tomography scan of the abdomen pelvis without contrast: Moderate fatty infiltration through the liver. Some ascites adjacent to the spleen. Gallbladder absent. Renal calcification. No obvious obstruction. Prominent small bowel loops within the mid abdomen. Previous labs: Creatinine 1.26 on [February 2020] Assessment and plan: -Acute UTI with cystitis, with multiple prior episodes of pyelonephritis. Culture positive for E. coli/ESBL IV fluids. IV Zosyn-changed to IV ertapenem. -Bilateral nephrolithiasis, with a history of possible oxalate stones [employer] u[facility] -Acute kidney injury, likely ATN from infection: Improving Creatinine 2.93. Down to 1.8 follow -Chronic kidney disease stage III, possibly a combination of obstructive uropathy and from kidney stones Baseline creatinine 1.26 -Morbid obesity BMI 45.8 Weight loss measures -Hypothyroid Synthroid -Essential hypertension, with chronic kidney disease , Lopressor, Catapres. Hold amlodipine for now -Nonalcoholic fatty liver disease Continue IV ertapenem. Continue IV fluids. Repeat labs in the morning. Increase activity.
--- NOTE | 2021-05-02 23:18 | P.CONS ---
History of Present Illness - Reason for Consult Consult date: 05/02/21 ESBL E. coli urinary tract infection Requesting physician: Mukesh Kenyon - Chief Complaint right flank pain x few days - History of Present Illness Patient is a 55-year-old male presenting to the ER 3 days ago with chief complaints of right flank pain that have been going on for few days however he did have recent worsening especially at night before presentation to the hospital patient did have a history of kidney stones and thought his pain was similar to his previous episodes of kidney stone patient describes the pain to be more of a sharp in nature intensity almost 7-8 out of 10 and no significant radiation patient did have some frequency of urine but no burning no suprapubic pain some nausea but no vomiting patient on presentation to the hospital was afebrile he did have white count of 12.5 patient did have elevated creatinine of 2.05 liver enzymes has been normal patient did have a positive UA patient has been treated with Zosyn CT abdominal pelvis was done which shows ascites with an abdominal pelvis nonobstructive bilateral renal stones patient has been treated with nephrology and urology with a urine culture has been finalized with ESBL E. coli infectious disease was consulted for further management of antibiotic therapy. Review of Systems Positive point has been mentioned in the HPI rest of the systems are negative Past Medical History Past Medical History: Hypertension, Renal Disease, Thyroid Disorder Additional Past Medical History / Comment(s): Kidney stones, gout, UTI. History of Any Multi-Drug Resistant Organisms: ESBL Year Discovered:: 04/29/21 MDRO Source:: Urine ESBL Past Surgical History: Adenoidectomy, Ear Surgery, Hernia Repair, Orthopedic Surgery Additional Past Surgical History / Comment(s): lithotripsy,. recent cystoscopy with rt double j tube placement . BILAT LEG SURGERY CHILD AND STRETCHING OF ACHILLES TENDONS X 3 Past Anesthesia/Blood Transfusion Reactions: Motion Sickness Past Psychological History: No Psychological Hx Reported Smoking Status: Never smoker Past Alcohol Use History: None Reported Past Drug Use History: None Reported - Past Family History Father Family Medical History: Cancer, Diabetes Mellitus Additional Family Medical History / Comment(s): LIVER &COLON CANCER. KIDNEY STONES Mother History Unknown: Yes Family Medical History: No Reported History Additional Family Medical History / Comment(s): MOM IS HEALTHY SHE STATES NO MEDICAL PROBLEMS Medications and Allergies Home Medications Medication Instructions Recorded Confirmed Type amLODIPine [Norvasc] 10 mg PO DAILY #30 tab 09/15/19 04/29/21 Rx HYDROcodone/APAP 5-325MG [[place] 1 - 2 tab PO Q4HR PRN 02/14/20 04/29/21 History 5-325] cloNIDine HCL [Catapres] 0.2 mg PO TID 02/14/20 04/29/21 History Allopurinol [Zyloprim] 100 mg PO DAILY 04/29/21 04/29/21 History Cyclobenzaprine [Flexeril] 10 mg PO TID PRN 04/29/21 04/29/21 History Metoprolol Tartrate [Lopressor] 50 mg PO BID 04/29/21 04/29/21 History Levothyroxine Sodium [Synthroid] 137 mcg PO DAILY 04/30/21 04/30/21 History lisinopriL [Zestril] 20 mg PO HS 04/30/21 04/30/21 History Allergies Allergy/AdvReac Type Severity Reaction Status Date / Time sulfamethoxazole Allergy Intermediate Rash/Hives Verified 04/29/21 10:35 [From Bactrim] trimethoprim [From Bactrim] Allergy Intermediate Rash/Hives Verified 04/29/21 10:35 ciprofloxacin [From Cipro] Allergy Unknown Verified 04/29/21 10:35 Physical Exam Vitals: Vital Signs Temp Pulse Resp BP Pulse Ox 05/02/21 05:51 55 L 191/105 05/02/21 05:00 98.4 F 53 L 16 173/101 95 05/01/21 19:50 98.5 F 56 L 18 176/95 97 05/01/21 12:05 98.2 F 52 L 18 153/93 99 Intake and Output 05/01/21 05/02/21 05/02/21 22:59 06:59 14:59 Intake Total 1230 100 Output Total 2100 Balance -870 100 Intake: Intake, IV Titration 100 Amount Piperacillin-Tazobactam 3 100 .375 gm In Sodium Chloride 0.9% 100 ml @ 25 mls/hr IVPB Q8H [facility] Rx#: [id number] Oral 1230 Output: Urine 2100 Other: Voiding Method Urinal Urinal GENERAL DESCRIPTION: Middle-aged male lying in bed, no distress. No tachypnea or accessory muscle of respiration use. HEENT: Shows Pallor , no scleral icterus. Oral mucous membrane is dry. No pharyngeal erythema or thrush NECK: Trachea central, no thyromegaly. LUNGS: Unlabored breathing. Clear to auscultation anteriorly. No wheeze or crackle. HEART: S1, S2, regular rate and rhythm. No loud murmur ABDOMEN: Soft, no tenderness , guarding or rigidity, no organomegaly EXTREMITIES: No edema of feet. SKIN: No rash, no masses palpable. NEUROLOGICAL: The patient is awake, alert, oriented x3, mood and affect normal. Results CBC & Chem 7: 04/29/21 07:01 05/02/21 04:35 Labs: Microbiology - Last 24 Hours (Table) 04/29/21 09:26 Blood Culture - Preliminary Blood No Growth after 48 hours 04/29/21 09:26 Blood Culture - Preliminary Blood No Growth after 48 hours 04/29/21 07:01 Urine Culture - Final Urine,Voided Escherichia coli Assessment and Plan Assessment: 1-patient presented to hospital with right flank pain in this patient now with evidence of positive urine culture with ESBL E. coli he did have elevated white count but no fever concerning for possible complicated UTI with evidence of renal stones and possible pyelonephritis (1) Infection due to ESBL-producing Escherichia coli Current Visit: Yes Status: Acute Code(s): A49.8 - OTHER BACTERIAL INFECTIONS OF UNSPECIFIED SITE; Z16.12 - EXTENDED SPECTRUM BETA LACTAMASE (ESBL) RESISTANCE SNOMED Code(s): 591927053 (2) UTI (urinary tract infection) Current Visit: Yes Status: Acute Code(s): N39.0 - URINARY TRACT INFECTION, SITE NOT SPECIFIED SNOMED Code(s): 96845017 Plan: 1-discontinue Zosyn 2-patient restarted on Invanz 1 g daily 3-patient will need midline and outpatient antibiotic therapy with Invanz We will follow on clinical condition and cultures to further adjust medication if needed Thank you for this consultation we will follow the patient along with you Time with Patient: Greater than 30
[2021-05-03] MEDS: LEVOTHYROXINE 137 MCG TAB PO SCH (06:13)
[2021-05-03 07:32] LABS: African American GFR (CKD) 63 (>60 ml/min/1.73 sqM); Anion Gap 4 mmol/L; Blood Urea Nitrogen 18 mg/dL (9-20); Carbon Dioxide 30 mmol/L (22-30); Chloride 103 mmol/L (98-107); Glucose 97 mg/dL (74-99); Magnesium 1.9 mg/dL (1.6-2.3); Non-African American GFR(CKD) 55 (>60 ml/min/1.73 sqM); Potassium 4.3 mmol/L (3.5-5.1); Sodium 137 mmol/L (137-145)
[2021-05-03] MEDS: ERTAPENEM 1 GM in SODIUM CHLORIDE 0.9% 50 ML IVPB SCH (08:33)
[2021-05-03] MEDS: allopurinoL 100 MG TAB PO SCH (08:35)
[2021-05-03] MEDS: amLODIPine 10 MG TAB PO SCH (08:35)
[2021-05-03] MEDS: cloNIDine HCL 0.2 MG TAB PO SCH ×3 (08:35→20:50)
[2021-05-03] MEDS: hydrALAZINE HCL 25 MG TAB PO SCH ×3 (08:35→20:50)
[2021-05-03] MEDS: SODIUM BICARBONATE TAB 650 MG TAB PO SCH (08:35)
--- NOTE | 2021-05-03 09:29 | P.PN ---
Subjective Patient is seen in follow-up for acute kidney injury. Renal function better - creatinine 1.44 today. Oral intake is good. Good urine output. No vomiting or diarrhea. Blood pressure better this morning. Vital signs are stable. General: The patient appeared well nourished and normally developed. HEENT: Head exam is unremarkable. Neck is without jugular venous distension. LUNGS: Breath sounds decreased. HEART: Rate and Rhythm are regular. ABDOMEN: Soft, no distention. EXTREMITITES: Trace edema. Objective - Vital Signs Vital signs: Vital Signs Temp 97.6 F 05/03/21 05:00 Pulse 48 L 05/03/21 05:00 Resp 18 05/03/21 05:00 BP 139/86 05/03/21 05:00 Pulse Ox 99 05/03/21 05:00 Intake & Output 05/02/21 05/03/21 05/03/21 18:59 06:59 18:59 Intake Total 100 500 Output Total 1000 375 Balance -900 125 Intake: Intake, IV Titration 100 Amount Ertapenem 1 gm In Sodium 100 Chloride 0.9% 50 ml @ 100 mls/hr IVPB DAILY [facility] Rx #:[id number] Oral 500 Output: Urine 1000 375 Other: Voiding Method Urinal Toilet Toilet Urinal Urinal # Voids 5 - Labs CBC & Chem 7: 04/29/21 07:01 05/03/21 06:34 Labs: Abnormal Lab Results - Last 24 Hours (Table) 05/02/21 05/03/21 Range/Units 04:35 06:34 Creatinine 1.8 H 1.44 H (0.6-1.5) mg/dL Est GFR (CKD-EPI)AfAm 48.4 L (60.0-200.0) Est GFR (CKD-EPI)NonAf 41.7 L (60.0-200.0) BUN/Creatinine Ratio 11.67 L (12.00-20.00) Ratio Glucose 136 H (70-110) mg/dL Microbiology - Last 24 Hours (Table) 04/29/21 09:26 Blood Culture - Preliminary Blood No Growth after 72 hours 04/29/21 09:26 Blood Culture - Preliminary Blood No Growth after 72 hours Assessment and Plan Plan: Assessment: 1. Acute kidney injury secondary to ATN secondary to infection. Creatinine was 2.05 on admission peaked at 2.93 this admission -1.44 today. No hydronephrosis noted on CAT scan. 2. Chronic kidney disease stage IIIB with baseline creatinine in the range of 1.3-1.5 secondary to nephrosclerosis. 3. UTI and acute prostatitis maintained on antibiotics. Urine culture positive for E. coli. 4. Nephrolithiasis. Urology following. 5. Hypertension with chronic kidney disease. 6. Metabolic acidosis secondary to acute kidney injury and IV fluids. Maintained on oral bicarb. Resolved. Plan: Remains off IV fluids. Encouraged oral intake. Avoid nephrotoxins. Continue to monitor renal function and urine output. Stop oral bicarb. Possible discharge home today. Follow up outpatient in 1-2 weeks.
[2021-05-03] MEDS: METOPROLOL TARTRATE 50 MG TAB PO SCH ×2 (12:24→20:50)
--- NOTE | 2021-05-03 15:40 | P.PN ---
Progress Note - Text Progress Note Date: 05/03/21 Mr. Mason states that he continues to feel better. He denies dysuria, hematuria, and flank pain. The urine culture shows >100,000 E. coli. Blood cultures are negative. He remains afebrile. The serum creatinine level has returned to baseline (1.44). From a urologic standpoint, he may be discharged home on appropriate oral antibiotics and follow-up with Dr. Koroma in 1 week. Please notify us if we can be of any further assistance.
--- NOTE | 2021-05-03 17:44 | PN ---
PROGRESS NOTE DATE OF SERVICE: 05/03/2021 REASON FOR FOLLOWUP: ESBL E coli UTI and possible pyelonephritis. INTERVAL HISTORY: The patient is afebrile. The patient is breathing comfortably. The patient's right flank pain has slightly decreased in intensity. No chest pain, shortness of breath or cough. No abdominal pain or diarrhea. PHYSICAL EXAMINATION: Blood pressure 154/94, pulse of 56, temperature 97.9, he is saturating 98% on room air. General description is a middle-aged male lying in bed in no distress. Respiratory system: Unlabored breathing, clear to auscultation anteriorly. Heart S1, S2. Regular rate and rhythm. Abdomen is soft, no tenderness. LABS: BUN of 18, creatinine 1.44. Blood culture has been negative. DIAGNOSTIC IMPRESSION AND PLAN: Patient with ESBL E coli complicated urinary tract infection. The patient has shown overall clinical improvement. Kidney function is improving. He is on Invanz. Should get Med[facility]. Plan is for another 10 days of IV Invanz and close outpatient followup. MMODL / IJN: [id number] /
--- NOTE | 2021-05-03 18:05 | P.PN ---
Progress Note - Text Progress Note Date: 05/03/21 Chief Complaint: Right lower abdominal pain History of presenting complaint: This is a pleasant 55-year-old patient of Dr. Hand. Chronic stable medical conditions include hypertension, hypothyroid and obesity, chronic kidney disease. Also multiple kidney stones-different procedures done. He follows with Dr. Koroma from urology. He believes he has calcium oxalate stones. Patient now presents with right lower quadrant pain starting 2 days ago. Denies any fever and chills. Has had some nausea and vomiting. Patient has urinary urgency. Very slight dysuria. Feels tired and rundown. Urine is orange colored. Urology consulted. Admitted with acute UTI with cystitis. Acute on chronic kidney disease.. Started on IV fluids. IV Zosyn. April 30: Getting IV antibiotics. Normal saline. Tired. Sitting up in a chair. Eating well. Worsening renal function May 01: Abdominal pain better. Feeling better. On IV antibiotics. Oral intake better. Has been out of bed May 02: Eating well. No abdominal pain. Making good urine. No fever. Creatinine coming down. Amlodipine 10 mg home dose being resumed May 03: Doing well. Good urine output. Creatinine is coming down. Home IV antibiotics and be coordinated by Dr. Parra. Oral intake code Review of systems: Was done for constitutional, cardiovascular, GI, pulmonary. relevant finding as above Active Medications Hydrocodone Bitart/Acetaminophen (Hydrocodone/Apap 5-325mg 1 Each Tab) 1 each PO Q4HR PRN PRN Reason: Moderate Pain Allopurinol (Allopurinol 100 Mg Tab) 100 mg PO DAILY [facility] Last Admin: 05/03/21 08:35 Dose: 100 mg Documented by: Amlodipine Besylate (Amlodipine 10 Mg Tab) 10 mg PO DAILY [facility] Last Admin: 05/03/21 08:35 Dose: 10 mg Documented by: Clonidine (Clonidine Hcl 0.2 Mg Tab) 0.2 mg PO TID [facility] Last Admin: 05/03/21 15:46 Dose: 0.2 mg Documented by: Cyclobenzaprine HCl (Cyclobenzaprine 10 Mg Tab) 10 mg PO TID PRN PRN Reason: Muscle Spasm Hydralazine HCl (Hydralazine Hcl 25 Mg Tab) 25 mg PO TID [facility] Last Admin: 05/03/21 15:45 Dose: 25 mg Documented by: Hydromorphone HCl (Hydromorphone 1 Mg/Ml 1 Ml Syringe) 1 mg IVP Q3HR PRN PRN Reason: Severe Pain Hydromorphone HCl (Hydromorphone 0.5 Mg/0.5 Ml Syringe) 0.5 mg IVP Q3HR PRN PRN Reason: Moderate Pain Last Admin: 04/29/21 13:41 Dose: 0.5 mg Documented by: Ertapenem 1 gm/ Sodium (Chloride) 50 mls @ 100 mls/hr IVPB DAILY [facility]; Protocol Last Admin: 05/03/21 08:33 Dose: 100 mls/hr Documented by: Levothyroxine Sodium (Levothyroxine 137 Mcg Tab) 137 mcg PO DAILY@0630 [facility] Last Admin: 05/03/21 06:13 Dose: 137 mcg Documented by: Metoprolol Tartrate (Metoprolol Tartrate 50 Mg Tab) 50 mg PO BID [facility] Last Admin: 05/03/21 12:24 Dose: Not Given Documented by: Naloxone HCl (Naloxone 0.4 Mg/Ml 1 Ml Vial) 0.2 mg IV Q2M PRN PRN Reason: Opioid Reversal Ondansetron HCl (Ondansetron 4 Mg/2 Ml Vial) 4 mg IVP Q8HR PRN PRN Reason: Nausea And Vomiting Past medical history: Hypertension, chronic kidney disease, hypothyroid, kidney stones, history of gout Social history: Does not smoke. Alcohol occasionally. 17-year-old son lives with him. on disability. Physical examination: VITAL SIGNS: 97.7, 56, 19, 154/94, 98% room air GENERAL: Sitting up in a chair, awake, comfortable EYES: Pupils equal. Conjunctiva normal. HEENT: External appearance of nose and ears normal, oral cavity grossly normal. NECK: JVD not raised; masses not palpable. HEART: First and second heart sounds are normal; no edema. LUNGS: Respiratory rate normal; clear to auscultation. ABDOMEN: Soft, no tenderness, no guarding rigidity, no guarding or rigidity, liver spleen not palpable, no masses palpable. PSYCH: Alert and oriented x3; mood and affect tired INVESTIGATIONS, reviewed in the clinical context: May 03: Potassium 4.3 creatinine 1.44 May 02: Potassium 4.3 creatinine 1.8 May 01: Potassium 3.9 creatinine 2.01 [place] 19: Potassium 4.6 bicarb 19 BUN 28 creatinine 2.93 WBC 12.5 hemoglobin 16.9 platelets 228 potassium 4 creatinine 2.05 UA positive for leukoesterase, WBC Urine culture: E. coli/esbl Computed tomography scan of the abdomen pelvis without contrast: Moderate fatty infiltration through the liver. Some ascites adjacent to the spleen. Gallbla dder absent. Renal calcification. No obvious obstruction. Prominent small bowel loops within the mid abdomen. Previous labs: Creatinine 1.26 on [February 2020] Assessment and plan: -Acute UTI with cystitis, with multiple prior episodes of pyelonephritis. Culture positive for E. coli/ESBL IV fluids. IV Zosyn-changed to IV ertapenem. -Bilateral nephrolithiasis, with a history of possible oxalate stones [employer] u[facility] -Acute kidney injury, likely ATN from infection: Improving Creatinine 2.93. Down to 1.4 follow -Chronic kidney disease stage III, possibly a combination of obstructive uropathy and from kidney stones Baseline creatinine 1.26 -Morbid obesity BMI 45.8 Weight loss measures -Hypothyroid Synthroid -Essential hypertension, with chronic kidney disease , Lopressor, Catapres. Hold amlodipine for now -Nonalcoholic fatty liver disease Continue IV ertapenem. Per Dr. Parra: Midline. And home IV ertapenem. Care was discussed with the patient.
[2021-05-04] MEDS: LEVOTHYROXINE 137 MCG TAB PO SCH (05:49)
[2021-05-04 06:38] LABS: African American GFR (CKD) 67 (>60 ml/min/1.73 sqM); Anion Gap 5 mmol/L; Blood Urea Nitrogen 20 mg/dL (9-20); Calcium 8.9 mg/dL (8.4-10.2); Carbon Dioxide 31 mmol/L (22-30); Chloride 102 mmol/L (98-107); Glucose 100 mg/dL (74-99); Non-African American GFR(CKD) 58 (>60 ml/min/1.73 sqM); Potassium 4.3 mmol/L (3.5-5.1); Sodium 138 mmol/L (137-145)
[2021-05-04] MEDS: METOPROLOL TARTRATE 50 MG TAB PO SCH (09:22)
[2021-05-04] MEDS: ERTAPENEM 1 GM in SODIUM CHLORIDE 0.9% 50 ML IVPB SCH (09:22)
[2021-05-04] MEDS: allopurinoL 100 MG TAB PO SCH (09:22)
[2021-05-04] MEDS: hydrALAZINE HCL 25 MG TAB PO SCH (09:22)
[2021-05-04] MEDS: amLODIPine 10 MG TAB PO SCH (09:22)
[2021-05-04] MEDS: cloNIDine HCL 0.2 MG TAB PO SCH (09:31)
--- NOTE | 2021-05-04 11:36 | P.PN ---
Subjective Patient is seen in follow-up for acute kidney injury. Renal function better - creatinine 1.38 today. Oral intake is good. Good urine output. No vomiting or diarrhea. No changes overnight. Possibly going home today. Vital signs are stable. General: The patient appeared well nourished and normally developed. HEENT: Head exam is unremarkable. Neck is without jugular venous distension. LUNGS: Breath sounds decreased. HEART: Rate and Rhythm are regular. ABDOMEN: Soft, obese. EXTREMITITES: Trace edema. Objective - Vital Signs Vital signs: Vital Signs Temp 97.6 F 05/04/21 04:41 Pulse 46 L 05/04/21 04:41 Resp 16 05/04/21 04:41 BP 172/98 05/04/21 04:41 Pulse Ox 96 05/04/21 04:41 Intake & Output 05/03/21 05/04/21 05/04/21 18:59 06:59 18:59 Intake Total 630 Output Total 700 1000 Balance -70 -1000 Intake: Intake, IV Titration 50 Amount Ertapenem 1 gm In Sodium 50 Chloride 0.9% 50 ml @ 100 mls/hr IVPB DAILY [facility] Rx #:[id number] Oral 580 Output: Urine 700 1000 Other: Voiding Method Toilet Toilet Toilet Urinal Urinal Urinal # Voids 5 - Labs CBC & Chem 7: 04/29/21 07:01 05/04/21 05:57 Labs: Abnormal Lab Results - Last 24 Hours (Table) 05/04/21 Range/Units 05:57 Carbon Dioxide 31 H (22-30) mmol/L Creatinine 1.38 H (0.66-1.25) mg/dL Glucose 100 H (74-99) mg/dL Microbiology - Last 24 Hours (Table) 04/29/21 09:26 Blood Culture - Preliminary Blood No Growth after 96 hours 04/29/21 09:26 Blood Culture - Preliminary Blood No Growth after 96 hours Assessment and Plan Plan: Assessment: 1. Acute kidney injury secondary to ATN secondary to infection. Creatinine was 2.05 on admission peaked at 2.93 this admission -1.38 today. No hydronephrosis noted on CAT scan. 2. Chronic kidney disease stage IIIB with baseline creatinine in the range of 1.3-1.5 secondary to nephrosclerosis. 3. UTI and acute prostatitis maintained on antibiotics. Urine culture positive for E. coli. 4. Nephrolithiasis. Urology following. 5. Hypertension with chronic kidney disease. 6. Metabolic acidosis secondary to acute kidney injury and IV fluids. Resolved. Plan: Remains off IV fluids. Encouraged oral intake. Avoid nephrotoxins. Continue to monitor renal function and urine output. Possible discharge home today. Follow up outpatient in 1-2 weeks.
[2021-05-04 12:12] VITALS: PULSE 52; RESP 17; TEMP 97.9
[2021-05-04] MEDS ORDERED: hydrALAZINE HCL 25 MG TAB PO STA (12:31)
[2021-05-04 12:32] VITALS: BP 144/86
--- NOTE | 2021-05-04 13:49 | PN ---
PROGRESS NOTE DATE OF SERVICE: 05/04/2021 REASON FOR FOLLOWUP: ESBL E coli urinary tract infection. INTERVAL HISTORY: The patient is afebrile. The patient is breathing comfortably. The patient's right flank pain resolved. No chest pain, shortness of breath or cough. No abdominal pain, no diarrhea. PHYSICAL EXAMINATION: Blood pressure 144/86, pulse of 52, temperature 97.9. He is 98% on room air. General description is a middle-aged male lying in bed in no distress. Respiratory system: Unlabored breathing, clear to auscultation anteriorly. Heart S1, S2. Regular rate and rhythm. Abdomen soft, no tenderness. LABS: BUN of 20, creatinine 1.38. Blood culture has been negative. DIAGNOSTIC IMPRESSION AND PLAN: Patient has ESBL E. coli urinary tract infection with no evidence of any bacteremia. He will continue with IV Invanz for about 10 days to finish a course of therapy and close outpatient followup. MMODL / IJN: [id number] /
[2021-05-04 14:12] VITALS: BMI 45.8
--- NOTE | 2021-05-04 14:57 | P.DS ---
Providers Date of admission: 04/29/21 09:20 Expected date of discharge: 05/04/21 Attending physician: Mukesh Kenyon Consults: 04/29/21 11:29 Consult Physician Routine Consulting Provider: Cassandra Gonzalez Consult Reason/Comments: tanmay / ckd Do you want consulting provider notified?: Yes 04/29/21 15:05 Consult Physician Routine Consulting Provider: Altaf Phelps Consult Reason/Comments: kidney stones abd pain Do you want consulting provider notified?: Yes 05/01/21 23:13 Consult Physician Routine Consulting Provider: César Austin Consult Reason/Comments: E. coli/ESBL Do you want consulting provider notified?: Yes Primary care physician: [facility] Course: Chief Complaint: Right lower abdominal pain History of presenting complaint: This is a pleasant 55-year-old patient of Dr. Hand. Chronic stable medical conditions include hypertension, hypothyroid and obesity, chronic kidney disease. Also multiple kidney stones-different procedures done. He follows with Dr. Koroma from urology. He believes he has calcium oxalate stones. Patient now presents with right lower quadrant pain starting 2 days ago. Denies any fever and chills. Has had some nausea and vomiting. Patient has urinary urgency. Very slight dysuria. Feels tired and rundown. Urine is orange colored. Urology consulted. Admitted with acute UTI with cystitis. Acute on chronic kidney disease.. Started on IV fluids. IV Zosyn. April 30: Getting IV antibiotics. Normal saline. Tired. Sitting up in a chair. Eating well. Worsening renal function May 01: Abdominal pain better. Feeling better. On IV antibiotics. Oral intake better. Has been out of bed May 02: Eating well. No abdominal pain. Making good urine. No fever. Creatinine coming down. Amlodipine 10 mg home dose being resumed May 03: Doing well. Good urine output. Creatinine is coming down. Home IV antibiotics and be coordinated by Dr. Parra. Oral intake good May 04: Patient doing well. Good oral intake. Midline ordered. Will be going home with IV Invanz for 10 days. Care was discussed with the patient. Communicated with gearcase assembler and the nurse. Dose of hydralazine increased to 50 mg 3 times a day. Discussed with the patient Discussion and discharge planning more than 35 minutes Consultation: Dr. Austin from ID Dr. Andino from urology Dr. Resendiz from nephrology Past medical history: Hypertension, chronic kidney disease, hypothyroid, kidney stones, history of gout Social history: Does not smoke. Alcohol occasionally. 17-year-old son lives with him. on disability. Physical examination: VITAL SIGNS: 97.9, 52, 17, 144/86, 98% room air GENERAL: Sitting up, comfortable EYES: Pupils equal. Conjunctiva normal. HEENT: External appearance of nose and ears normal, oral cavity grossly normal. NECK: JVD not raised; masses not palpable. HEART: First and second heart sounds are normal; no edema. LUNGS: Respiratory rate normal; clear to auscultation. ABDOMEN: Soft, no tenderness, no guarding rigidity, no guarding or rigidity, liver spleen not palpable, no masses palpable. PSYCH: Alert and oriented x3; mood and affect tired INVESTIGATIONS, reviewed in the clinical context: May 04: Potassium 4.3 creatinine 1.38 May 03: Potassium 4.3 creatinine 1.44 May 02: Potassium 4.3 creatinine 1.8 May 01: Potassium 3.9 creatinine 2.01 April 30: Potassium 4.6 bicarb 19 BUN 28 creatinine 2.93 WBC 12.5 hemoglobin 16.9 platelets 228 potassium 4 creatinine 2.05 UA positive for leukoesterase, WBC Urine culture: E. coli/esbl Computed tomography scan of the abdomen pelvis without contrast: Moderate fatty infiltration through the liver. Some ascites adjacent to the spleen. Gallbladder absent. Renal calcification. No obvious obstruction. Prominent small bowel loops within the mid abdomen. Previous labs: Creatinine 1.26 on [February 2020] Assessment and plan: -Acute UTI with cystitis, with multiple prior episodes of pyelonephritis. Cu lture positive for E. coli/ESBL IV fluids. IV Zosyn-changed to IV ertapenem-for 10 more days. -Bilateral nephrolithiasis, with a history of possible oxalate stones Follow with neurology -Acute kidney injury, likely ATN from infection: Improving Creatinine 2.93. Down to 1.4 -Chronic kidney disease stage III, possibly a combination of obstructive uropathy and from kidney stones Baseline creatinine 1.26 -Morbid obesity BMI 45.8 Weight loss measures -Hypothyroid Synthroid -Essential hypertension, with chronic kidney disease , Lopressor, Catapres. Amlodipine. Hydralazine added. -Nonalcoholic fatty liver disease Disposition: Home Patient Condition at Discharge: Fair Plan - Discharge Summary Discharge Rx Participant: No New Discharge Prescriptions: New hydrALAZINE HCL [Apresoline] 50 mg PO TID #90 tab Ertapenem [INVanz] 1 gm IVPB DAILY #10 vial Continue amLODIPine [Norvasc] 10 mg PO DAILY #30 tab cloNIDine HCL [Catapres] 0.2 mg PO TID HYDROcodone/APAP 5-325MG [[place] 5-325] 1 - 2 tab PO Q4HR PRN PRN Reason: Pain Metoprolol Tartrate [Lopressor] 50 mg PO BID Levothyroxine Sodium [Synthroid] 137 mcg PO DAILY Cyclobenzaprine [Flexeril] 10 mg PO TID PRN PRN Reason: Muscle Spasm Allopurinol [Zyloprim] 100 mg PO DAILY Discontinued lisinopriL [Zestril] 20 mg PO HS Discharge Medication List amLODIPine [Norvasc] 10 mg PO DAILY #30 tab 09/15/19 [Rx] HYDROcodone/APAP 5-325MG [[place] 5-325] 1 - 2 tab PO Q4HR PRN 02/14/20 [History] cloNIDine HCL [Catapres] 0.2 mg PO TID 02/14/20 [History] Allopurinol [Zyloprim] 100 mg PO DAILY 04/29/21 [History] Cyclobenzaprine [Flexeril] 10 mg PO TID PRN 04/29/21 [History] Metoprolol Tartrate [Lopressor] 50 mg PO BID 04/29/21 [History] Levothyroxine Sodium [Synthroid] 137 mcg PO DAILY 04/30/21 [History] Ertapenem [INVanz] 1 gm IVPB DAILY #10 vial 05/04/21 [Rx] hydrALAZINE HCL [Apresoline] 50 mg PO TID #90 tab 05/04/21 [Rx] Follow up Appointment(s)/Referral(s): Torrey Hand MD [Primary Care Provider] - 05/11/21 10:00 am [facility], [NON-STAFF] - 1 Week [facility], [REFERRING] - 1 Week Raymundo Koroma MD [STAFF PHYSICIAN] - 05/10/21 10:20 am Patient Instructions/Handouts: Hydralazine (By mouth), Ertapenem (By injection), Kidney Stones (DC), Extended Spectrum Beta Lactamase (GEN) Activity/Diet/Wound Care/Special Instructions: cbc/cmp - [address] Austin, no follow-up with him is necessary. Patient may follow-up with Urology.
== END 2021-05-04 14:50 | disposition home health service (06) | DRG 689 ==
LOC: EC 06:26 → 5NMEDONC 09:20
PROVIDERS: ADMIT Hospitalist; ATTEND Hospitalist
PROC: 05HF33Z Insertion of Infusion Device into Left Cephalic Vein, Percutaneous Approach (ICD-10-PCS; principal; 2021-05-04 12:55)
DX: N30.00 Acute cystitis without hematuria (principal); N17.0 Acute kidney failure with tubular necrosis; N41.0 Acute prostatitis; R18.8 Other ascites; E87.2 Acidosis; Z68.42 Body mass index [BMI] 45.0-49.9, adult; Z16.12 Extended spectrum beta lactamase (ESBL) resistance; Z16.24 Resistance to multiple antibiotics; N18.32 Chronic kidney disease, stage 3b; E66.01 Morbid (severe) obesity due to excess calories; K76.0 Fatty (change of) liver, not elsewhere classified; N20.0 Calculus of kidney; B96.20 Unspecified Escherichia coli [E. coli] as the cause of diseases classified elsewhere; N13.9 Obstructive and reflux uropathy, unspecified; I12.9 Hypertensive chronic kidney disease with stage 1 through stage 4 chronic kidney disease, or unspecified chronic kidney disease; E03.9 Hypothyroidism, unspecified; M10.9 Gout, unspecified; Z79.890 Hormone replacement therapy; Z79.899 Other long term (current) drug therapy; Z87.442 Personal history of urinary calculi; Z87.440 Personal history of urinary (tract) infections; Z86.19 Personal history of other infectious and parasitic diseases; Z90.89 Acquired absence of other organs; Z87.19 Personal history of other diseases of the digestive system; Z98.890 Other specified postprocedural states; Z71.3 Dietary counseling and surveillance; Z88.1 Allergy status to other antibiotic agents; Z88.2 Allergy status to sulfonamides; Z83.3 Family history of diabetes mellitus; Z80.0 Family history of malignant neoplasm of digestive organs; Z84.1 Family history of disorders of kidney and ureter
CPT/HCPCS: 36410; 36415; 74018; 74176; 76937; 80048; 80053; 81001; 83690; 83735; 85025; 87040; 87077; 87086; 87186; 96361; 96374; 96375; 99285

== ENCOUNTER → 2021-05-23 | Outpatient (CLI) | payer MEDICARE, OTHER ==
[2021-05-23 11:18] LABS: Basophils # (A) 0.1 k/uL (0-0.2); Basophils % (A) 1 %; Eosinophils # (A) 0.3 k/uL (0-0.7); Eosinophils % (A) 4 %; HCT 48.6 % (39.0-53.0); HGB 15.8 gm/dL (13.0-17.5); Lymphocytes # (A) 1.5 k/uL (1.0-4.8); Lymphocytes % (A) 26 %; MCH 29.9 pg (25.0-35.0); MCHC 32.4 g/dL (31.0-37.0); MCV 92.2 fL (80.0-100.0); Mean Platelet Volume 8.2; Monocytes # (A) 0.2 k/uL (0-1.0); Monocytes % (A) 4 %; Neutrophils # (A) 3.8 k/uL (1.3-7.7); Neutrophils % (A) 64 %; Platelet Count 133 k/uL (150-450); RBC 5.27 m/uL (4.30-5.90); RDW 14.7 % (11.5-15.5); WBC 5.9 k/uL (3.8-10.6)
[2021-05-23 11:25] LABS: Appearance,Urine Clear (Clear); Bilirubin,Urine Negative (Negative); Blood,Urine Trace (Negative); Color,Urine Light Yellow; Glucose,Urine (UA) Negative (Negative); Ketones,Urine Negative (Negative); Leukocyte Esterase,Urine Small (Negative); Mucus,Urine Occasional /hpf; Nitrite,Urine Negative (Negative); PH, Urine 6.5 (5.0-8.0); Protein,Urine 1+ (Negative); RBC,Urine 5 /hpf (0-5); Specific Gravity,Urine 1.011 (1.001-1.035); Urobilinogen,Urine <2.0 mg/dL (<2.0); WBC,Urine 10 /hpf (0-5)
[2021-05-23 11:30] LABS: Calcium 9.2 mg/dL (8.4-10.2); Potassium 4.4 mmol/L (3.5-5.1)
== END | disposition home or self-care (01) ==
LOC: LABPAT 10:30
PROVIDERS: ATTEND Urology
DX: Z01.812 Encounter for preprocedural laboratory examination (principal); N20.0 Calculus of kidney; R31.29 Other microscopic hematuria
CPT/HCPCS: 36415; 80048; 81001; 85025; 87086

== ENCOUNTER → 2021-05-30 | Day surgery (SDC) | payer MEDICARE, OTHER ==
[2021-05-28 09:47] VITALS: BMI 45.9
--- NOTE | 2021-05-29 18:40 | P.GSHP ---
History of Present Illness H&P Date: 05/29/21 55 yo male with a history of stones who has a painful 1 cm renal pelvic stone and a 5 mm upper pole stone on the right . The patient was given treatment options and comes for a right ureteroscopy with laser lithotripsy and stent placement. the risks have been discussed, - Constitutional Constitutional: Denies chills, Denies fever - EENT Eyes: denies blurred vision, denies pain Ears, nose, mouth and throat: Denies headache, Denies sore throat - Cardiovascular Cardiovascular: Denies chest pain, Denies shortness of breath - Respiratory Respiratory: Denies cough, Denies 7 - Gastrointestinal Gastrointestinal: Denies abdominal pain, Denies diarrhea, Denies nausea, Denies vomiting - Genitourinary (Female) Genitourinary: Denies dysuria, Denies hematuria - Genitourinary (Male) Genitourinary: Denies dysuria, Denies hematuria - Musculoskeletal Musculoskeletal: Denies myalgias - Integumentary Integumentary: Denies pruritus, Denies rash - Neurological Neurological: Denies numbness, Denies weakness - Psychiatric Psychiatric: Denies anxiety, Denies depression - Endocrine Endocrine: Denies fatigue, Denies weight change Past Medical History Past Medical History: Hypertension, Thyroid Disorder Additional Past Medical History / Comment(s): Kidney Stones and UTI's. Gout History of Any Multi-Drug Resistant Organisms: ESBL Date of last positivie culture/infection: 04/29/21 MDRO Source:: Urine ESBL Past Surgical History: Adenoidectomy, Ear Surgery, Hernia Repair, Orthopedic Surgery Additional Past Surgical History / Comment(s): Cysto Lithotripsy with stents. Bilateral leg surg. as a child Past Anesthesia/Blood Transfusion Reactions: No Reported Reaction Past Psychological History: No Psychological Hx Reported Smoking Status: Never smoker Past Alcohol Use History: None Reported Past Drug Use History: None Reported - Past Family History Father Family Medical History: Cancer, Diabetes Mellitus Additional Family Medical History / Comment(s): LIVER &COLON CANCER. KIDNEY STONES Mother History Unknown: Yes Family Medical History: No Reported History Additional Family Medical History / Comment(s): MOM IS HEALTHY SHE STATES NO MEDICAL PROBLEMS Medications and Allergies Home Medications Medication Instructions Recorded Confirmed Type amLODIPine [Norvasc] 10 mg PO DAILY #30 tab 09/15/19 05/28/21 Rx cloNIDine HCL [Catapres] 0.2 mg PO TID 02/14/20 05/28/21 History Allopurinol [Zyloprim] 100 mg PO DAILY 04/29/21 05/28/21 History Metoprolol Tartrate [Lopressor] 50 mg PO BID 04/29/21 05/28/21 History Levothyroxine Sodium [Synthroid] 137 mcg PO DAILY 04/30/21 05/28/21 History hydrALAZINE HCL [Apresoline] 50 mg PO TID #90 tab 05/04/21 05/28/21 Rx Allergies Allergy/AdvReac Type Severity Reaction Status Date / Time sulfamethoxazole Allergy Intermediate Rash/Hives Verified 05/28/21 09:37 [From Bactrim] trimethoprim [From Bactrim] Allergy Intermediate Rash/Hives Verified 05/28/21 09:37 ciprofloxacin [From Cipro] Allergy Unknown Verified 05/28/21 09:37 Surgical - Exam - General well developed, well nourished, obese - Eyes PERRL - ENT no hearing loss - Neck trachea midline - Respiratory normal expansion, normal respiratory effort - Cardiovascular Rhythm: regular - Abdomen Abdomen: soft, non tender - Genitourinary normal penis with no external lesions, testicles present - Integumentary no rash, no growths - Neurologic normal coordination, normal sensation - Musculoskeletal normal gait, normal posture - Psychiatric oriented to time, oriented to person, oriented to place, speech is normal, memory intact Results - Imaging Abdominal x-ray: report reviewed, image reviewed CT scan - abdomen: report reviewed, image reviewed CT scan - pelvis: report reviewed, image reviewed Assessment and Plan Assessment: Impression: Painful right renal stones Plan: right ureteroscopy with laser lithotripsy
[~2021-05-30] MED LIST changes: -DEXAMETHASONE SOD PHOSPHATE 10 MG/ML 1 ML VIAL IV ONE; +DEXAMETHASONE SOD PHOSPHATE 4 MG/ML 1 ML VIAL IV ONE; -GENTAMICIN 140 MG in SODIUM CHLORIDE 0.9% 100 ML IVPB ONE; +GENTAMICIN 240 MG in SODIUM CHLORIDE 0.9% 100 ML IVPB ONE; +HYDROmorphone 0.5 MG/0.5 ML SYRINGE IVP PRN; +LIDOCAINE 1% (10MG/ML) FOR IV START INTRADERMA PRN; -LIDOCAINE 1% 20 ML VIAL (10MG/ML) FOR IV START INTRADERMA PRN; -METOCLOPRAMIDE 5 MG/ML 2 ML VIAL IVP PRN; +SCOPOLAMINE 1.5MG/72HR PATCH TRANSDERM ONE
--- NOTE | 2021-05-30 09:50 | P.PN ---
Progress Note - Text Progress Note Date: 05/30/21 The patient was scheduled for a right ureteroscopy laser lithotripsy to a larger right renal pelvic stone and upper calyceal stone. Ideally would be better served with a percutaneous nephrostolithotomy. He was my impression that he wanted ureteroscopy rather than a percutaneous nephrostolithotomy balloon we discussed that this morning he actually would prefer the percutaneous procedure because he does not want a double-J catheter. The patient's pain is tolerable thus I will cancel be ureteroscopy and rescheduled for a percutaneous procedure at a later date as a radiologist is not available to do the percutaneous procedure this morning the patient understands and agrees.
--- NOTE | 2021-05-30 10:13 | XR ---
EXAMINATION TYPE: XR KUB DATE OF EXAM: 05/30/2021 HISTORY: Pain Comparison: None.Single KUB is submitted for interpretation. Findings: Right renal calculi: Multiple right-sided renal calculi seen in the lowest overlies the region of the right renal pelvis measures 1.4 cm in greatest dimension. Right ureteral calculi: None Visualized. Left renal calculi: 5.6 mm calculus overlying the lower pole of the left kidney. Left ureteral calculi: None Visualized. Pelvic calcifications: None Visualized. Bowel gas pattern is unremarkable. No free air. No mass effects. IMPRESSION: 1. As above
== END ==
LOC: OR 09:09
PROVIDERS: ATTEND Urology
DX: N20.0 Calculus of kidney (principal); Z53.8 Procedure and treatment not carried out for other reasons; R10.9 Unspecified abdominal pain
CPT/HCPCS: 74018

== ENCOUNTER → 2021-06-12 | Outpatient (CLI) | payer MEDICARE, OTHER ==
[2021-06-12 14:12] LABS: Basophils % (A) 0 %; Eosinophils # (A) 0.2 k/uL (0-0.7); Eosinophils % (A) 3 %; HCT 49.5 % (39.0-53.0); HGB 15.6 gm/dL (13.0-17.5); Lymphocytes # (A) 1.3 k/uL (1.0-4.8); Lymphocytes % (A) 19 %; MCH 29.3 pg (25.0-35.0); MCHC 31.5 g/dL (31.0-37.0); MCV 93.1 fL (80.0-100.0); Mean Platelet Volume 7.8; Monocytes # (A) 0.3 k/uL (0-1.0); Monocytes % (A) 4 %; Neutrophils # (A) 4.7 k/uL (1.3-7.7); Neutrophils % (A) 72 %; Platelet Count 140 k/uL (150-450); RBC 5.32 m/uL (4.30-5.90); RDW 15.9 % (11.5-15.5); WBC 6.5 k/uL (3.8-10.6)
[2021-06-12 14:21] LABS: Amorphous Sediment,Urine Rare /hpf; Appearance,Urine Cloudy (Clear); Bacteria,Urine Many /hpf; Bilirubin,Urine Negative (Negative); Blood,Urine Small (Negative); Color,Urine Yellow; Glucose,Urine (UA) Negative (Negative); Ketones,Urine Negative (Negative); Leukocyte Esterase,Urine Large (Negative); Mucus,Urine Few /hpf; Nitrite,Urine Positive (Negative); PH, Urine 5.5 (5.0-8.0); Protein,Urine 1+ (Negative); RBC,Urine 11 /hpf (0-5); Specific Gravity,Urine 1.017 (1.001-1.035); Squamous Epithelial Cell,Urine 4 /hpf (0-4); Urobilinogen,Urine <2.0 mg/dL (<2.0); WBC,Urine >182 /hpf (0-5)
[2021-06-12 14:24] LABS: Albumin 4.4 g/dL (3.5-5.0); Calcium 9.1 mg/dL (8.4-10.2); Potassium 3.8 mmol/L (3.5-5.1); Total Bilirubin 0.9 mg/dL (0.2-1.3); Total Protein 7.4 g/dL (6.3-8.2)
== END | disposition home or self-care (01) ==
LOC: LABPAT 12:58
PROVIDERS: ATTEND Urology
DX: Z01.818 Encounter for other preprocedural examination (principal); N20.0 Calculus of kidney; I45.19 Other right bundle-branch block; R94.31 Abnormal electrocardiogram [ECG] [EKG]; I10 Essential (primary) hypertension; R31.29 Other microscopic hematuria
CPT/HCPCS: 80053; 81001; 85025; 87077; 87086; 87186; 93005

== ENCOUNTER 2021-06-19 11:09 | Observation (INO) | payer MEDICARE, OTHER ==
[2021-06-12 11:25] VITALS: BMI 45.9
--- NOTE | 2021-06-18 19:28 | P.GSHP ---
History of Present Illness H&P Date: 06/18/21 55 yo male with large right renal stones > 2 cm in the right renal pelvis and mid pole calyx who comes for a right pcnl. The risks and complications including failure, infection bleeding pain , injury to the kidney, adjacent organs among others have been explained understood and accepted - Constitutional Constitutional: Denies chills, Denies fever - EENT Eyes: denies blurred vision, denies pain Ears, nose, mouth and throat: Denies headache, Denies sore throat - Cardiovascular Cardiovascular: Denies chest pain, Denies shortness of breath - Respiratory Respiratory: Denies cough, Denies 7 - Gastrointestinal Gastrointestinal: Denies abdominal pain, Denies diarrhea, Denies nausea, Denies vomiting - Genitourinary (Female) Genitourinary: Denies dysuria, Denies hematuria - Genitourinary (Male) Genitourinary: Denies dysuria, Denies hematuria - Musculoskeletal Musculoskeletal: Denies myalgias - Integumentary Integumentary: Denies pruritus, Denies rash - Neurological Neurological: Denies numbness, Denies weakness - Psychiatric Psychiatric: Denies anxiety, Denies depression - Endocrine Endocrine: Denies fatigue, Denies weight change Past Medical History Past Medical History: Hypertension, Renal Disease, Thyroid Disorder Additional Past Medical History / Comment(s): Kidney stones, gout, UTI. History of Any Multi-Drug Resistant Organisms: ESBL Date of last positivie culture/infection: 04/29/21 MDRO Source:: Urine ESBL Past Surgical History: Adenoidectomy, Ear Surgery, Hernia Repair, Orthopedic Surgery Additional Past Surgical History / Comment(s): lithotripsy,. recent cystoscopy with rt double j tube placement . BILAT LEG SURGERY CHILD AND STRETCHING OF ACHILLES TENDONS X 3 Past Anesthesia/Blood Transfusion Reactions: Motion Sickness Smoking Status: Never smoker - Past Family History Father Family Medical History: Cancer, Diabetes Mellitus Additional Family Medical History / Comment(s): LIVER &COLON CANCER. KIDNEY STONES Mother History Unknown: Yes Family Medical History: No Reported History Additional Family Medical History / Comment(s): MOM IS HEALTHY SHE STATES NO MEDICAL PROBLEMS Medications and Allergies Home Medications Medication Instructions Recorded Confirmed Type amLODIPine [Norvasc] 10 mg PO DAILY #30 tab 09/15/19 06/12/21 Rx cloNIDine HCL [Catapres] 0.2 mg PO TID 02/14/20 06/12/21 History Allopurinol [Zyloprim] 100 mg PO DAILY 04/29/21 06/12/21 History Metoprolol Tartrate [Lopressor] 50 mg PO BID 04/29/21 06/12/21 History Levothyroxine Sodium [Synthroid] 137 mcg PO DAILY 04/30/21 06/12/21 History hydrALAZINE HCL [Apresoline] 50 mg PO TID #90 tab 05/04/21 06/12/21 Rx Allergies Allergy/AdvReac Type Severity Reaction Status Date / Time sulfamethoxazole Allergy Intermediate Rash/Hives Verified 06/12/21 11:13 [From Bactrim] trimethoprim [From Bactrim] Allergy Intermediate Rash/Hives Verified 06/12/21 11:13 ciprofloxacin [From Cipro] Allergy Unknown Verified 06/12/21 11:13 Surgical - Exam - General well developed, well nourished, obese - Eyes PERRL - ENT no hearing loss - Neck trachea midline - Respiratory normal expansion, normal respiratory effort - Cardiovascular Rhythm: regular - Abdomen Abdomen: soft, non tender - Genitourinary normal penis with no external lesions, testicles present - Musculoskeletal normal posture - Psychiatric oriented to time, oriented to person, oriented to place, speech is normal, memory intact Results - Imaging Abdominal x-ray: report reviewed, image reviewed CT scan - abdomen: report reviewed, image reviewed CT scan - pelvis: report reviewed Assessment and Plan Assessment: Impression: Right renal stones large, dm, htn obesity Plan: Pcnl right
[~2021-06-19 11:09] MED LIST changes: -AMPICILLIN 1,000 MG in SODIUM CHLORIDE 0.9% 50 ML IVPB ONE; -GENTAMICIN 240 MG in SODIUM CHLORIDE 0.9% 100 ML IVPB ONE; -LACTATED RINGERS 1,000 ML IV SCH; +ONDANSETRON 4 MG/2 ML VIAL IVP ONE
--- NOTE | 2021-06-19 12:09 | XR ---
EXAMINATION TYPE: XR KUB DATE OF EXAM: 06/19/2021 COMPARISON: 05/30/2021 INDICATION: Renal stones TECHNIQUE: Single view abdomen frontal projection FINDINGS: There is a normal bowel gas pattern. Psoas margins are normal. No organomegaly is present. There is a 1.5 cm calcification in the mid right kidney level. These may be within the renal pelvis.. Additional smaller calcifications are at the inferior pole right kidney. Left renal stones are not i dentified on the current exam. IMPRESSION: 1. Right-sided renal/ureteral stones again identified.
[2021-06-19] MEDS: LACTATED RINGERS 1,000 ML IV SCH (12:17)
[2021-06-19] MEDS ORDERED: fentaNYL (PF) 50 MCG/ML 2 ML AMP ONE (13:02)
[2021-06-19] MEDS ORDERED: HYDROmorphone (PF) 1 MG/ML ONE (13:02)
[2021-06-19] MEDS ORDERED: MIDAZOLAM 2 MG/2 ML VIAL ONE (13:02)
[2021-06-19] MEDS ORDERED: VECURONIUM 10 MG VIAL IV ONE (13:02)
[2021-06-19] MEDS ORDERED: LIDOCAINE 1% INJ 10MG/ML (20 ML MDV) ONE (13:02)
[2021-06-19] MEDS ORDERED: NEOSTIGMINE 1 MG/ML 10 ML VIAL ONE (13:02)
[2021-06-19] MEDS ORDERED: PHENYLEPHRINE-0.9% NACL SYG 1,000 MCG/10 ML SYRINGE ONE (13:02)
[2021-06-19] MEDS ORDERED: ePHEDrine SULFATE/0.9% NACL/PF 50 MG/5 ML SYRINGE IV ONE (13:02)
[2021-06-19] MEDS ORDERED: PROPOFOL 10 MG/ML 20 ML VIAL IV ONE (13:02)
[2021-06-19] MEDS ORDERED: SUCCINYLCHOLINE CHLORIDE VIAL 200 MG/10 ML VIAL IV ONE (13:02)
[2021-06-19] MEDS ORDERED: GLYCOPYRROLATE 0.2 MG/ML 2 ML VIAL ONE (13:02)
[2021-06-19] MEDS ORDERED: IOPAMIDOL-370 50ML BTL INJ ONE (13:51)
[2021-06-19] MEDS ORDERED: MAG HYDROX/AL HYDROX/SIMETH 30 ML CUP PO PRN (14:55)
[2021-06-19] MEDS ORDERED: ACETAMINOPHEN TAB 325 MG TAB PO PRN (14:55)
[2021-06-19] MEDS ORDERED: ONDANSETRON 4 MG/2 ML VIAL IVP PRN (14:55)
[2021-06-19] MEDS ORDERED: NALOXONE 0.4 MG/ML 1 ML VIAL IV PRN (14:56)
--- NOTE | 2021-06-19 15:01 | P.OP ---
Date of Procedure: 06/19/21 Preoperative Diagnosis: Renal calculi Postoperative Diagnosis: Same Procedure(s) Performed: Cystoscopy, placement of 5-Armenian occluding balloon catheter right, right percutaneous nephrostomy (Dr. stewart), right percutaneous nephrostolithotomy at ultrasound, placement of 10 J nephrostomy, right Anesthesia: AVI Surgeon: Raymundo Koroma Estimated Blood Loss (ml): 50 Pathology: other (Stone) Condition: stable Disposition: PACU Indications for Procedure: The patient is 55. He is morbidly obese. He has recurrent LC and urolithiasis. He has been encouraged to follow diet and he has not. He has a 16 mm right renal pelvic stone +2 satellite stones each about 6-7 mm in the right middle pole calyx. We were going to do ureteroscopy but however he declines that. He comes for right percutaneous nephrostolithotomy, right Description of Procedure: Patient is brought to the operating suite. He is given a general endotracheal anesthesia on the transport gurney. Rolls were placed under his hips and his placed in a frog position with a sterile prep and drape. Cystoscopy a Foroblique lens and 21-Armenian sheath identifies a nonobstructing prostate. The right ureteral orifice is identified and intubated with a 5-Armenian occluding balloon catheter that was passed up in the renal pelvis. The cystoscope was removed. The 16-Armenian Phelan catheters introduced into the bladder and secured to the ureteral catheter The patient is placed in a prone position with care to airways and extremities. The right flank is approached. Dr. Stewart of radiology performed percutaneous access to a right lower pole calyx between the 12th and 11th ribs. I then d ilate the tract to 30-Armenian. Due to his size the sheath is advanced all the way to the skin level. It is secured with 2 2-0 silk's. Pass the rigid scope into the collecting system remove clot. The 2 stones that were in the middle pole calyx and floated into the collecting system and removed with the grasping forceps. The larger 16 mm stone was then broken into smaller pieces with the ultrasonic wand. The largest fragments are removed. I then pass a flexible scope throughout the collecting system and see no remaining stone. I removed the nephroscope and passed a 10-Armenian J nephrostomy tube into the right renal pelvis. Its position is confirmed radiographically. It is secured to the skin with 2-0 silk's. It is placed to drain. The patient awake and returned recovery in good condition. Blood loss is 50 mL. He tolerated procedure well be placed in the hospital postoperatively.
[2021-06-19] MEDS ORDERED: LACTATED RINGERS 1,000 ML IV ONE (15:04)
--- NOTE | 2021-06-19 15:58 | FL ---
EXAMINATION TYPE: FL Perc Nephrostomy New Access DATE OF EXAM: 06/19/2021 COMPARISON: NONE HISTORY: Right renal calculus Procedure had been discussed with the patient by Dr. Koroma, risks, benefits, alternatives, were dis cussed and any questions were answered. Informed consent was obtained. The patient was in a semipro ne position prepped and draped on the OR table in the usual sterile fashion. Utilizing a 15 cm lengt h Chiba needle a single pass was made into a lower pole posterior calyx under fluoroscopic guidance. An 0.018 guidewire is passed through the needle and there was placement of a 6-Luxembourgish catheter sheat h system. There was conversion to a 0.035 system was performed with passage of a guidewire into the ureter utilizing a directional catheter. A second safety wire was placed. Remaining portion of pro cedure performed by . Approximately 11 minutes and 27 of fluoroscopy was provided. IMPRESSION: 1. Successful intraoperative right nephrostomy prior to nephrolithotomy.
[2021-06-19] MEDS ORDERED: HYDROmorphone PCA 10 MG/50 ML BAG IV PRN (16:00)
[2021-06-19] MEDS: cloNIDine HCL 0.2 MG TAB PO SCH ×2 (16:46→22:37)
[2021-06-19] MEDS: DEXTROSE 5%-0.45% NACL 1,000 ML IV SCH (16:46)
[2021-06-19] MEDS: hydrALAZINE HCL 50 MG TAB PO SCH ×2 (16:46→22:37)
[2021-06-19] MEDS: METOPROLOL TARTRATE 50 MG TAB PO SCH (22:37)
[2021-06-20] MEDS: DEXTROSE 5%-0.45% NACL 1,000 ML IV SCH ×2 (02:37→11:30)
[2021-06-20 03:25] VITALS: RESP 18
[2021-06-20] MEDS ORDERED: LEVOTHYROXINE 137 MCG TAB PO SCH (06:30)
[2021-06-20 07:19] VITALS: TEMP 97.7
--- NOTE | 2021-06-20 07:35 | P.DS ---
Providers Date of admission: 06/19/21 23:32 Attending physician: Raymundo Koroma Primary care physician: [facility] Course: 55-year-old male with a history of recurrent urolithiasis. The patient has a collection of right renal stones and underwent a percutaneous nephrostolithotomy 06/19/2021 without difficulty. Postoperatively did well. The urine is clearing nicely. Vital signs are stable. His pain is under control. He is tolerating a regular diet. He'll be discharged home with the nephrostomy tube. Following the office later this week for nephrostomy tube removal. Stone will be analyzed. Due to the recurrent nature the stones we have discussed follow-up and he will need further metabolic evaluation. His condition is good. Patient Condition at Discharge: Good Plan - Discharge Summary Discharge Rx Participant: Yes New Discharge Prescriptions: New HYDROcodone/APAP 5-325MG [[place] 5-325] 1 tab PO Q4HR PRN #10 tab PRN Reason: Pain Control No Action amLODIPine [Norvasc] 10 mg PO DAILY #30 tab cloNIDine HCL [Catapres] 0.2 mg PO TID Metoprolol Tartrate [Lopressor] 50 mg PO BID Levothyroxine Sodium [Synthroid] 137 mcg PO DAILY hydrALAZINE HCL [Apresoline] 50 mg PO TID #90 tab Allopurinol [Zyloprim] 100 mg PO DAILY Discharge Medication List amLODIPine [Norvasc] 10 mg PO DAILY #30 tab 09/15/19 [Rx] cloNIDine HCL [Catapres] 0.2 mg PO TID 02/14/20 [History] Allopurinol [Zyloprim] 100 mg PO DAILY 04/29/21 [History] Metoprolol Tartrate [Lopressor] 50 mg PO BID 04/29/21 [History] Levothyroxine Sodium [Synthroid] 137 mcg PO DAILY 04/30/21 [History] hydrALAZINE HCL [Apresoline] 50 mg PO TID #90 tab 05/04/21 [Rx] HYDROcodone/APAP 5-325MG [[place] 5-325] 1 tab PO Q4HR PRN #10 tab 06/20/21 [Rx] Follow up Appointment(s)/Referral(s): Raymundo Koroma MD [STAFF PHYSICIAN] - 06/22/21 Discharge Disposition: HOME SELF-CARE
[2021-06-20] MEDS: LACTATED RINGERS 1,000 ML IV SCH (08:12)
[2021-06-20] MEDS: hydrALAZINE HCL 50 MG TAB PO SCH (08:30)
[2021-06-20] MEDS: cloNIDine HCL 0.2 MG TAB PO SCH (08:30)
[2021-06-20] MEDS: METOPROLOL TARTRATE 50 MG TAB PO SCH (08:30)
[2021-06-20] MEDS ORDERED: allopurinoL 100 MG TAB PO SCH (09:00)
[2021-06-20] MEDS ORDERED: amLODIPine 10 MG TAB PO SCH (09:00)
[2021-06-20 15:02] VITALS: BP 115/65; PULSE 56
== END 2021-06-20 15:11 | disposition home or self-care (01) ==
LOC: OR 11:09 → 4SSUR 15:34 → OR 23:32 → 4SSUR 23:32
PROVIDERS: ADMIT Urology; ATTEND Urology
DX: N20.0 Calculus of kidney (principal); I10 Essential (primary) hypertension; M10.9 Gout, unspecified; E03.9 Hypothyroidism, unspecified; G47.33 Obstructive sleep apnea (adult) (pediatric); E66.01 Morbid (severe) obesity due to excess calories; Z68.42 Body mass index [BMI] 45.0-49.9, adult; Z87.442 Personal history of urinary calculi; Z79.899 Other long term (current) drug therapy; Z79.890 Hormone replacement therapy; Z88.1 Allergy status to other antibiotic agents; Z88.2 Allergy status to sulfonamides; Z87.440 Personal history of urinary (tract) infections; Z16.12 Extended spectrum beta lactamase (ESBL) resistance; Z98.890 Other specified postprocedural states; Z83.3 Family history of diabetes mellitus; Z80.0 Family history of malignant neoplasm of digestive organs; Z84.1 Family history of disorders of kidney and ureter
CPT/HCPCS: 50080; 52005; 86900; 86901; 86850; 82365; 50432; 74018; 36415; G0378; C1769 ×3; C1894; J2250; J0330; J1100; J2710; J2405; J0696; J2001; J3010; J1170 ×2; J2370; J2704; Q9967

== ENCOUNTER 2022-10-16 17:26 | Inpatient (IN) | payer MEDICARE, OTHER ==
[2022-10-16] MEDS ORDERED: NITROGLYCERIN SL TABS 0.4 MG TAB SUBLINGUAL PRN (17:34)
[2022-10-16] MEDS ORDERED: VERAPAMIL 2.5 MG/ML 2 ML AMP ONE (17:44)
[2022-10-16] MEDS ORDERED: MIDAZOLAM 2 MG/2 ML VIAL IVP ONE (17:59)
[2022-10-16] MEDS ORDERED: fentaNYL (PF) 50 MCG/1 ML VIAL IVP ONE (17:59)
[2022-10-16] MEDS ORDERED: fentaNYL (PF) 50 MCG/ML 2 ML AMP ONE (18:00)
[2022-10-16] MEDS ORDERED: HEPARIN SODIUM 1,000 UN/ML (10ML VL) ONE (18:00)
--- NOTE | 2022-10-16 18:01 | XR ---
EXAMINATION TYPE: XR chest 1V portable DATE OF EXAM: 10/16/2022 COMPARISON: 09/12/2019 HISTORY: Chest pain TECHNIQUE: Single view FINDINGS: There is no heart failure nor confluent pneumonic infiltrate. Costophrenic angles are clear . There are chest leads. IMPRESSION: No active cardiopulmonary disease. Normal heart. No significant change.
[2022-10-16] MEDS ORDERED: LIDOCAINE 1% INJ 10MG/ML (5 ML VIAL-PF) SQ ONE (18:03)
[2022-10-16] MEDS ORDERED: VERAPAMIL SYRINGE (5 MG/10 ML) INTRAARTER ONE (18:04)
[2022-10-16] MEDS: HEPARIN SODIUM 1,000 UN/ML (10ML VL) IV ONE ×4 (18:05→19:00)
[2022-10-16] MEDS ORDERED: SODIUM CHLORIDE 0.9% 1,000 ML IV ONE (18:08)
[2022-10-16] MEDS ORDERED: TICAGRELOR 90 MG TAB ONE (18:11)
[2022-10-16] MEDS ORDERED: TICAGRELOR 90 MG TAB PO ONE (18:13)
[2022-10-16] MEDS: NITROGLYCERIN 1000MCG/10ML SYRINGE INTRACORON ONE ×4 (18:14→18:37)
[2022-10-16] MEDS ORDERED: NITROGLYCERIN-D5W PMX 50 MG in DEXTROSE/WATER 1 250ML.BAG IV ONE (18:15)
[2022-10-16] MEDS ORDERED: hydrALAZINE HCL 20 MG/ML 1 ML VIAL ONE ×2 (18:26→18:39)
[2022-10-16] MEDS: hydrALAZINE HCL 20 MG/ML 1 ML VIAL IV ONE ×2 (18:27→18:37)
[2022-10-16] MEDS ORDERED: hydrALAZINE HCL 20 MG/ML 1 ML VIAL IVP ONE (18:41)
[2022-10-16] MEDS ORDERED: IOPAMIDOL-370 125ML BTL INJ ONE (18:47)
--- NOTE | 2022-10-16 19:15 | P.CRDCN ---
History of Present Illness History of present illness: HISTORY OF PRESENTING ILLNESS This is a pleasant 56-year-old with past medical history significant for hypertension, chronic kidney disease, hypothyroidism, kidney stones, obesity. Patient states he had been feeling fine up until last night when he started developing chest pain at approximately 4 AM. He initially thought it was related to gout and took some gout medication and thought it somewhat improved and therefore monitor. Chest pain worsened significantly are approximately 1 PM and therefore called EMS. Patient was found to have ST elevations on transfer and therefore STEMI alert was activated. EKG shows sinus rhythm with Q waves V1 through the [address]ations V2 through V4 as well as 1 and aVL with reciprocal ST depressions inferiorly. He denies any prior cardiac history or cardiac stents. Denies any hematochezia or melena. He does have CKD with previous creatinine 1.4. REVIEW OF SYSTEMS At the time of my exam: CONSTITUTIONAL: Denies fever or chills. CARDIOVASCULAR: +chest pain, no shortness of breath, orthopnea, PND or palpitations. RESPIRATORY: Denies cough. GASTROINTESTINAL: Denies abdominal pain, diarrhea, constipation, nausea or vomiting. MUSCULOSKELETAL: Denies myalgias. NEUROLOGIC: Denies numbness, tingling or weakness. ENDOCRINE: Denies fatigue, weight change, polydipsia or polyurina. GENITOURINARY: Denies burning, hematuria or urgency with micturation. HEMATOLOGIC: Denies history of anemia or bleeding. PHYSICAL EXAMINATION Vital signs reviewed. CONSTITUTIONAL: Patient mildly uncomfortable, morbidly obese. HEENT: Head is normocephalic. Pupils are equal, round. Sclerae anicteric. Mucous membranes of the mouth are moist. No JVD. No carotid bruit. CHEST EXAMINATION: Lungs are clear to auscultation. No chest wall tenderness is noted on palpation or with deep breathing. HEART EXAMINATION: Regular rate and rhythm. S1, S2 heard. +2/6 systolic murmur, no gallops or rub. ABDOMEN: Soft, nontender. Positive bowel sounds. EXTREMITIES: 2+ peripheral pulses, no lower extremity edema and no calf tenderness. NEUROLOGIC EXAMINATION: Patient is awake, alert and oriented x3. ASSESSMENT 1. Anterior STEMI 2. Hypertension, uncontrolled 3. Chronic kidney disease 4. Morbid obesity 5. Cardiac murmur PLAN Continue with medical therapy with aspirin, heparin, beta blockers able. Heart catheterization recommended and risks and benefits discussed with patient. Check 2-D echo. Further recommendations to follow. Past Medical History Past Medical History: Hypertension, Renal Disease, Thyroid Disorder Additional Past Medical History / Comment(s): frequent kidney stones, gout, UTI. History of Any Multi-Drug Resistant Organisms: ESBL Date of last positivie culture/infection: 07/25/21 MDRO Source:: ESBL URINE Past Surgical History: Adenoidectomy, Ear Surgery, Hernia Repair, Orthopedic Surgery Additional Past Surgical History / Comment(s): lithotripsy x18. BILAT LEG SURGERY CHILD AND STRETCHING OF ACHILLES TENDONS X 3 Past Anesthesia/Blood Transfusion Reactions: No Reported Reaction Past Psychological History: Anxiety, Depression Smoking Status: Never smoker Past Alcohol Use History: Rare Past Drug Use History: None Reported - Past Family History Father Family Medical History: Cancer, Diabetes Mellitus Additional Family Medical History / Comment(s): LIVER &COLON CANCER. KIDNEY STONES Mother History Unknown: Yes Family Medical History: No Reported History Additional Family Medical History / Comment(s): MOM IS HEALTHY SHE STATES NO MEDICAL PROBLEMS Medications and Allergies Home Medications Medication Instructions Recorded Confirmed Type amLODIPine [Norvasc] 10 mg PO DAILY #30 tab 09/15/19 06/19/21 Rx cloNIDine HCL [Catapres] 0.2 mg PO TID 02/14/20 06/12/21 History Metoprolol Tartrate [Lopressor] 50 mg PO BID 04/29/21 06/12/21 History allopurinoL [Zyloprim] 100 mg PO DAILY 04/29/21 06/12/21 History Levothyroxine Sodium [Synthroid] 137 mcg PO DAILY 04/30/21 06/12/21 History hydrALAZINE HCL [Apresoline] 50 mg PO TID #90 tab 05/04/21 06/12/21 Rx HYDROcodone/APAP 5-325MG [[place] 1 tab PO Q4HR PRN #10 tab 06/20/21 Rx 5-325] Allergies Allergy/AdvReac Type Severity Reaction Status Date / Time sulfamethoxazole Allergy Intermediate Rash/Hives Verified 10/16/22 17:33 [From Bactrim] trimethoprim [From Bactrim] Allergy Intermediate Rash/Hives Verified 10/16/22 17:33 ciprofloxacin [From Cipro] Allergy Unknown Verified 10/16/22 17:33 Physical Exam Vitals: Vital Signs Pulse Resp Pulse Ox 10/16/22 17:29 81 20 95 Intake and Output 10/16/22 10/16/22 10/16/22 06:59 14:59 22:59 Intake Total 0 Balance 0 Intake: IV 0 Other: Weight 145.15 kg Results Current Medications Generic Name Dose Route Start Last Admin Trade Name Freq PRN Reason Stop Dose Admin Nitroglycerin 0.4 mg 10/16/22 17:34 Nitroglycerin Sl Tabs 0.4 Mg Tab SUBLINGUAL Q5M PRN Chest Pain Intake and Output 10/16/22 10/16/22 10/16/22 06:59 14:59 22:59 Intake Total 0 Balance 0 Intake: IV 0 Other: Weight 145.15 kg Patient Weight 10/17/22 06:59 Weight 145.15 kg
[2022-10-16] MEDS ORDERED: IOPAMIDOL-370 100ML BTL INJ ONE (19:17)
[2022-10-16] MEDS ORDERED: RX INFO: IV CONTRAST WAS GIVEN 1 EACH MISC MISCELLANE PRN (19:22)
[2022-10-16] MEDS ORDERED: MAG HYDROX/AL HYDROX/SIMETH 30 ML CUP PO PRN (19:22)
--- NOTE | 2022-10-16 19:22 | P.PRCINT ---
Percutaneous Coronary Int. - Percutaneous Coronary Intervention Percutaneous Coronary Intervention: PROCEDURES PERFORMED: Left heart catheterization, bilateral coronary angiography, PCI proximal LAD with overlapping 3.5 x 18 mm and 3.5 x 12 mm Xience LIANNE, IVUS, Penumbra aspiration thrombectomy INDICATION: STEMI CONSENT:I have discussed the risks, benefits and alternative therapies for the above-mentioned procedure and for both sedation/analgesia as well as necessary blood product administration, if indicated, as they pertain to this patient. The patient has indicated understanding and acceptance of the risks and procedures discussed. PROCEDURE: After the risks, benefits and alternatives of the above mentioned procedure explained in detail with the patient, informed consent was obtained. Patient was taken to the catheterization lab and prepped and draped in usual fashion. 1% lidocaine was used to anesthetize the right radial artery. A 6- Tajik sheath was placed in the right radial artery using modified Seldinger technique. The decision was made to perform PCI of the LAD. A 6-Tajik CLS 3.5 guide was used to engage the left main. A 0.014 BMW wire was advanced into the distal LAD. Heparin was given for ACT greater than 250. A 2.5 x 12 mm balloon was used to predilate the lesion. Next a 3.0 x 20 mm noncompliant balloon was used to predilate the lesion. Next a 3.5 x 18 mm Xience LIANNE was placed in the proximal LAD. There was a lucency just distal to the stent concerning for possible thrombus and therefore IVUS was performed which did show thrombus. A number aspiration was attempted for a number of passes however on repeat IVUS there was still a small thrombus that appeared to emanate from the distal edge of the stent. Therefore an additional 3.5 x 12 mm Xience LIANNE was placed overlapping the first stent. The stents were postdilated with a 4.0 noncompliant balloon. Repeat IVUS showed good stent apposition and improvement in thrombus. The wire was pulled entirely as were performed. [place] registers 99% stenosis and SUSANA 1 flow and postintervention there was less than 10% stenosis and SUSANA-3 flow. Right coronary angiography was performed with a 5-Tajik JR5 catheter in various views. A 5-Tajik FR5 catheter was inserted into the left ventricle and pressure measurements were obtained. The right radial sheath was removed and a TR band was placed with hemostasis achieved. The patient tolerated the procedure well. Patient was transported back to the post catheterization holding area in stable condition. Conscious Sedation: Patient was monitored under the direct supervision of vision of myself for conscious sedation using Versed and fentanyl for a total duration of 60 minutes HEMODYNAMICS: Initial aortic blood pressure 220/130. IV nitroglycerin as well as hydralazine was given with improvement in blood pressure to 120-140s over 90s LV: 147/8, LVEDP 26, peak to peak gradient of 15 mmHg consistent with mild aortic stenosis SELECTIVE CORONARY ARTERIOGRAPHY: LEFT MAIN: The left main is a large caliber vessel which bifurcates into the LAD and circumflex. There is no significant stenosis. LEFT ANTERIOR DESCENDING CORONARY ARTERY: LAD is a large caliber vessel which wraps around to the apex. There is a long proximal LAD 99% stenosis with SUSANA 1 flow and otherwise mild luminal irregularities. LEFT CIRCUMFLEX CORONARY ARTERY: Left circumflex is a moderate caliber vessel mild luminal irregularities RIGHT CORONARY ARTERY: The right coronary artery is a large caliber vessel which gives off a PDA and PLV branch and is the dominant vessel. There are mild luminal irregularities FINAL IMPRESSION: 1. CAD as described above including 99% proximal LAD stenosis and otherwise mild luminal irregularities 2. S/p PCI proximal LAD with overlapping 3.5 x 18 mm and 3.5 x 12 mm Xience LIANNE, Penumbra aspiration thrombectomy 3. Elevated left sided filling pressures 4. Mild aortic stenosis with peak to peak gradient of 15 mmHg 5. Extreme hypertension on presentation blood pressure 220/130. PLAN: 1. Aggressive risk factor modification per most recent ACC/AHA guidelines. 2. Continue dual antiplatelets with aspirin and Brillinta for 12 months
[2022-10-16 19:23] LABS: Basophils % (A) 0 %; Eosinophils # (A) 0.1 k/uL (0-0.7); Eosinophils % (A) 0 %; HCT 43.4 % (39.0-53.0); HGB 15.1 gm/dL (13.0-17.5); Lymphocytes # (A) 0.7 k/uL (1.0-4.8); Lymphocytes % (A) 7 %; MCH 29.5 pg (25.0-35.0); MCHC 34.7 g/dL (31.0-37.0); Mean Platelet Volume 8.2; Monocytes # (A) 0.4 k/uL (0-1.0); Monocytes % (A) 3 %; Neutrophils # (A) 9.7 k/uL (1.3-7.7); Neutrophils % (A) 89 %; Platelet Count 192 k/uL (150-450)
[2022-10-16 19:35] LABS: Albumin 3.5 g/dL (3.5-5.0); Calcium 8.1 mg/dL (8.4-10.2); Magnesium 1.9 mg/dL (1.6-2.3); Potassium 3.1 mmol/L (3.5-5.1); Total Protein 6.6 g/dL (6.3-8.2)
[2022-10-16 19:42] LABS: Glucose,Whole Blood 108 mg/dL (70-110)
[2022-10-16 19:51] LABS: INR 1.1 (<1.2); Prothrombin Time 11.6 sec (9.0-12.0)
[2022-10-16 20:11] LABS: Partial Thromboplastin Time 159.2 sec (22.0-30.0)
[2022-10-16] MEDS ORDERED: Potassium Replacement Protocol 1 EACH MISC MISCELLANE PRN (20:35)
[2022-10-16] MEDS: ATORVASTATIN 80 MG TAB PO SCH (20:48)
[2022-10-16] MEDS: POTASSIUM CHLORIDE ER 20 MEQ TAB.ER PO SCH ×2 (20:49→22:06)
[2022-10-16] MEDS ORDERED: ONDANSETRON 4 MG/2 ML VIAL IVP PRN (21:08)
[2022-10-16] MEDS ORDERED: POTASSIUM CHLORIDE 20 MEQ in WATER FOR INJECTION 1 100ML.BAG IVPB STA (21:24)
[2022-10-16] MEDS ORDERED: ACETAMINOPHEN TAB 325 MG TAB PO PRN (22:07)
[2022-10-16] MEDS: POTASSIUM CHLORIDE 10 MEQ in WATER FOR INJECTION 1 100ML.BAG IVPB SCH ×2 (22:09→23:30)
[2022-10-16] MEDS ORDERED: SODIUM CHLORIDE 0.9% 1,000 ML IV SCH (22:45)
[2022-10-16] MEDS: hydrALAZINE HCL 20 MG/ML 1 ML VIAL IVP PRN (22:52)
--- NOTE | 2022-10-16 23:59 | ED ---
General Adult HPI - General Chief complaint: Arrhythmia/Palpitations Stated complaint: poss heart attack Source: EMS Mode of arrival: EMS Limitations: no limitations - History of Present Illness Initial comments: This is a 56-year-old male with a past medical history including hypertension and CK the presents emergency department via EMS for chest pain. Pre-arrival EKG showed a possible STEMI and on evaluation, the patient stated that he had worsening left-sided chest pressure over the last 1 day that started at 4:00 in the morning. The patient stated that ever since lunch, the pressure has been increasing on the left side of his chest associated with numbness and tingling down his left arm. The patient denied any diaphoresis but did state that he was mildly nauseous. The patient denied any other acute pain and denied any similar episodes in the past. The patient denied any coronary artery disease. - Related Data Home Medications Medication Instructions Recorded Confirmed cloNIDine HCL [Catapres] 0.2 mg PO TID 02/14/20 10/16/22 allopurinoL [Zyloprim] 100 mg PO DAILY 04/29/21 10/16/22 Levothyroxine Sodium [Synthroid] 137 mcg PO DAILY 04/30/21 10/16/22 Previous Rx's Medication Instructions Recorded hydrALAZINE HCL [Apresoline] 50 mg PO TID #90 tab 05/04/21 Allergies Allergy/AdvReac Type Severity Reaction Status Date / Time sulfamethoxazole Allergy Intermediate Rash/Hives Verified 10/16/22 20:24 [From Bactrim] trimethoprim [From Bactrim] Allergy Intermediate Rash/Hives Verified 10/16/22 20:24 ciprofloxacin [From Cipro] Allergy Unknown Verified 10/16/22 20:24 Review of Systems ROS Statement: Those systems with pertinent positive or pertinent negative responses have been documented in the HPI. ROS Other: All systems not noted in ROS Statement are negative. Past Medical History Past Medical History: Hypertension, Renal Disease, Thyroid Disorder Additional Past Medical History / Comment(s): frequent kidney stones, gout, UTI. History of Any Multi-Drug Resistant Organisms: ESBL Date of last positivie culture/infection: 07/25/21 MDRO Source:: ESBL URINE Past Surgical History: Adenoidectomy, Ear Surgery, Hernia Repair, Orthopedic Surgery Additional Past Surgical History / Comment(s): lithotripsy x18. BILAT LEG SURGERY CHILD AND STRETCHING OF ACHILLES TENDONS X 3 Past Anesthesia/Blood Transfusion Reactions: No Reported Reaction Past Psychological History: Anxiety, Depression Smoking Status: Never smoker Past Alcohol Use History: Rare Past Drug Use History: None Reported - Past Family History Father Family Medical History: Cancer, Diabetes Mellitus Additional Family Medical History / Comment(s): LIVER &COLON CANCER. KIDNEY STONES Mother History Unknown: Yes Family Medical History: No Reported History Additional Family Medical History / Comment(s): MOM IS HEALTHY SHE STATES NO MEDICAL PROBLEMS General Exam Limitations: no limitations General appearance: alert, in no apparent distress, obese Head exam: Present: atraumatic, normocephalic Eye exam: Present: normal appearance, PERRL Pupils: Present: normal accommodation ENT exam: Present: normal exam, normal oropharynx, mucous membranes moist Neck exam: Present: normal inspection, full ROM Respiratory exam: Present: normal lung sounds bilaterally Cardiovascular Exam: Present: regular rate, normal rhythm, normal heart sounds GI/Abdominal exam: Present: soft, normal bowel sounds Extremities exam: Present: normal inspection, full ROM, normal capillary refill Back exam: Present: normal inspection, full ROM Neurological exam: Present: alert, oriented X3, CN II-XII intact Psychiatric exam: Present: normal affect, normal mood Skin exam: Present: warm, dry Course Vital Signs 10/16/22 17:29 Pulse Rate 81 Respiratory 20 Rate O2 Sat by Pulse 95 Oximetry EKG Findings - EKG Comments: EKG Findings:: An EKG was obtained and was interpreted by myself. EKG showed a rate of 82, MA interval 148, QR islam of 122 and QTC of 442. This EKG was significant for ST segment elevations in lead V1, V2, V3, V4 and V5 with ST segment depressions in lead 3. There is also ST segment elevation in lead 1 and aVL. Procedures - [facility] Protocol (Time Out) Nurse: Kwame Plasencia V Patient Identification (2 identifiers required): Chart, Verbal, Arm Band, Name, Birthdate Medical Decision Making - Medical Decision Making Was pt. sent in by a medical professional or institution (, PA, PROGRAM DIRECTOR/AIR PERSONALITY, urgent care, hospital, or fpc...) When possible be specific @ -No Did you speak to anyone other than the patient for history (EMS, parent, family, police, friend...)? What history was obtained from this source @ -Yes, EMS Did you review nursing and triage notes (agree or disagree)? Why? @ -I reviewed and agree with nursing and triage notes Were old charts reviewed (outside hosp., previous admission, EMS record, old EKG, old radiological studies, urgent care reports/EKG's, fpc records)? Report findings @ -No old charts were reviewed Differential Diagnosis (chest pain, altered mental status, abdominal pain women, abdominal pain men, vaginal bleeding, weakness, fever, dyspnea, syncope, headache, dizziness, GI bleed, back pain, seizure, CVA, palpatations, mental health)? @ -ACS, PE, pneumothorax EKG interpreted by me (3pts min.). @ -As above X-rays interpreted by me (1pt min.). @ -None done CT interpreted by me (1pt min.). @ -None done U/S interpreted by me (1pt. min.). @ -None done What testing was considered but not performed or refused? (CT, X-rays, U/S, labs)? Why? @ -Chest x-ray was ordered however the patient was taken to the cardiac Television Maintenance Man prior to evaluation with imaging What meds were considered but not given or refused? Why? @ -Heparin was considered however cardiology was not contacted prior to the patient being admitted to the Television Maintenance Man therefore no further medications were given at this time awaiting the intervention lawn mower recommendations Did you discuss the management of the patient with other professionals (professionals i.e. , PA, PROGRAM DIRECTOR/AIR PERSONALITY, lab, RT, psych nurse, social media sr strategy manager, delivery driver assistant, teacher, psychological operations officer, case making machine operator)? Give summary @ -No Was smoking cessation discussed for >3mins.? @ -No Was critical care preformed (if so, how long)? @ -Yes, see above Were there social determinants of health that impacted care today? How? (Homelessness, low income, unemployed, alcoholism, drug addiction, transportation, low edu. Level, literacy, decrease access to med. care, fci, rehab)? @ -No Was there de-escalation of care discussed even if they declined (Discuss DNR or withdrawal of care, Hospice)? DNR status @ -No What co-morbidities impacted this encounter? (DM, HTN, Smoking, COPD, CAD, Cancer, CVA, ARF, Chemo, Hep., AIDS, mental health diagnosis, sleep apnea, morbid obesity)? @ -Obesity, hypertension Was patient admitted / discharged? Hospital course, mention meds given and route, prescriptions, significant lab abnormalities, going to OR and other pertinent info. @ -Patient was seen and evaluated emergency department. Physical exam, the patient was taken into the resuscitation bay immediately as the patient did have a pre-arrival EKG that was concerning for STEMI. Repeat EKG showed a continued STEMI and a code STEMI was called at 1730. The patient was taken urgently to the cardiac Television Maintenance Man at 1745 however there was no lawn mower spoken to. Dr. Brush did call back at 1749 and was made aware the patient. The patient will be admitted to his primary care physician, Dr. Kenyon. The patient was taken to the cardiac Television Maintenance Man in stable condition. Undiagnosed new problem with uncertain prognosis? @ -No Drug Therapy requiring intensive monitoring for toxicity (Heparin, Nitro, Insulin, Cardizem)? @ -No Were any procedures done? @ -No Diagnosis/symptom? @ -STEMI Acute, or Chronic, or Acute on Chronic? @ -Acute Uncomplicated (without systemic symptoms) or Complicated (systemic symptoms)? @ -Complicated Side effects of treatment? @ -No Exacerbation, Progression, or Severe Exacerbation? @ -No Poses a threat to life or bodily function? How? (Chest pain, [place], [place], pneumonia, PE, COPD, DKA, ARF, appy, cholecystitis, CVA, Diverticulitis, Homicidal, Suicidal, threat to staff... and all critical care pts) @ -Yes - Lab Data Result diagrams: 10/16/22 17:37 10/16/22 17:37 Lab Results 10/16/22 10/16/22 10/16/22 Range/Units 17:37 17:37 17:37 WBC 11.0 H (3.8-10.6) k/uL RBC 5.10 (4.30-5.90) m/uL Hgb 15.1 (13.0-17.5) gm/dL Hct 43.4 (39.0-53.0) % MCV 85.0 (80.0-100.0) fL MCH 29.5 (25.0-35.0) pg MCHC 34.7 (31.0-37.0) g/dL RDW 15.0 (11.5-15.5) % Plt Count 192 (150-450) k/uL MPV 8.2 Neutrophils % 89 % Lymphocytes % 7 % Monocytes % 3 % Eosinophils % 0 % Basophils % 0 % Neutrophils # 9.7 H (1.3-7.7) k/uL Lymphocytes # 0.7 L (1.0-4.8) k/uL Monocytes # 0.4 (0-1.0) k/uL Eosinophils # 0.1 (0-0.7) k/uL Basophils # 0.0 (0-0.2) k/uL PT 11.6 (9.0-12.0) sec INR 1.1 (<1.2) APTT 159.2 H* (22.0-30.0) sec Sodium 135 L (137-145) mmol/L Potassium 3.1 L (3.5-5.1) mmol/L Chloride 103 (98-107) mmol/L Carbon Dioxide 23 (22-30) mmol/L Anion Gap 9 mmol/L BUN 14 (9-20) mg/dL Creatinine 1.46 H (0.66-1.25) mg/dL Est GFR (CKD-EPI)AfAm 62 (>60 ml/min/1.73 sqM) Est GFR (CKD-EPI)NonAf 53 (>60 ml/min/1.73 sqM) Glucose 141 H (74-99) mg/dL Calcium 8.1 L (8.4-10.2) mg/dL Magnesium 1.9 (1.6-2.3) mg/dL Total Bilirubin 1.0 (0.2-1.3) mg/dL AST 245 H (17-59) U/L ALT 62 H (4-49) U/L Alkaline Phosphatase 60 (38-126) U/L Troponin I (0.000-0.034) ng/mL Total Protein 6.6 (6.3-8.2) g/dL Albumin 3.5 (3.5-5.0) g/dL 10/16/22 Range/Units 17:37 WBC (3.8-10.6) k/uL RBC (4.30-5.90) m/uL Hgb (13.0-17.5) gm/dL Hct (39.0-53.0) % MCV (80.0-100.0) fL MCH (25.0-35.0) pg MCHC (31.0-37.0) g/dL RDW (11.5-15.5) % Plt Count (150-450) k/uL MPV Neutrophils % % Lymphocytes % % Monocytes % % Eosinophils % % Basophils % % Neutrophils # (1.3-7.7) k/uL Lymphocytes # (1.0-4.8) k/uL Monocytes # (0-1.0) k/uL Eosinophils # (0-0.7) k/uL Basophils # (0-0.2) k/uL PT (9.0-12.0) sec INR (<1.2) APTT (22.0-30.0) sec Sodium (137-145) mmol/L Potassium (3.5-5.1) mmol/L Chloride (98-107) mmol/L Carbon Dioxide (22-30) mmol/L Anion Gap mmol/L BUN (9-20) mg/dL Creatinine (0.66-1.25) mg/dL Est GFR (CKD-EPI)AfAm (>60 ml/min/1.73 sqM) Est GFR (CKD-EPI)NonAf (>60 ml/min/1.73 sqM) Glucose (74-99) mg/dL Calcium (8.4-10.2) mg/dL Magnesium (1.6-2.3) mg/dL Total Bilirubin (0.2-1.3) mg/dL AST (17-59) U/L ALT (4-49) U/L Alkaline Phosphatase (38-126) U/L Troponin I 30.400 H* (0.000-0.034) ng/mL Total Protein (6.3-8.2) g/dL Albumin (3.5-5.0) g/dL Critical Care Time Critical Care Time: Yes Total Critical Care Time: 15 Disposition Clinical Impression: STEMI (ST elevation myocardial infarction) Disposition: ADMITTED IP TO THIS [facility] Condition: Serious Is patient prescribed a controlled substance at d/c from ED?: No Time of Disposition: 17:30 Decision to Admit Reason: Admit from EC Decision Date: 10/16/22 Decision Time: 17:30
[2022-10-17 04:57] LABS: Potassium 3.6 mmol/L (3.5-5.1)
[2022-10-17] MEDS ORDERED: Potassium Replacement Protocol 1 EACH MISC MISCELLANE PRN (06:08)
[2022-10-17] MEDS: hydrALAZINE HCL 20 MG/ML 1 ML VIAL IVP PRN (06:23)
[2022-10-17] MEDS: POTASSIUM CHLORIDE 10 MEQ in WATER FOR INJECTION 1 100ML.BAG IVPB SCH ×2 (06:23→07:22)
[2022-10-17] MEDS ORDERED: carvediloL 6.25 MG TAB PO SCH (08:15)
--- NOTE | 2022-10-17 09:18 | P.PN ---
Subjective Progress Note Date: 10/17/22 The patient is a 56-year-old male who presented to the emergency room with new onset of chest pain and dyspnea. He was ruled in for an ST elevated myocardial infarction and underwent stenting of the LAD. The patient tolerated the procedure well. The patient states he did not sleep well overnight and generally feels unwell. He states he is not currently having any chest pain or difficulty breathing. He states he is tired and fatigued. GENERAL: Well-appearing, obese male, in no acute distress. NECK: Supple without JVD or thyromegaly. LUNGS: Breath sounds clear to auscultation bilaterally. Respiration equal and unlabored. No wheezes, rales or rhonchi. HEART: Regular rate and rhythm. Soft systolic mirmir. No rubs or gallops. S1 and S2 heard. EXTREMITIES: Normal range of motion, no edema. No clubbing or cyanosis. Peripheral pulses intact and strong. Right radial site shows no hematoma or drainage. TR band in place VITALS: Blood pressure 156/99, SpO2 97% on 2 L nasal cannula, heart rate 105, respiratory rate 17 TELEMETRY: Sinus tachycardia overnight LABS: Creatinine 1.38, potassium 3.6 IMPRESSION: Anterior wall ST elevated myocardial infarction Status post stenting of the LAD Chronic kidney disease secondary to kidney stones Morbid obesity History of hypertension History of hypothyroid PLAN: Start Carvedilol 6.25 mg twice daily Start low-dose hydralazine, however this will be weaned once carvedilol is maximized Consider resuming nitroglycerin drip if he remains hypertensive Awaiting echocardiogram results Further recommendations to be based on clinical course I am dictating on behalf of Dr Amrit Garcia's history/physical and assessment/plan. Objective - Vital Signs Vital signs: Vital Signs Temp 98.0 F 10/17/22 00:00 Pulse 105 H 10/17/22 07:00 Resp 17 10/17/22 07:00 BP 156/99 10/17/22 07:00 Pulse Ox 97 10/17/22 07:00 FiO2 Intake & Output 10/16/22 10/17/22 10/17/22 18:59 06:59 18:59 Intake Total 350 530 Output Total 600 Balance 350 -70 Weight 145.15 kg 157.5 kg Intake: IV 350 Intake, IV Titration 530 Amount Potassium Chloride 20 meq 250 In Water For Injection 1 100ml.bag @ 50 mls/hr IVPB ONCE STA Rx#: [id number] Sodium Chloride 0.9% 1, 280 000 ml @ 50 mls/hr IV . Q20H [facility] Rx#:[id number] Output: Urine 600 Other: Voiding Method Urinal - Labs CBC & Chem 7: 10/16/22 17:37 10/17/22 03:43 Labs: Abnormal Lab Results - Last 24 Hours (Table) 10/16/22 10/16/22 10/16/22 Range/Units 17:37 17:37 17:37 WBC 11.0 H (3.8-10.6) k/uL Neutrophils # 9.7 H (1.3-7.7) k/uL Lymphocytes # 0.7 L (1.0-4.8) k/uL APTT 159.2 H* (22.0-30.0) sec Sodium 135 L (137-145) mmol/L Potassium 3.1 L (3.5-5.1) mmol/L Creatinine 1.46 H (0.66-1.25) mg/dL Glucose 141 H (74-99) mg/dL Calcium 8.1 L (8.4-10.2) mg/dL AST 245 H (17-59) U/L ALT 62 H (4-49) U/L Troponin I (0.000-0.034) ng/mL 10/16/22 10/17/22 Range/Units 17:37 03:43 WBC (3.8-10.6) k/uL Neutrophils # (1.3-7.7) k/uL Lymphocytes # (1.0-4.8) k/uL APTT (22.0-30.0) sec Sodium (137-145) mmol/L Potassium (3.5-5.1) mmol/L Creatinine 1.38 H (0.66-1.25) mg/dL Glucose (74-99) mg/dL Calcium (8.4-10.2) mg/dL AST (17-59) U/L ALT (4-49) U/L Troponin I 30.400 H* (0.000-0.034) ng/mL
[2022-10-17] MEDS: ASPIRIN 81 MG PO SCH (09:30)
[2022-10-17] MEDS: TICAGRELOR 90 MG TAB PO SCH ×2 (09:30→21:28)
[2022-10-17 10:18] VITALS: BMI 49.8
[2022-10-17] MEDS: allopurinoL 100 MG TAB PO SCH (11:47)
[2022-10-17] MEDS: hydrALAZINE HCL 25 MG TAB PO SCH ×2 (11:47→16:14)
--- NOTE | 2022-10-17 12:52 | CA ---
Transthoracic Echo Report Name: King Mason Age: 56 Gender: M : 1965 Exam Date: 10/17/2022 09:41 Exam Location: [facility] Ht (in): 70 Wt (lb): 347 Ordering Physician: Homero Brush DO ([email or web address]) Attending/Referring Phys: Monotype Operator Елена Pulliam RDCS Procedure CPT: Indications: re: LV function, STEMI Cardiac Hx: Technical Quality: Very technically difficult study Contrast 1: Lumason Total Dose (mL): 4 Contrast 2: Total Dose (mL): MEASUREMENTS (Male / Female) Normal Values M-MODE Aortic Root Diameter MM 3.1 cm LA Systolic Diameter MM 4.3 cm LA Ao Ratio MM 1.4 AV Cusp Separation MM 1.7 cm FINDINGS Left Ventricle Very technically difficult study with lumason. Left ventricular ejection fraction is estimated at 40%. Right Ventricle Right ventricle not well visualized. Right Atrium Right atrium not well visualized. Left Atrium Left atrium not well visualized. Mitral Valve Mitral valve not well visualized. Aortic Valve Aortic valve not well visualized. Tricuspid Valve Tricuspid valve not well visualized. Pulmonic Valve Pulmonic valve not well visualized. Pericardium No pericardial effusion. Aorta Aortic root and proximal ascending aorta not well visualized. CONCLUSIONS Technically difficult study Left ventricular ejection fraction 40% Valvular disease not well visualized however does not appear to have any significant mitral regurgitation or aortic stenosis. Previewed by: Dr. Homero Brush DO (Electronically Signed) Final Date: 17 October 2022 12:51
[2022-10-17] MEDS: LEVOTHYROXINE 137 MCG TAB PO SCH (12:55)
--- NOTE | 2022-10-17 14:07 | P.HPIM ---
History of Present Illness H&P Date: 10/17/22 Chief Complaint: Chest pain History of presenting complaint: This is a pleasant 56-year-old patient of Dr. Hand. Chronic stable medical conditions include hypertension, hypothyroid and obesity, chronic kidney disease. Also multiple kidney stones-different procedures done. He follows with Dr. Koroma from urology. He believes he has calcium oxalate stones. Patient yesterday started off having pressure across the chest progressively getting worse. Going up to the upper part of the chest. No dizziness no lightheadedness nose shortness of breath no perspiration. Weak tired rundown. Pain progressively got worse and decided to come into the ER. Patient is found to have ST elevation MD and patient ended up getting 2 stents to the LAD. Postprocedure in the ICU. Blood pressures running on the higher side. Medications being adjusted. Currently no chest pain. In the recliner. Review of systems: GEN.:, tired EYES: None HEENT: None NECK: None RESPIRATORY: None CARDIOVASCULAR: As above GASTROINTESTINAL: None GENITOURINARY: None MUSCULOSKELETAL: None LYMPHATICS: None HEMATOLOGICAL: None PSYCHIATRY: None NEUROLOGICAL: None Past medical history: Hypertension, chronic kidney disease, hypothyroid, kidney stones, history of gout Social history: Does not smoke. Alcohol occasionally. 19-year-old son lives with him. on disability. Physical examination: VITAL SIGNS: 97.4, 101, 18, 166/115, 96% room air GENERAL: BMI 49.8, in a recliner, tired EYES: Pupils equal. Conjunctiva normal. HEENT: External appearance of nose and ears normal, oral cavity grossly normal. NECK: JVD not raised; masses not palpable. HEART: First and second heart sounds are normal; no edema. LUNGS: Respiratory rate normal; clear to auscultation. ABDOMEN: Soft, right lower quadrant tenderness, no guarding rigidity, no guarding or rigidity, liver spleen not palpable, no masses palpable. PSYCH: Alert and oriented x3; mood and affect tired NEUROLOGICAL: Cranial nerves grossly intact; no facial asymmetry, power and sensation grossly intact. LYMPHATICS: No lymph nodes palpable in the axilla and neck INVESTIGATIONS, reviewed in the clinical context: White count 11 hemoglobin 15.1 platelets 192 sodium 135 BUN 14 creatinine 1.46 Troponin I 30.4 EKG tracing personally reviewed by me-ST elevation in anterior leads and inverted T waves in inferior leads Chest x-ray film personally reviewed by me-portable/no infiltrates Previous labs: Creatinine 1.26 on [February 2020] Assessment and plan: -Acute anterior wall ST elevation myocardial infarction. Emergent cardiac catheterization: 2 stents to the LAD. Aspirin. Coreg. Brillinta -Bilateral nephrolithiasis, with a history of possible oxalate stones -Chronic kidney disease stage III, Baseline creatinine 1.26 -Morbid obesity BMI 49.8 Weight loss measures. Dietitian -Hypothyroid Synthroid 137 g -Essential hypertension, with chronic kidney disease Hydralazine, Coreg, -Nonalcoholic fatty liver disease Past Medical History Past Medical History: Hypertension, Renal Disease, Thyroid Disorder Additional Past Medical History / Comment(s): frequent kidney stones, gout, UTI. History of Any Multi-Drug Resistant Organisms: ESBL Date of last positivie culture/infection: 07/25/21 MDRO Source:: ESBL URINE Past Surgical History: Adenoidectomy, Ear Surgery, Hernia Repair, Orthopedic Surgery Additional Past Surgical History / Comment(s): lithotripsy x18. BILAT LEG SURGERY CHILD AND STRETCHING OF ACHILLES TENDONS X 3 Past Anesthesia/Blood Transfusion Reactions: No Reported Reaction Past Psychological History: Anxiety, Depression Smoking Status: Never smoker Past Alcohol Use History: Rare Past Drug Use History: None Reported - Past Family History Father Family Medical History: Cancer, Diabetes Mellitus Additional Family Medical History / Comment(s): LIVER &COLON CANCER. KIDNEY STONES Mother History Unknown: Yes Family Medical History: No Reported History Additional Family Medical History / Comment(s): MOM IS HEALTHY SHE STATES NO MEDICAL PROBLEMS Medications and Allergies Home Medications Medication Instructions Recorded Confirmed Type cloNIDine HCL [Catapres] 0.2 mg PO TID 02/14/20 10/16/22 History allopurinoL [Zyloprim] 100 mg PO DAILY 04/29/21 10/16/22 History Levothyroxine Sodium [Synthroid] 137 mcg PO DAILY 04/30/21 10/16/22 History hydrALAZINE HCL [Apresoline] 50 mg PO TID #90 tab 05/04/21 10/16/22 Rx Allergies Allergy/AdvReac Type Severity Reaction Status Date / Time sulfamethoxazole Allergy Intermediate Rash/Hives Verified 10/16/22 20:24 [From Bactrim] trimethoprim [From Bactrim] Allergy Intermediate Rash/Hives Verified 10/16/22 20:24 ciprofloxacin [From Cipro] Allergy Unknown Verified 10/16/22 20:24 Physical Exam Vitals: Vital Signs Temp Pulse Pulse Pulse Pulse Resp BP 10/17/22 09:30 107 H 14 164/104 10/17/22 09:00 107 H 18 166/115 10/17/22 08:30 101 H 12 163/109 10/17/22 08:00 97.4 F L 100 12 143/110 10/17/22 07:30 104 H 27 H 146/97 10/17/22 07:00 105 H 17 156/99 10/17/22 06:30 102 H 15 171/109 10/17/22 06:00 103 H 21 155/113 10/17/22 05:30 98 19 153/114 10/17/22 05:00 99 23 153/121 10/17/22 04:30 96 13 150/113 10/17/22 04:00 100 11 L 177/110 10/17/22 03:44 91 91 91 20 10/17/22 03:30 100 20 166/116 10/17/22 03:00 103 H 14 169/110 10/17/22 02:30 98 15 171/110 10/17/22 02:00 98 21 160/109 10/17/22 01:30 99 13 159/107 10/17/22 01:00 99 21 155/106 10/17/22 00:30 96 17 158/115 10/17/22 00:18 99 15 158/115 10/17/22 00:00 98.0 F 95 94 90 90 20 167/129 10/16/22 23:30 101 H 35 H 172/117 10/16/22 23:00 90 20 195/139 10/16/22 22:30 14 145/82 10/16/22 22:10 88 18 136/94 10/16/22 22:00 90 16 179/122 10/16/22 21:50 89 15 179/122 10/16/22 21:40 86 17 165/123 10/16/22 21:30 85 12 175/137 10/16/22 21:20 85 14 175/137 10/16/22 21:10 87 21 169/141 10/16/22 21:00 96 25 H 168/117 10/16/22 20:50 85 31 H 168/117 10/16/22 20:40 86 14 164/119 10/16/22 20:30 86 6 L 150/109 10/16/22 20:20 89 12 150/109 10/16/22 20:10 88 13 130/71 10/16/22 20:00 98.4 F 86 89 89 89 19 130/71 10/16/22 19:50 86 17 130/71 10/16/22 19:40 84 24 137/85 10/16/22 19:38 82 19 134/86 10/16/22 17:29 81 20 Pulse Ox 10/17/22 09:30 95 10/17/22 09:00 10/17/22 08:30 96 10/17/22 08:00 96 10/17/22 07:30 95 10/17/22 07:00 97 10/17/22 06:30 96 10/17/22 06:00 95 10/17/22 05:30 97 10/17/22 05:00 97 10/17/22 04:30 95 10/17/22 04:00 10/17/22 03:44 10/17/22 03:30 10/17/22 03:00 10/17/22 02:30 96 10/17/22 02:00 95 10/17/22 01:30 96 10/17/22 01:00 97 10/17/22 00:30 97 10/17/22 00:18 97 10/17/22 00:00 96 10/16/22 23:30 96 10/16/22 23:00 97 10/16/22 22:30 98 10/16/22 22:10 98 10/16/22 22:00 97 10/16/22 21:50 98 10/16/22 21:40 98 10/16/22 21:30 98 10/16/22 21:20 99 10/16/22 21:10 99 10/16/22 21:00 98 10/16/22 20:50 98 10/16/22 20:40 98 10/16/22 20:30 99 10/16/22 20:20 96 10/16/22 20:10 97 10/16/22 20:00 97 10/16/22 19:50 96 10/16/22 19:40 96 10/16/22 19:38 96 10/16/22 17:29 95 Intake and Output 10/16/22 10/17/22 10/17/22 22:59 06:59 14:59 Intake Total 500 380 40 Output Total 350 250 175 Balance 150 130 -135 Intake: IV 350 40 Sodium Chloride 0.9% 1, 40 000 ml @ 50 mls/hr IV . Q20H [facility] Rx#:[id number] Intake, IV Titration 150 380 Amount Potassium Chloride 20 meq 250 In Water For Injection 1 100ml.bag @ 50 mls/hr IVPB ONCE STA Rx#: [id number] Sodium Chloride 0.9% 1, 150 130 000 ml @ 50 mls/hr IV . Q20H [facility] Rx#:[id number] Output: Urine 350 250 175 Other: Voiding Method Urinal Urinal Weight 145.15 kg 157.5 kg 157.5 kg Results CBC & Chem 7: 10/16/22 17:37 10/17/22 03:43 Labs: Abnormal Lab Results - Last 24 Hours (Table) 10/16/22 10/16/22 10/16/22 Range/Units 17:37 17:37 17:37 WBC 11.0 H (3.8-10.6) k/uL Neutrophils # 9.7 H (1.3-7.7) k/uL Lymphocytes # 0.7 L (1.0-4.8) k/uL APTT 159.2 H* (22.0-30.0) sec Sodium 135 L (137-145) mmol/L Potassium 3.1 L (3.5-5.1) mmol/L Creatinine 1.46 H (0.66-1.25) mg/dL Glucose 141 H (74-99) mg/dL Calcium 8.1 L (8.4-10.2) mg/dL AST 245 H (17-59) U/L ALT 62 H (4-49) U/L Troponin I (0.000-0.034) ng/mL 10/16/22 10/17/22 Range/Units 17:37 03:43 WBC (3.8-10.6) k/uL Neutrophils # (1.3-7.7) k/uL Lymphocytes # (1.0-4.8) k/uL APTT (22.0-30.0) sec Sodium (137-145) mmol/L Potassium (3.5-5.1) mmol/L Creatinine 1.38 H (0.66-1.25) mg/dL Glucose (74-99) mg/dL Calcium (8.4-10.2) mg/dL AST (17-59) U/L ALT (4-49) U/L Troponin I 30.400 H* (0.000-0.034) ng/mL
[2022-10-17] MEDS ORDERED: hydrALAZINE HCL 25 MG TAB PO STA (16:40)
[2022-10-17] MEDS: carvediloL 12.5 MG TAB PO SCH (17:30)
[2022-10-17] MEDS: ATORVASTATIN 80 MG TAB PO SCH (21:28)
[2022-10-17] MEDS: hydrALAZINE HCL 50 MG TAB PO SCH (21:28)
[2022-10-18] MEDS: LEVOTHYROXINE 137 MCG TAB PO SCH (06:18)
[2022-10-18] MEDS: carvediloL 12.5 MG TAB PO SCH ×2 (06:18→17:38)
[2022-10-18] MEDS: hydrALAZINE HCL 50 MG TAB PO SCH ×3 (09:32→21:15)
[2022-10-18] MEDS: allopurinoL 100 MG TAB PO SCH (09:32)
[2022-10-18] MEDS: TICAGRELOR 90 MG TAB PO SCH ×2 (09:32→21:15)
[2022-10-18] MEDS: ASPIRIN 81 MG PO SCH (09:32)
--- NOTE | 2022-10-18 16:59 | P.PN ---
Progress Note - Text Progress Note Date: 10/18/22 Chief Complaint: Chest pain History of presenting complaint: This is a pleasant 56-year-old patient of Dr. Hand. Chronic stable medical conditions include hypertension, hypothyroid and obesity, chronic kidney disease. Also multiple kidney stones-different procedures done. He follows with Dr. Koroma from urology. He believes he has calcium oxalate stones. Patient yesterday started off having pressure across the chest progressively getting worse. Going up to the upper part of the chest. No dizziness no lightheadedness nose shortness of breath no perspiration. Weak tired rundown. Pain progressively got worse and decided to come into the ER. Patient is found to have ST elevation [place] and patient ended up getting 2 stents to the LAD. Postprocedure in the ICU. Blood pressures running on the higher side. Medications being adjusted. Currently no chest pain. In the recliner. 10/18/2022: ICU. Doing better. Did ambulate. No chest pain or short of breath. Good oral intake. Blood pressure better controlled. Active Medications Acetaminophen (Acetaminophen Tab 325 Mg Tab) 325 mg PO Q6HR PRN PRN Reason: Fever and/ or Pain Al Hydroxide/Mg Hydroxide (Mag Hydrox/Al Hydrox/Simeth 30 Ml Cup) 30 ml PO Q4HR PRN PRN Reason: Heartburn Last Admin: 10/16/22 20:49 Dose: 30 ml Allopurinol (Allopurinol 100 Mg Tab) 100 mg PO DAILY [facility] Last Admin: 10/18/22 09:32 Dose: 100 mg Aspirin (Aspirin 81 Mg) 81 mg PO DAILY [facility] Last Admin: 10/18/22 09:32 Dose: 81 mg Atorvastatin Calcium (Atorvastatin 80 Mg Tab) 80 mg PO HS [facility] Last Admin: 10/17/22 21:28 Dose: 80 mg Carvedilol (Carvedilol 12.5 Mg Tab) 12.5 mg PO BID-W/MEALS [facility] Last Admin: 10/18/22 06:18 Dose: 12.5 mg Hydralazine HCl (Hydralazine Hcl 50 Mg Tab) 50 mg PO TID [facility] Last Admin: 10/18/22 16:08 Dose: 50 mg Levothyroxine Sodium (Levothyroxine 137 Mcg Tab) 137 mcg PO DAILY@0630 [facility] Last Admin: 10/18/22 06:18 Dose: 137 mcg Miscellaneous Information (Rx Info: Iv Contrast Was Given 1 Each Misc) 1 each MISCELLANE DAILY PRN PRN Reason: Per Protocol Stop: 10/18/22 19:22 Miscellaneous Information (Potassium Replacement Protocol 1 Each Misc) 1 each MISCELLANE DAILY PRN; Protocol PRN Reason: Per Protocol Nitroglycerin (Nitroglycerin Sl Tabs 0.4 Mg Tab) 0.4 mg SUBLINGUAL Q5M PRN PRN Reason: Chest Pain Ondansetron HCl (Ondansetron 4 Mg/2 Ml Vial) 4 mg IVP Q6HR PRN PRN Reason: Nausea And Vomiting Last Admin: 10/16/22 21:16 Dose: 4 mg Ticagrelor (Ticagrelor 90 Mg Tab) 90 mg PO BID [facility]; Protocol Last Admin: 10/18/22 09:32 Dose: 90 mg Past medical history: Hypertension, chronic kidney disease, hypothyroid, kidney stones, history of gout Social history: Does not smoke. Alcohol occasionally. 19-year-old son lives with him. on disability. Physical examination: VITAL SIGNS: 98.1, 85, 18, 11/10/1985, 95% room air GENERAL: In a recliner, comfortable EYES: Pupils equal. Conjunctiva normal. HEENT: External appearance of nose and ears normal, oral cavity grossly normal. NECK: JVD not raised; masses not palpable. HEART: First and second heart sounds are normal; no edema. LUNGS: Respiratory rate normal; clear to auscultation. ABDOMEN: Soft, right lower quadrant tenderness, no guarding rigidity, no guarding or rigidity, liver spleen not palpable, no masses palpable. PSYCH: Alert and oriented x3; mood and affect tired INVESTIGATIONS, reviewed in the clinical context: White count 11 hemoglobin 15.1 platelets 192 sodium 135 BUN 14 creatinine 1.46 Troponin I 30.4 EKG tracing personally reviewed by me-ST elevation in anterior leads and inverted T waves in inferior leads Chest x-ray film personally reviewed by me-portable/no infiltrates Previous labs: Creatinine 1.26 on [February 2020] Assessment and plan: -Acute anterior wall ST elevation myocardial infarction. Emergent cardiac catheterization, by Dr. Brush: 2 stents to the LAD. Aspirin. Coreg. Brillinta -Bilateral nephrolithiasis, with a history of possible oxalate stones -Chronic kidney disease stage III, Baseline creatinine 1.26 -Morbid obesity BMI 49.8 Weight loss measures. Dietitian -Hypothyroid Synthroid 137 g -Essential hypertension, with chronic kidney disease Hydralazine, Coreg, -Nonalcoholic fatty liver disease
--- NOTE | 2022-10-18 18:36 | P.PN ---
Subjective Progress Note Date: 10/18/22 The patient is a 56-year-old male who presented to the emergency room with new onset of chest pain and dyspnea. He was ruled in for an ST elevated myocardial infarction and underwent stenting of the LAD. The patient tolerated the procedure well. Echocardiogram shows reduced LV function at 40% He states he is not currently having any chest pain or difficulty breathing. He states he is tired and fatigued.he has gotten up and ambulated around the room. No dizziness or lightheadedness. GENERAL: Well-appearing, obese male, in no acute distress. NECK: Supple without JVD or thyromegaly. LUNGS: Breath sounds clear to auscultation bilaterally. Respiration equal and unlabored. No wheezes, rales or rhonchi. HEART: Regular rate and rhythm. Soft systolic mirmir. No rubs or gallops. S1 and S2 heard. EXTREMITIES: Normal range of motion, no edema. No clubbing or cyanosis. Peripheral pulses intact and strong. Right radial site shows no hematoma or drainage. VITALS: Blood pressure 129/86, respiratory rate 18, pulse 85, SPO2 95% on room air TELEMETRY: Sinus rhythm IMPRESSION: Anterior wall ST elevated myocardial infarction Status post stenting of the LAD Ischemic cardiomyopathy Chronic kidney disease secondary to kidney stones Morbid obesity History of hypertension History of hypothyroid PLAN: Continue carvediolol 12.5mg Add low dose losartan as kidney function is stable Continue hydralazine, but plan on weaning in the future Patient may be transferred to I am dictating on behalf of Dr Amrit Garcia's history/physical and assessment/plan. Objective - Vital Signs Vital signs: Vital Signs Temp 98.4 F 10/18/22 16:00 Pulse 95 10/18/22 16:00 Resp 13 10/18/22 16:00 BP 152/104 10/18/22 16:00 Pulse Ox 95 10/18/22 12:00 FiO2 Intake & Output 10/17/22 10/18/22 10/18/22 18:59 06:59 18:59 Intake Total 80 350 580 Output Total 375 450 650 Balance -295 -100 -70 Weight 157.5 kg 154.1 kg Intake: IV 80 Sodium Chloride 0.9% 1, 80 000 ml @ 50 mls/hr IV . Q20H [facility] Rx#:[id number] Oral 350 Tube Feeding 580 Output: Urine 375 450 650 Other: Voiding Method Urinal Urinal Urinal # Voids 0 - Labs CBC & Chem 7: 10/16/22 17:37 10/17/22 03:43
[2022-10-18] MEDS: ATORVASTATIN 80 MG TAB PO SCH (21:15)
[2022-10-19] MEDS: carvediloL 12.5 MG TAB PO SCH ×2 (06:21→17:00)
[2022-10-19] MEDS: LEVOTHYROXINE 137 MCG TAB PO SCH (06:22)
[2022-10-19 08:09] LABS: Calcium 8.2 mg/dL (8.4-10.2); Potassium 3.4 mmol/L (3.5-5.1)
[2022-10-19] MEDS: allopurinoL 100 MG TAB PO SCH (09:57)
[2022-10-19] MEDS: TICAGRELOR 90 MG TAB PO SCH ×2 (09:57→20:00)
[2022-10-19] MEDS: ASPIRIN 81 MG PO SCH (09:57)
[2022-10-19] MEDS: POTASSIUM CHLORIDE ER 20 MEQ TAB.ER PO SCH ×2 (10:22→11:32)
--- NOTE | 2022-10-19 13:22 | P.PN ---
Subjective Progress Note Date: 10/19/22 This is Bienvenido Knight NP, I'm dictating on behalf of Dr. Garcia's H&P and A&P. Patient was interviewed and examined. Patient is a pleasant 56-year-old male who initially was admitted to the hospital with a anterior wall ST elevated myocardial infarction, with stenting to the LAD and post cath ischemic cardiomyopathy. Patient reports that he's feeling okay today. Is having no issues with his catheter site. He is denying chest pain and shortness of breath today. Patient's heart rate is under contr ol, his blood pressure still somewhat elevated. GENERAL: Well-appearing, well-nourished and in no acute distress. NECK: Supple without JVD or thyromegaly. LUNGS: Breath sounds clear to auscultation bilaterally. Respiration equal and unlabored. No wheezes, rales or rhonchi. HEART: Regular rate and rhythm without murmurs, rubs or gallops. S1 and S2 heard. EXTREMITIES: Normal range of motion, no edema. No clubbing or cyanosis. Peripheral pulses intact and strong. VITALS: Temp 97.7, pulse 81, respirations 22, blood pressure 156/108, O2 saturation 97% on room air TELEMETRY: Normal sinus rhythm LABS: Sodium 137, potassium 3.4, B1 24, creatinine 1.68, calcium 8.2 IMPRESSION: 1. Anterior wall ST elevated myocardial infarction 2. Status post stenting of the LAD 3. Ischemic cardiomyopathy 4. Chronic kidney disease secondary to kidney stones 5. Morbid obesity 6. History of hypertension 7. History of hypothyroid PLAN: Increase Coreg to 25 mg twice a day. Discontinue hydralazine. Continue to monitor blood pressure. Further recommendations based on the patient's clinical course. Objective - Vital Signs Vital signs: Vital Signs Temp 97.7 F 10/19/22 12:32 Pulse 86 10/19/22 12:32 Resp 16 10/19/22 12:32 BP 134/83 10/19/22 12:32 Pulse Ox 97 10/19/22 12:32 FiO2 Intake & Output 10/18/22 10/19/22 10/19/22 18:59 06:59 18:59 Intake Total 580 Output Total 650 150 Balance -70 -150 Weight 153.3 kg Intake: Tube Feeding 580 Output: Urine 650 150 Other: Voiding Method Urinal Urinal # Voids 0 1 1 # Bowel Movements 1 - Labs CBC & Chem 7: 10/16/22 17:37 10/19/22 07:21 Labs: Abnormal Lab Results - Last 24 Hours (Table) 10/19/22 Range/Units 07:21 Potassium 3.4 L (3.5-5.1) mmol/L BUN 24 H (9-20) mg/dL Creatinine 1.68 H (0.66-1.25) mg/dL Glucose 128 H (74-99) mg/dL Calcium 8.2 L (8.4-10.2) mg/dL
[2022-10-19] MEDS: hydrALAZINE HCL 50 MG TAB PO SCH (13:37)
--- NOTE | 2022-10-19 13:48 | P.PN ---
Progress Note - Text Progress Note Date: 10/19/22 Chief Complaint: Chest pain History of presenting complaint: This is a pleasant 56-year-old patient of Dr. Hand. Chronic stable medical conditions include hypertension, hypothyroid and obesity, chronic kidney disease. Also multiple kidney stones-different procedures done. He follows with Dr. Koroma from urology. He believes he has calcium oxalate stones. Patient yesterday started off having pressure across the chest progressively getting worse. Going up to the upper part of the chest. No dizziness no lightheadedness nose shortness of breath no perspiration. Weak tired rundown. Pain progressively got worse and decided to come into the ER. Patient is found to have ST elevation [place] and patient ended up getting 2 stents to the LAD. Postprocedure in the ICU. Blood pressures running on the higher side. Medications being adjusted. Currently no chest pain. In the recliner. 10/18/2022: ICU. Doing better. Did ambulate. No chest pain or short of breath. Good oral intake. Blood pressure better controlled. 10/19/2022: Moved to the medical floor. Coreg changed to 25 mg twice a day for blood pressure. Up and about. No cardiac symptoms. Discussed. Active Medications Acetaminophen (Acetaminophen Tab 325 Mg Tab) 325 mg PO Q6HR PRN PRN Reason: Fever and/ or Pain Al Hydroxide/Mg Hydroxide (Mag Hydrox/Al Hydrox/Simeth 30 Ml Cup) 30 ml PO Q4HR PRN PRN Reason: Heartburn Last Admin: 10/16/22 20:49 Dose: 30 ml Allopurinol (Allopurinol 100 Mg Tab) 100 mg PO DAILY [facility] Last Admin: 10/19/22 09:57 Dose: 100 mg Aspirin (Aspirin 81 Mg) 81 mg PO DAILY [facility] Last Admin: 10/19/22 09:57 Dose: 81 mg Atorvastatin Calcium (Atorvastatin 80 Mg Tab) 80 mg PO HS [facility] Last Admin: 10/18/22 21:15 Dose: 80 mg Carvedilol (Carvedilol 12.5 Mg Tab) 25 mg PO BID-W/MEALS [facility] Levothyroxine Sodium (Levothyroxine 137 Mcg Tab) 137 mcg PO DAILY@0630 [facility] Last Admin: 10/19/22 06:22 Dose: 137 mcg Miscellaneous Information (Potassium Replacement Protocol 1 Each Misc) 1 each MISCELLANE DAILY PRN; Protocol PRN Reason: Per Protocol Nitroglycerin (Nitroglycerin Sl Tabs 0.4 Mg Tab) 0.4 mg SUBLINGUAL Q5M PRN PRN Reason: Chest Pain Ondansetron HCl (Ondansetron 4 Mg/2 Ml Vial) 4 mg IVP Q6HR PRN PRN Reason: Nausea And Vomiting Last Admin: 10/16/22 21:16 Dose: 4 mg Ticagrelor (Ticagrelor 90 Mg Tab) 90 mg PO BID [facility]; Protocol Last Admin: 10/19/22 09:57 Dose: 90 mg Past medical history: Hypertension, chronic kidney disease, hypothyroid, kidney stones, history of gout Social history: Does not smoke. Alcohol occasionally. 19-year-old son lives with him. on disability. Physical examination: VITAL SIGNS: 97.9, 81, 22, 137/93, 97% room air GENERAL: In bed comfortable EYES: Pupils equal. Conjunctiva normal. HEENT: External appearance of nose and ears normal, oral cavity grossly normal. NECK: JVD not raised; masses not palpable. HEART: First and second heart sounds are normal; no edema. LUNGS: Respiratory rate normal; clear to auscultation. ABDOMEN: Soft, right lower quadrant tenderness, no guarding rigidity, no guarding or rigidity, liver spleen not palpable, no masses palpable. PSYCH: Alert and oriented x3; mood and affect tired INVESTIGATIONS, reviewed in the clinical context: 10/19/2022: Progression 3.4 creatinine 1.68 White count 11 hemoglobin 15.1 platelets 192 sodium 135 BUN 14 creatinine 1.46 Troponin I 30.4 EKG tracing personally reviewed by me-ST elevation in anterior leads and inverted T waves in inferior leads Chest x-ray film personally reviewed by me-portable/no infiltrates Previous labs: Creatinine 1.26 on [February 2020] Assessment and plan: -Acute anterior wall ST elevation myocardial infarction. Emergent cardiac catheterization, by Dr. Brush: 2 stents to the LAD. Aspirin. Coreg. Brillinta -Bilateral nephrolithiasis, with a history of possible oxalate stones -Chronic kidney disease stage III, Baseline creatinine 1.26 -Acute kidney injury, contrast nephropathy. Gentle hydration. 750 mL -Morbid obesity BMI 49.8 Weight loss measures. Dietitian -Hypothyroid Synthroid 137 g -Essential hypertension, with chronic kidney disease Hydralazine, Coreg, -Nonalcoholic fatty liver disease Gentle hydration of 50 mL an hour for total loss and 50 mL given renal function. Repeat labs in the morning. Replace potassium. Coreg dose adjusted.
[2022-10-19] MEDS ORDERED: SODIUM CHLORIDE 0.9% 1,000 ML IV SCH (14:00)
[2022-10-19] MEDS: ATORVASTATIN 80 MG TAB PO SCH (19:59)
[2022-10-20] MEDS: LEVOTHYROXINE 137 MCG TAB PO SCH (06:28)
[2022-10-20] MEDS: carvediloL 12.5 MG TAB PO SCH ×2 (06:28→16:08)
[2022-10-20] MEDS: allopurinoL 100 MG TAB PO SCH (08:17)
[2022-10-20] MEDS: ASPIRIN 81 MG PO SCH (08:17)
[2022-10-20] MEDS: TICAGRELOR 90 MG TAB PO SCH ×2 (08:17→20:20)
[2022-10-20 08:59] LABS: Calcium 8.2 mg/dL (8.4-10.2); Potassium 3.6 mmol/L (3.5-5.1)
--- NOTE | 2022-10-20 12:14 | P.PN ---
Subjective Progress Note Date: 10/20/22 This is Bienvenido Knight NP, I'm dictating on behalf of Dr. Garcia's H&P and A&P. Patient was interviewed and examined. Patient is a pleasant 56-year-old male who initially presented to the hospital with a ST elevated UT. He is status post stenting to the LAD. Patient reports he is feeling better today. He is currently denying chest pain and shortness of breath. Blood pressure is excellently controlled and heart rates are currently controlled as well. GENERAL: Well-appearing, well-nourished and in no acute distress. NECK: Supple without JVD or thyromegaly. LUNGS: Breath sounds clear to auscultation bilaterally. Respiration equal and unlabored. No wheezes, rales or rhonchi. HEART: Regular rate and rhythm without murmurs, rubs or gallops. S1 and S2 heard. EXTREMITIES: Normal range of motion, no edema. No clubbing or cyanosis. Peripheral pulses intact and strong. VITALS: Heart rate 73, respirations 16, blood pressure 114/65, O2 saturation 97% on room air TELEMETRY: Normal sinus rhythm LABS: Sodium 137, potassium 3.6, B1 23, creatinine 1.64 IMPRESSION: 1. Anterior wall ST elevated myocardial infarction 2. Status post stenting of the LAD 3. Ischemic cardiomyopathy 4. Chronic kidney disease secondary to kidney stones 5. Morbid obesity 6. History of hypertension 7. History of hypothyroid PLAN: Patient may be discharged home from a cardiology standpoint. Patient should have a blood pressure monitor. When his kidney function improves, recommend starting TESS or ARB at low dose. Thank you for allowing us to speak care of this patient. If further recommendations are needed, please do hesitate to reconsult. Objective - Vital Signs Vital signs: Vital Signs Temp 97.9 F 10/19/22 19:56 Pulse 73 10/20/22 08:00 Resp 16 10/20/22 08:00 BP 114/65 10/20/22 08:00 Pulse Ox 97 10/20/22 08:14 FiO2 Intake & Output 10/19/22 10/20/22 10/20/22 18:59 06:59 18:59 Intake Total 461 236 Output Total 400 Balance 461 -400 236 Intake: Intake, IV Titration 225 Amount Sodium Chloride 0.9% 1, 225 000 ml @ 75 mls/hr IV . [id number] [facility] Rx#:[id number] Oral 236 236 Output: Urine 400 Other: Voiding Method Urinal Urinal Urinal # Voids 1 # Bowel Movements 1 - Labs CBC & Chem 7: 10/16/22 17:37 10/20/22 07:46 Labs: Abnormal Lab Results - Last 24 Hours (Table) 10/20/22 Range/Units 07:46 BUN 23 H (9-20) mg/dL Creatinine 1.64 H (0.66-1.25) mg/dL Glucose 118 H (74-99) mg/dL Calcium 8.2 L (8.4-10.2) mg/dL
--- NOTE | 2022-10-20 19:01 | P.PN ---
Progress Note - Text Progress Note Date: 10/20/22 Chief Complaint: Chest pain History of presenting complaint: This is a pleasant 56-year-old patient of Dr. Hand. Chronic stable medical conditions include hypertension, hypothyroid and obesity, chronic kidney disease. Also multiple kidney stones-different procedures done. He follows with Dr. Koroma from urology. He believes he has calcium oxalate stones. Patient yesterday started off having pressure across the chest progressively getting worse. Going up to the upper part of the chest. No dizziness no lightheadedness nose shortness of breath no perspiration. Weak tired rundown. Pain progressively got worse and decided to come into the ER. Patient is found to have ST elevation HI and patient ended up getting 2 stents to the LAD. Postprocedure in the ICU. Blood pressures running on the higher side. Medications being adjusted. Currently no chest pain. In the recliner. 10/18/2022: ICU. Doing better. Did ambulate. No chest pain or short of breath. Good oral intake. Blood pressure better controlled. 10/19/2022: Moved to the medical floor. Coreg changed to 25 mg twice a day for blood pressure. Up and about. No cardiac symptoms. Discussed. 10/20/2022: Comfortable. Up to the bathroom. Patient was to be discharged today. Later nurse called me that family is concerned and patient will need rehab. PTOT consulted. Case was consulted. Active Medications Acetaminophen (Acetaminophen Tab 325 Mg Tab) 325 mg PO Q6HR PRN PRN Reason: Fever and/ or Pain Al Hydroxide/Mg Hydroxide (Mag Hydrox/Al Hydrox/Simeth 30 Ml Cup) 30 ml PO Q4HR PRN PRN Reason: Heartburn Last Admin: 10/16/22 20:49 Dose: 30 ml Allopurinol (Allopurinol 100 Mg Tab) 100 mg PO DAILY [facility] Last Admin: 10/20/22 08:17 Dose: 100 mg Aspirin (Aspirin 81 Mg) 81 mg PO DAILY [facility] Last Admin: 10/20/22 08:17 Dose: 81 mg Atorvastatin Calcium (Atorvastatin 80 Mg Tab) 80 mg PO HS [facility] Last Admin: 10/19/22 19:59 Dose: 80 mg Carvedilol (Carvedilol 12.5 Mg Tab) 25 mg PO BID-W/MEALS [facility] Last Admin: 10/20/22 16:08 Dose: 25 mg Levothyroxine Sodium (Levothyroxine 137 Mcg Tab) 137 mcg PO DAILY@0630 [facility] Last Admin: 10/20/22 06:28 Dose: 137 mcg Miscellaneous Information (Potassium Replacement Protocol 1 Each Misc) 1 each MISCELLANE DAILY PRN; Protocol PRN Reason: Per Protocol Nitroglycerin (Nitroglycerin Sl Tabs 0.4 Mg Tab) 0.4 mg SUBLINGUAL Q5M PRN PRN Reason: Chest Pain Ondansetron HCl (Ondansetron 4 Mg/2 Ml Vial) 4 mg IVP Q6HR PRN PRN Reason: Nausea And Vomiting Last Admin: 10/16/22 21:16 Dose: 4 mg Ticagrelor (Ticagrelor 90 Mg Tab) 90 mg PO BID [facility]; Protocol Last Admin: 10/20/22 08:17 Dose: 90 mg Past medical history: Hypertension, chronic kidney disease, hypothyroid, kidney stones, history of gout Social history: Does not smoke. Alcohol occasionally. 19-year-old son lives with him. on d isability. Physical examination: VITAL SIGNS: Afebrile, 73, 16, 140s/65, 97% room air GENERAL: In bed comfortable EYES: Pupils equal. Conjunctiva normal. HEENT: External appearance of nose and ears normal, oral cavity grossly normal. NECK: JVD not raised; masses not palpable. HEART: First and second heart sounds are normal; no edema. LUNGS: Respiratory rate normal; clear to auscultation. ABDOMEN: Soft, right lower quadrant tenderness, no guarding rigidity, no guarding or rigidity, liver spleen not palpable, no masses palpable. PSYCH: Alert and oriented x3; mood and affect tired INVESTIGATIONS, reviewed in the clinical context: 10/20/2022: Creatinine 1.64 10/19/2022: Progression 3.4 creatinine 1.68 White count 11 hemoglobin 15.1 platelets 192 sodium 135 BUN 14 creatinine 1.46 Troponin I 30.4 EKG tracing personally reviewed by me-ST elevation in anterior leads and inverted T waves in inferior leads Chest x-ray film personally reviewed by me-portable/no infiltrates Previous labs: Creatinine 1.26 on [February 2020] Assessment and plan: -Acute anterior wall ST elevation myocardial infarction. Emergent cardiac catheterization, by Dr. Brush: 2 stents to the LAD. Aspirin . Coreg. Brillinta -Bilateral nephrolithiasis, with a history of possible oxalate stones -Chronic kidney disease stage III, Baseline creatinine 1.26 -Acute kidney injury, contrast nephropathy. Gentle hydration. 750 mL -Morbid obesity BMI 49.8 Weight loss measures. Dietitian -Hypothyroid Synthroid 137 g -Essential hypertension, with chronic kidney disease Hydralazine, Coreg, -Nonalcoholic fatty liver disease Family concerned about patient's tiredness. 1 patient to be evaluated for rehab. PTOT. Continue current meds
[2022-10-20] MEDS: ATORVASTATIN 80 MG TAB PO SCH (20:20)
[2022-10-21] MEDS: carvediloL 12.5 MG TAB PO SCH ×2 (06:28→17:33)
[2022-10-21] MEDS: LEVOTHYROXINE 137 MCG TAB PO SCH (06:29)
[2022-10-21] MEDS: ASPIRIN 81 MG PO SCH (07:44)
[2022-10-21] MEDS: allopurinoL 100 MG TAB PO SCH (07:44)
[2022-10-21] MEDS: TICAGRELOR 90 MG TAB PO SCH ×2 (07:59→20:18)
--- NOTE | 2022-10-21 17:31 | P.PN ---
Progress Note - Text Progress Note Date: 10/21/22 Chief Complaint: Chest pain History of presenting complaint: This is a pleasant 56-year-old patient of Dr. Hadn. Chronic stable medical conditions include hypertension, hypothyroid and obesity, chronic kidney disease. Also multiple kidney stones-different procedures done. He follows with Dr. Koroma from urology. He believes he has calcium oxalate stones. Patient yesterday started off having pressure across the chest progressively getting worse. Going up to the upper part of the chest. No dizziness no lightheadedness nose shortness of breath no perspiration. Weak tired rundown. Pain progressively got worse and decided to come into the ER. Patient is found to have ST elevation MD and patient ended up getting 2 stents to the LAD. Postprocedure in the ICU. Blood pressures running on the higher side. Medications being adjusted. Currently no chest pain. In the recliner. 10/18/2022: ICU. Doing better. Did ambulate. No chest pain or short of breath. Good oral intake. Blood pressure better controlled. 10/19/2022: Moved to the medical floor. Coreg changed to 25 mg twice a day for blood pressure. Up and about. No cardiac symptoms. Discussed. 10/20/2022: Comfortable. Up to the bathroom. Patient was to be discharged today. Later nurse called me that family is concerned and patient will need rehab. PTOT consulted. Case was consulted. 10/21/2022: Had a lengthy talk with the patient. He is able to walk normally with a cane. PTOT consulted. Spoke to manager of case. Looking into possible to rehab. He does not want to go to his family to stay off or discharge. Active Medications Acetaminophen (Acetaminophen Tab 325 Mg Tab) 325 mg PO Q6HR PRN PRN Reason: Fever and/ or Pain Al Hydroxide/Mg Hydroxide (Mag Hydrox/Al Hydrox/Simeth 30 Ml Cup) 30 ml PO Q4HR PRN PRN Reason: Heartburn Last Admin: 10/16/22 20:49 Dose: 30 ml Allopurinol (Allopurinol 100 Mg Tab) 100 mg PO DAILY [facility] Last Admin: 10/21/22 07:44 Dose: 100 mg Aspirin (Aspirin 81 Mg) 81 mg PO DAILY [facility] Last Admin: 10/21/22 07:44 Dose: 81 mg Atorvastatin Calcium (Atorvastatin 80 Mg Tab) 80 mg PO HS [facility] Last Admin: 10/20/22 20:20 Dose: 80 mg Carvedilol (Carvedilol 12.5 Mg Tab) 25 mg PO BID-W/MEALS [facility] Last Admin: 10/21/22 06:28 Dose: 25 mg Levothyroxine Sodium (Levothyroxine 137 Mcg Tab) 137 mcg PO DAILY@0630 [facility] Last Admin: 10/21/22 06:29 Dose: 137 mcg Miscellaneous Information (Potassium Replacement Protocol 1 Each Misc) 1 each MISCELLANE DAILY PRN; Protocol PRN Reason: Per Protocol Nitroglycerin (Nitroglycerin Sl Tabs 0.4 Mg Tab) 0.4 mg SUBLINGUAL Q5M PRN PRN Reason: Chest Pain Ondansetron HCl (Ondansetron 4 Mg/2 Ml Vial) 4 mg IVP Q6HR PRN PRN Reason: Nausea And Vomiting Last Admin: 10/16/22 21:16 Dose: 4 mg Ticagrelor (Ticagrelor 90 Mg Tab) 90 mg PO BID [facility]; Protocol Last Admin: 10/21/22 07:59 Dose: 90 mg Past medical history: Hypertension, chronic kidney disease, hypothyroid, kidney stones, history of gout Social history: Does not smoke. Alcohol occasionally. 19-year-old son lives with him. on disability. Physical examination: VITAL SIGNS: 98, 80, 16, 129/83, 96% room air GENERAL: Sitting up, comfortable EYES: Pupils equal. Conjunctiva normal. HEENT: External appearance of nose and ears normal, oral cavity grossly normal. NECK: JVD not raised; masses not palpable. HEART: First and second heart sounds are normal; no edema. LUNGS: Respiratory rate normal; clear to auscultation. ABDOMEN: Soft, no tenderness, no guarding rigidity, no guarding or rigidity, liver spleen not palpable, no masses palpable. PSYCH: Alert and oriented x3; mood and affect tired INVESTIGATIONS, reviewed in the clinical context: 10/20/2022: Creatinine 1.64 10/19/2022: Progression 3.4 creatinine 1.68 White count 11 hemoglobin 15.1 platelets 192 sodium 135 BUN 14 creatinine 1.46 Troponin I 30.4 EKG tracing personally reviewed by me-ST elevation in anterior leads and inverted T waves in inferior leads Chest x-ray film personally reviewed by me-portable/no infiltrates Previous labs: Creatinine 1.26 on [February 2020] Assessment and plan: -Acute anterior wall ST elevation myocardial infarction. Emergent cardiac catheterization, by Dr. Brush: 2 stents to the LAD. Aspirin. Coreg. Brillinta -Bilateral nephrolithiasis, with a history of possible oxalate stones -Chronic kidney disease stage III, Baseline creatinine 1.26 -Acute kidney injury, contrast nephropathy. Gentle hydration. 750 mL -Morbid obesity BMI 49.8 Weight loss measures. Dietitian -Hypothyroid Synthroid 137 g -Essential hypertension, with chronic kidney disease Hydralazine, Coreg, -Nonalcoholic fatty liver disease Seen by PTOT today. airport operations duty manager looking into placement. Discussed with patient.
[2022-10-21] MEDS: ATORVASTATIN 80 MG TAB PO SCH (20:18)
[2022-10-22] MEDS: LEVOTHYROXINE 137 MCG TAB PO SCH (06:23)
[2022-10-22] MEDS: carvediloL 12.5 MG TAB PO SCH (06:23)
[2022-10-22] MEDS: ASPIRIN 81 MG PO SCH (07:47)
[2022-10-22] MEDS: TICAGRELOR 90 MG TAB PO SCH (07:47)
[2022-10-22] MEDS: allopurinoL 100 MG TAB PO SCH (07:48)
[2022-10-22 07:50] VITALS: RESP 16
--- NOTE | 2022-10-22 12:33 | P.DS ---
Providers Date of admission: 10/16/22 17:51 Expected date of discharge: 10/22/22 Attending physician: Mukesh Kenyon Consults: 10/16/22 19:22 Consult Physician Routine Consulting Provider: [facility] Consult Reason/Comments: Post Interventional Patient Do you want consulting provider notified?: Already Contacted Primary care physician: [facility] Course: Chief Complaint: Chest pain History of presenting complaint: This is a pleasant 56-year-old patient of Dr. Hand. Chronic stable medical conditions include hypertension, hypothyroid and obesity, chronic kidney disease. Also multiple kidney stones-different procedures done. He follows with Dr. Koroma from urology. He believes he has calcium oxalate stones. Patient yesterday started off having pressure across the chest progressively getting worse. Going up to the upper part of the chest. No dizziness no lightheadedness nose shortness of breath no perspiration. Weak tired rundown. Pain progressively got worse and decided to come into the ER. Patient is found to have ST elevation [place] and patient ended up getting 2 stents to the LAD. Postprocedure in the ICU. Blood pressures running on the higher side. Medications being adjusted. Currently no chest pain. In the recliner. 10/18/2022: ICU. Doing better. Did ambulate. No chest pain or short of breath. Good oral intake. Blood pressure better controlled. 10/19/2022: Moved to the medical floor. Coreg changed to 25 mg twice a day for blood pressure. Up and about. No cardiac symptoms. Discussed. 10/20/2022: Comfortable. Up to the bathroom. Patient was to be discharged today. Later nurse called me that family is concerned and patient will need rehab. PTOT consulted. Case was consulted. 10/21/2022: Had a lengthy talk with the patient. He is able to walk normally with a cane. PTOT consulted. Spoke to continuous pillowcase cutter. Looking into possible to rehab. He does not want to go to his family to stay off or discharge. 10/22/2022: Patient has been accepted at rehab at the [facility] in [place]. Discussed with the patient. Questions answered. Patient to follow-up with cardiology upon discharge. Discussion and discharge planning more than 35 minutes Past medical history: Hypertension, chronic kidney disease, hypothyroid, kidney stones, history of gout Social history: Does not smoke. Alcohol occasionally. 19-year-old son lives with him. on disability. Physical examination: VITAL SIGNS: 98.2, 73, 16, 133/85, 97% room air GENERAL: Reclining in bed comfortable EYES: Pupils equal. Conjunctiva normal. HEENT: External appearance of nose and ears normal, oral cavity grossly normal. NECK: JVD not raised; masses not palpable. HEART: First and second heart sounds are normal; no edema. LUNGS: Respiratory rate normal; clear to auscultation. ABDOMEN: Soft, no tenderness, no guarding rigidity, no guarding or rigidity, liver spleen not palpable, no masses palpable. PSYCH: Alert and oriented x3; mood and affect tired INVESTIGATIONS, reviewed in the clinical context: COVID-19: Not detected 10/20/2022: Creatinine 1.64 10/19/2022: Progression 3.4 creatinine 1.68 White count 11 hemoglobin 15.1 platelets 192 sodium 135 BUN 14 creatinine 1.46 Troponin I 30.4 EKG tracing personally reviewed by me-ST elevation in anterior leads and inverted T waves in inferior leads Chest x-ray film personally reviewed by me-portable/no infiltrates Previous labs: Creatinine 1.26 on [February 2020] Assessment and plan: -Acute anterior wall ST elevation myocardial infarction. Emergent cardiac catheterization, by Dr. Brush: 2 stents to the LAD. Aspirin. Coreg. Brillinta -Bilateral nephrolithiasis, with a history of possible oxalate stones -Chronic kidney disease stage III, from nephrosclerosis Baseline creatinine 1.26. Follow-up outpatient with nephrology -Acute kidney injury, contrast nephropathy. Given hydration -Morbid obesity BMI 49.8 Weight loss measures. Dietitian -Hypothyroid Synthroid 137 g -Essential hypertension, with chronic kidney disease Hydralazine, Coreg, -Nonalcoholic fatty liver disease Disposition: Rehab at [facility]. Labs: CBC BMP 3 days Plan - Discharge Summary New Discharge Prescriptions: New Atorvastatin [Lipitor] 80 mg PO HS #30 tab Aspirin 81 mg PO DAILY tab Ticagrelor [Brilinta] 90 mg PO BID #60 tab carvediloL [Coreg] 25 mg PO BID #60 tab Nitroglycerin Sl Tabs [Nitrostat] 0.4 mg SUBLINGUAL Q5M PRN #30 tab PRN Reason: Chest Pain Continue Levothyroxine Sodium [Synthroid] 137 mcg PO DAILY allopurinoL [Zyloprim] 100 mg PO DAILY Discontinued cloNIDine HCL [Catapres] 0.2 mg PO TID hydrALAZINE HCL [Apresoline] 50 mg PO TID #90 tab Discharge Medication List allopurinoL [Zyloprim] 100 mg PO DAILY 04/29/21 [History] Levothyroxine Sodium [Synthroid] 137 mcg PO DAILY 04/30/21 [History] Aspirin 81 mg PO DAILY tab 10/20/22 [Rx] Atorvastatin [Lipitor] 80 mg PO HS #30 tab 10/20/22 [Rx] Nitroglycerin Sl Tabs [Nitrostat] 0.4 mg SUBLINGUAL Q5M PRN #30 tab 10/20/22 [Rx] Ticagrelor [Brilinta] 90 mg PO BID #60 tab 10/20/22 [Rx] carvediloL [Coreg] 25 mg PO BID #60 tab 10/20/22 [Rx] Follow up Appointment(s)/Referral(s): Homero Brush DO [STAFF PHYSICIAN] - 11/04/22 2:45 pm Torrey Hand MD [Primary Care Provider] - 1 Week Patient Instructions/Handouts: Heart Attack (GEN), Heart Healthy Diet (GEN), After Radial Heart Catheterization (GEN)
[2022-10-22 14:18] VITALS: BP 134/88; PULSE 76; TEMP 98
== END 2022-10-22 16:07 | disposition swing bed (61) | DRG 247 ==
LOC: EC 17:26 → SUPCPDRO 17:26 → 2SICU 17:51 → 3SCARD 10-19 12:07 → 6NMEDSUR 10-20 17:26
PROVIDERS: ADMIT Hospitalist; ATTEND Hospitalist
PROC: 027035Z Dilation of Coronary Artery, One Artery with Two Drug-eluting Intraluminal Devices, Percutaneous Approach (ICD-10-PCS; principal; 2022-10-16 17:44)
PROC: B240ZZ3 Ultrasonography of Single Coronary Artery, Intravascular (ICD-10-PCS; principal; 2022-10-16 17:44)
PROC: B2111ZZ Fluoroscopy of Multiple Coronary Arteries using Low Osmolar Contrast (ICD-10-PCS; principal; 2022-10-16 17:44)
PROC: 4A023N7 Measurement of Cardiac Sampling and Pressure, Left Heart, Percutaneous Approach (ICD-10-PCS; principal; 2022-10-16 17:44)
PROC: 02C03ZZ Extirpation of Matter from Coronary Artery, One Artery, Percutaneous Approach (ICD-10-PCS; principal; 2022-10-16 17:44)
DX: I21.09 ST elevation (STEMI) myocardial infarction involving other coronary artery of anterior wall (principal); N17.9 Acute kidney failure, unspecified; Z68.42 Body mass index [BMI] 45.0-49.9, adult; E11.22 Type 2 diabetes mellitus with diabetic chronic kidney disease; K76.0 Fatty (change of) liver, not elsewhere classified; E66.01 Morbid (severe) obesity due to excess calories; N18.30 Chronic kidney disease, stage 3 unspecified; Z20.822 Contact with and (suspected) exposure to COVID-19; I25.10 Atherosclerotic heart disease of native coronary artery without angina pectoris; I12.9 Hypertensive chronic kidney disease with stage 1 through stage 4 chronic kidney disease, or unspecified chronic kidney disease; I25.5 Ischemic cardiomyopathy; I35.0 Nonrheumatic aortic (valve) stenosis; E03.9 Hypothyroidism, unspecified; N14.11 Contrast-induced nephropathy; T50.8X5A Adverse effect of diagnostic agents, initial encounter; N20.0 Calculus of kidney; M10.9 Gout, unspecified; Z79.890 Hormone replacement therapy; Z79.899 Other long term (current) drug therapy; Z87.440 Personal history of urinary (tract) infections; Z87.442 Personal history of urinary calculi; Z71.3 Dietary counseling and surveillance; Z88.1 Allergy status to other antibiotic agents; Z88.2 Allergy status to sulfonamides
CPT/HCPCS: 71045; 80048; 80053; 82565; 83735; 84132; 84484; 85025; 85610; 85730; 87635; 92973; 92978; 93005; 93306; 93458; 94760; 99285